=== PATIENT | female | born 1950 | race Caucasian/White ===

== ENCOUNTER → 2019-11-27 08:53 | Outpatient (BNVA) | payer MEDICARE, MEDICAID, SELFPAY | PROVIDERS: Family Provider Internal Medicine; PCP Internal Medicine; Visit Provider Specialist | DX: G43.711 Chronic migraine without aura, intractable, with status migrainosus (principal) | CPT/HCPCS: 64615; J0585 ==

== ENCOUNTER → 2019-12-24 07:54 | Outpatient (BNVA) | payer MEDICARE, MEDICAID, SELFPAY | PROVIDERS: Family Provider Internal Medicine; PCP Internal Medicine; Visit Provider Nurse Practitioner Psychiatric/Mental Health | DX: F25.1 Schizoaffective disorder, depressive type (principal); F41.1 Generalized anxiety disorder; G89.29 Other chronic pain; M54.42 Lumbago with sciatica, left side; M79.651 Pain in right thigh; M79.652 Pain in left thigh; Z79.891 Long term (current) use of opiate analgesic | CPT/HCPCS: 99213; 99214 ==

== ENCOUNTER → 2020-02-20 08:42 | Outpatient (BNVA) | payer MEDICARE, MEDICAID, SELFPAY | PROVIDERS: Family Provider Internal Medicine; PCP Internal Medicine; Visit Provider Nurse Practitioner | DX: Z76.89 Persons encountering health services in other specified circumstances (principal) ==

== ENCOUNTER → 2020-03-18 07:52 | Outpatient (BNVA) | payer MEDICARE, MEDICAID, SELFPAY | PROVIDERS: Family Provider Internal Medicine; PCP Internal Medicine; Visit Provider Specialist | DX: G43.711 Chronic migraine without aura, intractable, with status migrainosus (principal); Z87.891 Personal history of nicotine dependence; Z79.891 Long term (current) use of opiate analgesic | CPT/HCPCS: 64615; J0585; J1885 ==

== ENCOUNTER → 2020-03-31 07:37 | Outpatient (BNVA) | payer MEDICARE, MEDICAID, SELFPAY | PROVIDERS: Family Provider Internal Medicine; PCP Internal Medicine; Visit Provider Nurse Practitioner Psychiatric/Mental Health | DX: F25.1 Schizoaffective disorder, depressive type (principal); F41.1 Generalized anxiety disorder | CPT/HCPCS: 99213 ==

== ENCOUNTER → 2020-05-18 07:18 | Outpatient (BNVA) | payer MEDICARE, MEDICAID, SELFPAY | PROVIDERS: Family Provider Internal Medicine; PCP Internal Medicine; Visit Provider Nurse Practitioner Psychiatric/Mental Health | DX: F25.1 Schizoaffective disorder, depressive type (principal); F41.1 Generalized anxiety disorder | CPT/HCPCS: 99213 ==

== ENCOUNTER → 2020-06-02 10:18 | Outpatient (BNVA) | payer MEDICARE, MEDICAID, SELFPAY | PROVIDERS: Family Provider Internal Medicine; PCP Internal Medicine; Visit Provider Nurse Practitioner | DX: G89.29 Other chronic pain (principal); M54.42 Lumbago with sciatica, left side; Z79.891 Long term (current) use of opiate analgesic | CPT/HCPCS: 99213 ==

== ENCOUNTER → 2020-06-10 07:50 | Outpatient (BNVA) | payer MEDICARE, MEDICAID, SELFPAY | PROVIDERS: Family Provider Internal Medicine; PCP Internal Medicine; Visit Provider Specialist | DX: G43.711 Chronic migraine without aura, intractable, with status migrainosus (principal) | CPT/HCPCS: 64615; J0585 ==

== ENCOUNTER → 2020-07-06 07:35 | Outpatient (BNVA) | payer MEDICARE, MEDICAID, SELFPAY | PROVIDERS: Family Provider Internal Medicine; PCP Internal Medicine; Visit Provider Nurse Practitioner Psychiatric/Mental Health | DX: F25.1 Schizoaffective disorder, depressive type (principal); F41.1 Generalized anxiety disorder | CPT/HCPCS: 99213 ==

== ENCOUNTER → 2020-07-29 08:47 | Outpatient (BNVA) | payer MEDICARE, MEDICAID, SELFPAY | PROVIDERS: Family Provider Internal Medicine; PCP Internal Medicine; Visit Provider Nurse Practitioner | DX: G89.29 Other chronic pain (principal); M54.42 Lumbago with sciatica, left side; Z79.891 Long term (current) use of opiate analgesic | CPT/HCPCS: 99214 ==

== ENCOUNTER → 2020-08-17 07:32 | Outpatient (BNVA) | payer MEDICARE, MEDICAID, SELFPAY | PROVIDERS: Family Provider Internal Medicine; PCP Internal Medicine; Visit Provider Nurse Practitioner Psychiatric/Mental Health | DX: F25.1 Schizoaffective disorder, depressive type (principal); F41.1 Generalized anxiety disorder | CPT/HCPCS: 99213 ==

== ENCOUNTER → 2020-09-23 08:21 | Outpatient (BNVA) | payer MEDICARE, MEDICAID, SELFPAY | PROVIDERS: Family Provider Internal Medicine; PCP Internal Medicine; Visit Provider Anesthesiology | DX: G43.711 Chronic migraine without aura, intractable, with status migrainosus (principal); G89.29 Other chronic pain; M54.42 Lumbago with sciatica, left side; Z79.891 Long term (current) use of opiate analgesic | CPT/HCPCS: 64615; 99213; 99214; J0585 ==

== ENCOUNTER → 2020-10-12 07:21 | Outpatient (BNVA) | payer MEDICARE, MEDICAID, SELFPAY | PROVIDERS: Family Provider Internal Medicine; PCP Internal Medicine; Visit Provider Nurse Practitioner Psychiatric/Mental Health | DX: F25.1 Schizoaffective disorder, depressive type (principal); F41.1 Generalized anxiety disorder | CPT/HCPCS: 99213 ==

== ENCOUNTER → 2020-12-02 10:34 | Outpatient (BNVA) | payer MEDICARE, MEDICAID, SELFPAY | PROVIDERS: Family Provider Internal Medicine; PCP Internal Medicine; Visit Provider Nurse Practitioner | DX: G89.29 Other chronic pain (principal); M54.42 Lumbago with sciatica, left side; M54.41 Lumbago with sciatica, right side; M54.6 Pain in thoracic spine; G43.711 Chronic migraine without aura, intractable, with status migrainosus; Z79.891 Long term (current) use of opiate analgesic | CPT/HCPCS: 99215 ==

== ENCOUNTER → 2020-12-07 07:44 | Outpatient (BNVA) | payer MEDICARE, MEDICAID, SELFPAY | PROVIDERS: Family Provider Internal Medicine; PCP Internal Medicine; Visit Provider Nurse Practitioner Psychiatric/Mental Health | DX: F25.1 Schizoaffective disorder, depressive type (principal); F41.1 Generalized anxiety disorder; Z63.79 Other stressful life events affecting family and household | CPT/HCPCS: 99214 ==

== ENCOUNTER 2020-12-10 13:29 | Outpatient (CLI) | payer MEDICARE, MEDICAID, SELFPAY ==
--- NOTE | 2020-12-10 13:48 | MM_ITS ---
WS: [id number] BILATERAL SCREENING DIGITAL MAMMOGRAM WITH CAD HISTORY: SCREENING COMPARISON: 08/26/2018, 06/20/2011 and 03/30/2017 Bilateral CC and MLO views submitted. Computer aided detection analyzed. Breast composition: There are scattered areas of fibroglandular density. No suspicious masses, microc alcifications or architectural distortion. There are bilateral breast nodules and calcifications whic h have been present on prior studies with no increase. MM/[place] [id number] IMPRESSION: BI-RADS: 2-Benign FOLLOW UP: 1 Year Follow-up
== END 2020-12-10 13:30 | disposition home or self-care (01) ==
PROVIDERS: Family Provider Internal Medicine; PCP Internal Medicine; Visit Provider Internal Medicine
DX: Z12.31 Encounter for screening mammogram for malignant neoplasm of breast (principal)
CPT/HCPCS: 77067

== ENCOUNTER 2020-12-13 09:46 | Outpatient (CLI) | payer MEDICARE, MEDICAID, SELFPAY ==
--- NOTE | 2020-12-13 17:14 | ONC CON_ITS ---
Dr. Flores New Patient Note Patient: Kalyani Cassidy Unit #: [id number]: 1950 Dicatated By: Miller Flores M.D.Date of Visit: Dec 13, 2020 Onc MED New Patient/Consult Referring Physician: Shara Nguyen Chief Complaint: Lung cancer. History of Present Illness: This is a 70-year-old woman with newly diagnosed lung cancer. She has COPD and she had been referred to a fur blender about a year ago. On her follow-up visit in August [address] reported a new slightly spiculated pleural-based nodule in the right upper lobe measuring 2.2 x 1.1 cm. The appearance was suspicious for malignancy. Other small nodules in the left lung appeared stable. An 8 mm precarinal lymph node appeared stable. Calcified subcarinal lymph nodes appeared consistent with old granulomatous disease. Further evaluation with PET/CT on 10/06/2020 showed FDG avid dominant mass in the posterior right upper lobe measuring 1.6 x 2.1 cm, SUV 15.8, consistent with primary lung cancer. Other subcentimeter nodules were FDG negative. There were no other areas of abnormal uptake noted on that study. She underwent CT directed needle biopsy of the right upper lobe mass on 11/25/2020. Pathology showed scant poorly differentiated carcinoma. The reported differential included but was not limited to small cell carcinoma or basaloid squamous cell carcinoma. There was insufficient tissue available for further analysis. She is seen now for further management. She has not had good energy lately, as she unfortunately has been suffering significant depression due to her significant other having recently of cancer. Her ECOG score is 1. Her appetite has been good and her weight has been stable. She has not had fever. She does report having some hot flashes and sweating. She sometimes has sore throat or difficulty swallowing, attributable to her inhalers. She has shortness of breath, but she does not complain of cough. She sometimes has chest pain. She reports having some acid reflux. She has no other GI or complaints. She has some chronic back pain and she also has arthritis pain in her knees. She has chronic migraine, for which she has been getting Botox injections. 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 Past Medical History: Her medical history consists of anxiety, chronic migraine, chronic obstructive pulmonary disease, degenerative arthritis, degenerative disease of the spine, depression, hypertension, and thyroid disease. She has coronary artery disease which is managed medically. She has a history of stroke x 2 in association with patent foramen ovale in 2009. Past Surgical History: Her surgical/procedural history includes appendectomy, left oophorectomy for ovarian cyst, right side of thyroid removed, tubal ligation, cholecystectomy in 2017, EGD and colonoscopy in 2013, and closure of patent foramen ovale in 2010. Medications: Albuterol Sulfate 1 Inhalation (of 2.5 mg/0.5mL) Aerosol Powder, Breath Activated Inhalation q 4 hours PRN, ALPRAZolam 1 Tablet (of 0.25 mg) Oral t.i.d. PRN, amLODIPine Besylate 1 Tablet (of 2.5 mg) Oral daily, [facility] Mucus Extended Release 1 Tablet (of 600 mg) Tablet SR 12 HR Oral four times a day PRN, [facility] Stool Softener 1 Capsule (of 100 mg) Oral four times a day PRN, Daliresp 1 Tablet (of 500 mcg) Oral daily, Escitalopram Oxalate 1 Tablet (of 10 mg) Oral daily, Euthyrox 1 Tablet (of 75 mcg) Oral daily, HYDROcodone-Acetaminophen 1 Tablet (of 5-325 mg) Oral b.i.d. PRN, Meclizine HCl 2 Tablet (of 12.5 mg) Oral daily, methIMAzole 1 Tablet (of 5 mg) Oral daily, Montelukast Sodium 1 Tablet (of 10 mg) Oral daily, Naproxen 500 mg Tablet Oral b.i.d. PRN, Nitro-Dur 1 Patch(es) (of 0.3 mg/hr) Patch 24 Hr Transdermal daily, Pantoprazole Sodium 1 Tablet (of 40 mg) Tablet, enteric coated Oral b.i.d., tiZANidine HCl 1 Tablet (of 2 mg) Oral t.i.d. PRN, traMADol HCl 1 Tablet (of 50 mg) Oral t.i.d. PRN, Trelegy Ellipta 1 Inhalation (of 100-62.5-25 mcg/inh) Aerosol Powder, Breath Activated Inhalation daily Allergies: bee stings and peanuts. Social History: Ms. Cassidy is . She has a history of smoking 1-1/2 packs of cigarettes daily beginning at age 15. She quit smoking at age 62. She does not drink alcohol. Family History: Father with heart disease at age 78. Mother at age 92, also with suspected heart disease. One sister is in good health at age 73. Review Of Symptoms: Constitutional - She has fatigue commonly some which is associated with depression. Her appetite has been good and her weight has been stable. She has not had fever. She does have some hot flashes and sweating. ECOG score is 1, Eyes - No change in vision, ENMT - She has had some hearing loss on the right. No tinnitus. She has sinus congestion/drainage. No mouth sores. She sometimes has sore throat and difficulty swallowing, Hematologic/Lymphatic - No abnormal bruising or bleeding, Respiratory - She has shortness of breath. No cough. No pleuritic pain or hemoptysis, Cardiovascular - She sometimes has chest pain. No palpitations, Gastrointestinal - No nausea or vomiting. She has acid reflux. No diarrhea or constipation. No blood in the stool or black stools, Genitourinary (F) - No dysuria or hematuria. No urinary frequency. No urgency or incontinence, Musculoskeletal - She has a little bit of arthritis, mainly in the knees. She has chronic back pain, Integumentary - No skin rash, Neurologic - She has migraine headaches. She has been on treatment with Botox. She has dizziness. She has some residual numbness on the right side from her previous strokes. No other focal neurologic symptoms, Psychiatric - Her significant other had recently of cancer, that has worsened her depression significantly. She has difficulty sleeping. Vital Signs: Performed on Dec 13, 2020 10:49: 5, 5, 27.28, 1.64 sq.m, 61 in, 97 %, 76 /min, 18 /min, 142/70 mm(hg) (HIGH), 97.1 F (LOW), and 144.4 lbs (HIGH). Physical Examination: Constitutional - She looks pretty good generally, Eyes - Sclerae nonicteric. Conjunctivae clear, ENMT - No lesions noted in the oral cavity, Neck - No mass or thyromegaly, Hematologic/Lymphatic - No cervical, clavicular, or axillary adenopathy, Respiratory - Lungs are clear with diminished air movement bilaterally, Cardiovascular - Heart tones are distant. The rhythm appears regular. There is no murmur, gallop, or rub noted, Abdomen - Soft and non-tender. Liver and spleen are not enlarged. There is no abdominal mass or ascites noted and there is no inguinal adenopathy, Back/Spine - No spine or CVA tenderness noted, Extremities - No edema. Pedal pulses are palpable bilaterally, Integumentary - No rashes. No suspicious skin lesions noted, Neurologic - No focal neurologic deficits noted. Problem List: 1. 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 By clinical evaluation her disease appears to be stage IA3 (T1c, N0, M0). Further pathologic analysis was not possible due to insufficient biopsy material. It is, however, a peripheral lesion and by imaging the appearance is more consistent with non-small cell cancer. 2. COPD with pulmonary function studies from December 2018 showing FEV1 2.09 and FVC 2.75. 3. Hypertension. 4. Coronary artery disease, managed medically. 5. History of stroke in 2009 associated with patent foramen ovale. She underwent PFO closure in 2010. 6. She has history of thyroid disease followed by an prepared foods supervisor. 7. Degenerative arthritis/degenerative disease of the spine. 8. Chronic migraine. 9. Anxiety/depression. 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 By clinical evaluation her disease appears to be stage IA3 (T1c, N0, M0). Further pathologic analysis was not possible due to insufficient biopsy material. I reviewed the CT images which confirm a peripherally located pulmonary nodule. Given the fact that it is pleural-based, it would more likely be a non-small cell cancer, but that cannot be determined with certainty without additional biopsy. I reviewed the CT findings and pathology results with the patient. As her disease appears to be localized, it may potentially be operable. The other treatment option would be SBRT. I did review the CT with the radiation oncologist to confirm that it would be amenable to SBRT. I will plan now to review the scans with Dr. De Souza. If the lesion does appear to be resectable, she would need additional evaluation to determine if she is medically suitable for surgery. If for any reason she is deemed unsuitable for surgery, she will be referred for SBRT. Signed By: Miller Flores M.D. <<Signature on File>>
--- NOTE | 2023-09-26 09:44 | ONCRAD EPV_ITS ---
Radiation Oncology Established Patient Visit Patient: Kalyani Cassidy [id number] : 1950 Age: 73 Sex: Female Dictated by: Dr. Dia Sorenson Date of Service: 09/26/2023 Referring Physician(s) : Shara Nguyen Diagnosis: C34.11 - Malignant neoplasm of upper lobe, right bronchus or lung, Diagnosed 11/25/2020 (Active) Stage IA3, T1c, N0, M0 Stage Ia/T1c adenocarcinoma of the right upper lobe treated SABR January 2021 Interval history: Patient is a 73-year-old lady who returns today for her 6-month checkup with a CT scan. Her CT scan on September 21, 2023 did not reveal any new lesions or any changes and was stable as compared to the one 6 months prior. She has in the interim had a bone density test done which is shown that she has osteoporosis with a 36% risk of major fracture in 10 years. She is also scheduled first part of October to undergo repeat mammogram and ultrasound. She had a mammogram and ultrasound in May 2022 which was felt to be benign. She still continues to have a lump in the right breast. Subjectively she is in good spirits. Her only complaints today are her low back pain which has been chronic for many years. She has a good appetite. She denies any new aches or pains. She sleeps well. Her energy level is coming up as well since she was placed on antidepressant a month ago. Past history: She has COPD and she had been referred to a product representative about a year ago. On her follow-up visit in August [address] reported a new slightly spiculated pleural-based nodule in the right upper lobe measuring 2.2 x 1.1 cm. The appearance was suspicious for malignancy. Other small nodules in the left lung appeared stable. An 8 mm precarinal lymph node appeared stable. Calcified subcarinal lymph nodes appeared consistent with old granulomatous disease. Further evaluation with PET/CT on 10/06/2020 showed FDG avid dominant mass in the posterior right upper lobe measuring 1.6 x 2.1 cm, SUV 15.8, consistent with primary lung cancer. Other subcentimeter nodules were FDG negative. There were no other areas of abnormal uptake noted on that study. She underwent CT directed needle biopsy of the right upper lobe mass on 11/25/2020. Pathology showed scant poorly differentiated carcinoma. The reported differential included but was not limited to small cell carcinoma or basaloid squamous cell carcinoma. There was insufficient tissue available for further analysis. She is seen now for further management. She has not had good energy lately, as she unfortunately has been suffering significant depression due to her significant other having recently of cancer. Her ECOG score is 1. Her appetite has been good and her weight has been stable. She has not had fever. She does report having some hot flashes and sweating. She sometimes has sore throat or difficulty swallowing, attributable to her inhalers. She has shortness of breath, but she does not complain of cough. She sometimes has chest pain. She reports having some acid reflux. She has no other GI or complaints. She has some chronic back pain and she also has arthritis pain in her knees. She has chronic migraine, for which she has been getting Botox injections. 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 Radiotherapy to Date: Course: Lung - SABR 2020, Treatment Site: Lung Ca, Ref. ID: [id number], Energy: 6X, Dose/Fx (cGy): 1,800, #Fx: 3 / 3, Dose Correction (cGy): 0, Total Dose (cGy): 5,400, Start Date: 02/07/2021, End Date: 02/11/2021, Elapsed Days: 4 Current History: Current Medications: Albuterol Sulfate, aLPRAZolam, amLODIPine Besylate, cVS Mucus Extended Release, cVS Stool Softener, daliresp, escitalopram Oxalate, euthyrox, hYDROcodone-Acetaminophen, meclizine HCl, montelukast Sodium, naproxen, nitro-Dur, pantoprazole Sodium, tiZANidine HCl, traMADol HCl, trelegy Ellipta. Allergies: peanuts and bee stings. Current Complaints / Review of Systems: . Chronic low back pain Vital Signs: Performed on 09/26/2023 8:55 AM BMI - 25.508 kg/m2 (high), Height - 61 in, Weight - 135 lbs, Temperature - 96.7 f, Pulse - 75 /min, Respiration - 16 /min, O2 Sat - 97 %, Pain - 0, Fatigue - 0 and BP - 142/ 63 mm(hg)(high/low). Physical Exam: General: Alert and oriented x 3. No acute distress. HEENT: Normocephalic, atraumatic. Extraocular Movements Intact: Pupils Equal, Round, Reactive to Light and Accommodation: Sclerae anicteric. Oral cavity is clear without lesions, masses or ulcers. NECK: Supple without cervical or supraclavicular adenopathy. Breast: She has a palpable 1 cm mass in the upper outer quadrant of the right breast. This is somewhat tender on palpation. LUNGS: Clear to auscultation bilaterally without good air movement throughout. HEART: Regular rate and rhythm,. MUSCULOSKELETAL: She has some mild areas of tenderness in the lumbar spine.. ABDOMEN: Soft, nontender, nondistended without masses or organomegaly. Bowell sounds are present. EXTREMITIES: No peripheral edema is identified. Limited motor and sensory examination are grossly intact and symmetric bilaterally. NEUROLOGIC: Alert and oriented x3. Speech intact. She does hesitate during some parts of our encounter trying to remember things. She declares that she has had 2 strokes. Normal gait, no ataxia. Performance Status: ECOG 1 Lab: None pending. Pathology: Primary, c34.11 - malignant neoplasm of upper lobe, right bronchus or lung, Diagnosed 11/25/2020 (active) stage ia3, t1c, n0, m0. Imaging: CT scan was stable from May 2023 Impression: Adenocarcinoma of the lung stage I status post as a BR January 2021 Plan: Patient is doing clinically well. We talked today about continuing with her 6-month CT scans which she would like to do. She will also go ahead and keep her appointments to get her mammogram done. I have also asked her to call her primary care doctor to see if she can get set up to have treatment for her osteoporosis. I will otherwise see her back in [address] scan or she will call if any problems arise in the interim. Signed by: 09/26/2023 9:42:57 AM <<Signature on File>> Time spent with patient:[address] Canales at [facility] CPT Code: CPT Code:
== END 2020-12-13 09:47 | disposition home or self-care (01) ==
LOC: ONCMED 09:50
PROVIDERS: Family Provider Internal Medicine; PCP Internal Medicine; Visit Provider Internal Medicine Medical Oncology
DX: C34.11 Malignant neoplasm of upper lobe, right bronchus or lung (principal); J44.9 Chronic obstructive pulmonary disease, unspecified; I10 Essential (primary) hypertension; I25.10 Atherosclerotic heart disease of native coronary artery without angina pectoris; I69.398 Other sequelae of cerebral infarction; R20.2 Paresthesia of skin; F41.8 Other specified anxiety disorders; G43.709 Chronic migraine without aura, not intractable, without status migrainosus
CPT/HCPCS: 99205

== ENCOUNTER → 2020-12-16 08:16 | Outpatient (BNVA) | payer MEDICARE, MEDICAID, SELFPAY | PROVIDERS: Family Provider Internal Medicine; PCP Internal Medicine; Visit Provider Specialist | DX: G43.711 Chronic migraine without aura, intractable, with status migrainosus (principal); Z86.73 Personal history of transient ischemic attack (TIA), and cerebral infarction without residual deficits; Z63.79 Other stressful life events affecting family and household; Z87.891 Personal history of nicotine dependence | CPT/HCPCS: 64615; 99213; J0585 ==

== ENCOUNTER → 2020-12-24 12:10 | Outpatient (BNVA) | payer MEDICARE, MEDICAID, SELFPAY | PROVIDERS: Family Provider Internal Medicine; PCP Internal Medicine; Visit Provider Internal Medicine Critical Care Medicine | DX: Z01.812 Encounter for preprocedural laboratory examination (principal); C34.90 Malignant neoplasm of unspecified part of unspecified bronchus or lung | CPT/HCPCS: 87635 ==

== ENCOUNTER 2020-12-28 13:00 | Outpatient (CLI) | payer MEDICARE, MEDICAID, SELFPAY ==
--- NOTE | 2020-12-28 14:10 | PFTS_ITS ---
Date of Study:12/28/20 Date of Dictation: MECHANICS: Forced vital capacity (FVC) is reduced. Forced expiratory volume in one second (FEV1) is reduced. FEV1/FVC is reduced. FLOW VOLUME LOOP: Reduced flow at all lung volumes with significant scooping. LUNG VOLUMES: Total lung capacity (TLC) is normal. Residual volume (RV) is increased. DIFFUSING CAPACITY FOR CARBON MONOXIDE: Moderately reduced. INTERPRETATION: The postbronchodilator spirometry is consistent with severe airflow obstruction. There is a significant postbronchodilator response. Lung volumes are consistent with air trapping. Gas exchange (DLCO) is moderately reduced. MTDD
== END 2020-12-28 13:01 | disposition home or self-care (01) ==
LOC: RT 13:01
PROVIDERS: PCP Internal Medicine; Visit Provider Internal Medicine Critical Care Medicine
DX: C34.90 Malignant neoplasm of unspecified part of unspecified bronchus or lung (principal)
CPT/HCPCS: 94060; 94726; 94729; J7611

== ENCOUNTER 2020-12-30 10:55 | Outpatient (CLI) | payer MEDICARE, MEDICAID, SELFPAY ==
--- NOTE | 2020-12-30 11:00 | CT_ITS ---
WS: [id number] CT CHEST WITHOUT INTRAVENOUS CONTRAST HISTORY: LUNG CA TECHNIQUE: Contiguous 5 mm axial imaging performed on the thorax. Coronal and sagittal reformats are submitted. All CT scans at [facility] use at least one of these dose optimization techniq ues: automated exposure control; mA and/or kV adjustment per patient size (includes targeted exams wh ere dose is matched to clinical indication); or iterative reconstruction. CONTRAST: None DLP: 594.66 mGycm COMPARISON: 09/03/2020 Lungs and central airway: Hyperexpansion of the lungs due to emphysema. Stable biapical pleural thick ening and fibrosis. Very minimal increase in size of the posterior RIGHT upper lobe spiculated lobula david nodule measuring 2.0 x 2.0 cm. There are additional scattered granulomata and a few very small LE FT lung nodules which are unchanged. Pleura: Normal. No pleural effusion. Heart and pericardium: Normal size heart with no pericardial effusion. Mediastinum and jose carlos: No mediastinum or hilar adenopathy. Vessels: Mild atherosclerosis aorta. Normal size pulmonary artery. Chest wall and lower neck: No soft tissue masses. Upper abdomen: Small hiatal hernia. Our cholecystectomy. Atherosclerosis suprarenal aorta. Mild thick ening of the LEFT adrenal gland limbs. Similar to the prior study. Osseous structures: Increase in thoracic kyphosis. No osteoblastic or osteolytic disease. CT/CT chest wo con [id number] IMPRESSION: 1. Very minimal increase in size of the RIGHT upper lobe subpleural-based nodu le. Minimal change since 09/03/2020. 2. No new or increasing nodules. Prior granulomatous disease. 3. Chronic emphysema. 4. Small hiatal hernia and prior cholecystectomy.
--- NOTE | 2020-12-30 11:00 | CT_ITS ---
WS: [id number] CT THORACIC SPINE HISTORY: THORACIC BACK PAIN, LUNG CANCER TECHNIQUE: Contiguous 2.5 mm axial images are reviewed to thoracic spine. Images are reformatted in s agittal and coronal planes. All CT scans at [facility] use at least one of these dose opt imization techniques: automated exposure control; mA and/or kV adjustment per patient size (includes targeted exams where dose is matched to clinical indication); or iterative reconstruction. DLP: 1071.08 mGycm COMPARISON: None available. Increase in thoracic kyphosis. No osteoblastic or osteolytic bone disease. Small endplate osteophytes . No acute-appearing disc herniations, central or foraminal stenosis. Again noted is the pleural-based mass in the RIGHT upper lobe that was described on prior CT evaluati ons. CT/CT thoracic spin wo con* [id number] IMPRESSION: 1. No metastatic lesions noted in the thoracic spine. 2. No cord compression identified on this unenhanced study. 3. Mild increase in thoracic kyphosis. Notified Julio Rodríguez MD at 12/30/2020 11:39 AM. Not available.
== END 2020-12-30 10:56 | disposition home or self-care (01) ==
LOC: RADWPI 11:00
PROVIDERS: PCP Internal Medicine; Visit Provider Family Medicine
DX: C34.90 Malignant neoplasm of unspecified part of unspecified bronchus or lung (principal); M54.6 Pain in thoracic spine; M40.294 Other kyphosis, thoracic region; K44.9 Diaphragmatic hernia without obstruction or gangrene; Z90.49 Acquired absence of other specified parts of digestive tract; J43.9 Emphysema, unspecified; D71 Functional disorders of polymorphonuclear neutrophils
CPT/HCPCS: 71250; 72128

== ENCOUNTER → 2021-01-07 07:38 | Outpatient (BNVA) | payer MEDICARE, MEDICAID, SELFPAY | PROVIDERS: PCP Internal Medicine; Visit Provider Nurse Practitioner Psychiatric/Mental Health | DX: F25.1 Schizoaffective disorder, depressive type (principal); F41.1 Generalized anxiety disorder; Z63.79 Other stressful life events affecting family and household | CPT/HCPCS: 99214 ==

== ENCOUNTER 2021-01-27 08:16 | Outpatient (CLI) | payer MEDICARE, MEDICAID, SELFPAY ==
--- NOTE | 2021-01-27 09:51 | N.ONRAD NP_ITS ---
Radiation Oncology Consultation Patient Name: Kalyani Cassidy Date of : 1950 Date of Service: 01/27/2021 Attending Physician: Lionel Paul M.D. Kalyani Cassidy was seen in consultation this morning at the request of Miller Flores M.D. for consideration of stereotactic ablative body radiotherapy in the management of her recently diagnosed non-small cell lung cancer. A surveillance CT of the chest obtained in August 2020 for evaluation of lung nodules demonstrated a new pleural-based right upper lobe density measuring 2.2 cm x 1.1 cm. The previously identified lung nodules were stable. A PET CT ordered on October 06, 2020 (directly visualized in [facility]) revealed a the posterior right upper lobe lesion (SUV 15.8) without evidence of metastatic disease. A CT-guided needle biopsy completed on November 25, 2020 diagnosed a poorly differentiated carcinoma (insufficient tissue for further characterization). Pulmonary function testing (report was independently reviewed in [employer]) revealed an obstructive ventilatory defect (increased TLC and RV; FEV1 69% and DLCO 72% of predicted). The patient presents for discussion regarding consideration for SABR. I discussed with Ms. Cassidy the AJCC stage IA3 (T1cN0) lung cancer corresponding to her disease. She is aware that the National Comprehensive Cancer Network Guidelines recommend surgical resection in operable patients. However, for patients deemed medically inoperable without lymphadenopathy, stereotactic radiotherapy is preferable. I reviewed the RTOG 0236 phase II trial that enrolled non-small cell lung cancer patients with peripheral T1 and T2 and medical conditions precluding surgical treatment to SABR. The 3-year primary tumor local control of 97% with an overall median survival of 48 months. I also discussed the SPACE trial that randomized stage I non-small cell lung cancer patients to SABR or conventional fractionated radiotherapy. Progression free survival was improved and a significant decrement in adverse events were documented in the SABR treatment arm. I would recommend an ultra-hypofractionated course of stereotactic radiotherapy. A 4-dimensional computed tomographic will be performed for radiotherapy planning. Potential toxicities of stereotactic body radiotherapy to the lung were reviewed. The patient has verbalized understanding and would like to proceed as recommended. Signed by: Dr. Lionel Paul 01/27/2021 9:50:29 AM
== END 2021-01-27 08:17 | disposition home or self-care (01) ==
LOC: ONCMED 08:20
PROVIDERS: PCP Internal Medicine; Visit Provider Radiology Radiation Oncology
DX: C34.11 Malignant neoplasm of upper lobe, right bronchus or lung (principal)
CPT/HCPCS: 99215

== ENCOUNTER → 2021-02-03 07:57 | Outpatient (BNVA) | payer MEDICARE, MEDICAID, SELFPAY | PROVIDERS: PCP Internal Medicine; Visit Provider Nurse Practitioner Psychiatric/Mental Health | DX: F25.1 Schizoaffective disorder, depressive type (principal); F41.1 Generalized anxiety disorder; Z63.79 Other stressful life events affecting family and household; F42.3 Hoarding disorder | CPT/HCPCS: 99214 ==

== ENCOUNTER 2021-02-11 05:45 | Outpatient (RCR) | payer MEDICARE, MEDICAID, SELFPAY ==
--- NOTE | 2021-02-01 | CT_ITS ---
Radiation Therapy Planning CT images; total exam DLP: 721.37 mGy-cm MTDD
--- NOTE | 2021-02-11 12:04 | ONCRAD TMN_ITS ---
Radiation Oncology Treatment Management Note Patient Name: Kalyani Cassidy Date of : 1950 Date of Service: 02/11/2021 Attending Physician: Lionel Paul M.D. Kalyani Cassidy is a 70 year old white female diagnosed with a clinical stage IA3 (T1cN0) poorly differentiated carcinoma of the right upper lobe of the lung. The patient has received 54 Gy of a prescribed 54 Corrigan (SABR) delivered with an intensity modulated radiotherapy plan utilizing a step and shoot treatment technique. Upon review of systems, she any changes in her pulmonary function. On physical examination, the patient weighed 138 lbs. Her temperature was 98.1 ???F with a blood pressure of 155/79 mmHg. The pulse was 77 bpm and her respiratory rate was 18. Oxygen saturation while breathing room air was 98%. There was no erythema within the treatment rosa. Stereotactic ablative body radiotherapy was completed today. She will return for post-radiotherapy evaluation in 1 month. Signed by: Dr. Lionel Paul 02/11/2021 12:03:10 PM
== END 2021-02-16 23:59 | disposition home or self-care (01) ==
LOC: ONCMED 05:45
PROVIDERS: PCP Internal Medicine; Visit Provider Radiology Radiation Oncology
DX: Z51.0 Encounter for antineoplastic radiation therapy (principal); C34.11 Malignant neoplasm of upper lobe, right bronchus or lung; G89.29 Other chronic pain; M54.42 Lumbago with sciatica, left side; M54.6 Pain in thoracic spine; G43.711 Chronic migraine without aura, intractable, with status migrainosus; Z79.891 Long term (current) use of opiate analgesic; Z79.1 Long term (current) use of non-steroidal anti-inflammatories (NSAID)
CPT/HCPCS: 77300; 77301; 77334; 77338; 77373; 77470; 99213

== ENCOUNTER → 2021-03-03 08:33 | Outpatient (BNVA) | payer MEDICARE, MEDICAID, SELFPAY | PROVIDERS: PCP Internal Medicine; Visit Provider Nurse Practitioner Psychiatric/Mental Health | DX: F25.1 Schizoaffective disorder, depressive type (principal); F41.1 Generalized anxiety disorder; Z63.79 Other stressful life events affecting family and household; F42.3 Hoarding disorder | CPT/HCPCS: 99214 ==

== ENCOUNTER → 2021-03-17 08:19 | Outpatient (BNVA) | payer MEDICARE, MEDICAID, SELFPAY | PROVIDERS: PCP Internal Medicine; Visit Provider Specialist | DX: G43.709 Chronic migraine without aura, not intractable, without status migrainosus (principal); Z87.891 Personal history of nicotine dependence | CPT/HCPCS: 64615; J0585 ==

== ENCOUNTER → 2021-04-05 09:38 | Outpatient (BNVA) | payer MEDICARE, MEDICAID, SELFPAY | PROVIDERS: PCP Internal Medicine; Visit Provider Nurse Practitioner | DX: G89.29 Other chronic pain (principal); M54.42 Lumbago with sciatica, left side; M54.6 Pain in thoracic spine; G43.711 Chronic migraine without aura, intractable, with status migrainosus; Z79.891 Long term (current) use of opiate analgesic | CPT/HCPCS: 99213 ==

== ENCOUNTER → 2021-04-07 07:50 | Outpatient (BNVA) | payer MEDICARE, MEDICAID, SELFPAY | PROVIDERS: PCP Internal Medicine; Visit Provider Nurse Practitioner Psychiatric/Mental Health | DX: F25.1 Schizoaffective disorder, depressive type (principal); F41.1 Generalized anxiety disorder; Z63.79 Other stressful life events affecting family and household; F42.3 Hoarding disorder | CPT/HCPCS: 99214 ==

== ENCOUNTER 2021-05-30 10:09 | Outpatient (CLI) | payer MEDICARE, MEDICAID, SELFPAY ==
--- NOTE | 2021-05-30 10:15 | CT_ITS ---
WS: [id number] K[address] CHEST AND ABDOMEN WITH CONTRAST HISTORY: Cancer follow-up. History of lung cancer. TECHNIQUE: Axial imaging is performed through the chest and abdomen with IV and oral contrast.. Sagit gaurav and coronal reformats. All CT scans at [facility] use at least one of these dose opti mization techniques: automated exposure control; mA and/or kV adjustment per patient size (includes t argeted exams where dose is matched to clinical indication); or iterative reconstruction. CONTRAST: Omnipaque 300; 95 mL IV. DLP: 1012.07 mGy-cm. COMPARISON: 12/30/2020 and 10/08/[address]: Subpleural nodule in the RIGHT upper lobe has significantly decreased in size since the prior study n ow measuring 1.4 x 1.0 cm. Maximum diameter has decreased from 2.0 to 1.4 cm. Mild pleural thickening and tethering surrounding the lesion. 3 mm nodule in the periphery LEFT upper lobe has been previous ly described. There are a few benign calcified granulomata. No new or increasing pulmonary nodules. M oderate emphysema. No pneumonia. No pericardial or pleural effusions. Normal size heart. No significant lymphadenopathy. Moderate coronary artery calcification and thoracic aortic calcificat ions. Pulmonary artery size is normal. Abdomen CT: Small hiatal hernia. Stable low-attenuation nodule between the middle and LEFT hepatic veins is stabl e. There is an additional low-attenuation nodule measuring 13 mm in the RIGHT lobe of the liver which is probably a benign hemangioma. No new lesions within the liver to suggest metastatic disease. Prio r cholecystectomy. Normal spleen with an adjacent splenule. No pancreatic abnormality. RIGHT adrenal gland is normal. Lobulated LEFT adrenal gland with low-attenuation nodules measuring up to 12 mm. Sim ilar to prior studies and is most consistent with adenomas. Atherosclerosis aorta. No ascites or adenopathy within the abdomen. Visualized GI tract is negative. Increase in thoracic kyphosis. No osteoblastic or osteolytic bone disease. CT/CT chest abdomen w con* IMPRESSION: 1. Significant decrease in size of the RIGHT upper lobe nodule described on 09/2021. Nodule now measures 1.4 x 1.0 cm. 2. No mediastinal or hilar adenopathy. 3. Stable lesions within the liver with no evidence for metastatic disease. 4. Prior cholecystectomy.
[2021-05-30] MEDS: iohexol 300 mg/mL 50 mL Btl PO (10:40)
[2021-05-30 11:44] LABS: Blood Urea Nitrogen 9 mg/dL (8-23)
[2021-05-30] MEDS: iohexol 300 mg/mL 100 mL Btl IV (11:54)
== END 2021-05-30 10:10 | disposition home or self-care (01) ==
PROVIDERS: PCP Internal Medicine; Visit Provider Radiology Radiation Oncology
DX: C34.11 Malignant neoplasm of upper lobe, right bronchus or lung (principal); Z90.49 Acquired absence of other specified parts of digestive tract
CPT/HCPCS: 71260; 74160; 82565; 84520; Q9967

== ENCOUNTER → 2021-06-02 07:26 | Outpatient (BNVA) | payer MEDICARE, MEDICAID, SELFPAY | PROVIDERS: PCP Internal Medicine; Visit Provider Nurse Practitioner Psychiatric/Mental Health | DX: F25.1 Schizoaffective disorder, depressive type (principal); F41.1 Generalized anxiety disorder; Z63.79 Other stressful life events affecting family and household; F42.3 Hoarding disorder | CPT/HCPCS: 99214 ==

== ENCOUNTER 2021-06-03 08:17 | Outpatient (CLI) | payer MEDICARE, MEDICAID, SELFPAY ==
--- NOTE | 2021-06-03 08:53 | ONCRAD EPV_ITS ---
Radiation Oncology Follow-Up Note Patient Name: Kalyani Cassidy Date of : 1950 Date of Service: 06/03/2021 Attending Physician: Lionel Paul M.D. Kalyani Cassidy returned to my office this morning for a routinely scheduled follow-up appointment. She completed stereotactic ablative body radiotherapy in January for the management of a clinical stage IA3 (T1cN0) poorly differentiated carcinoma of the right upper lobe of the lung. SABR was delivered between the dates of February 07, 2021 through February 11, 2021. A prescribed dose of 54 Gy was delivered in three fractions encompassing [address] ordered on May 30 demonstrated a significant response. The right upper-lobe subpleural nodule now measures 1.4 cm (initially 2 cm) without evidence of hilar or mediastinal adenopathy. No distant metastatic disease was present. On review of systems, she patient denied any new pulmonary complaints. On physical examination, she weighed 134 lbs. The temperature was 96.9???F. Her blood pressure was 160/82 mmHg. The pulse was 72 bpm and her respiratory rate was 20 breaths per minute. Oxygen saturation while breathing room air was 99 %. Bilateral decreased breath sounds were auscultated. In summary, Ms. Cassidy returned for a routine post radiotherapy follow-up. She will return as scheduled per NCCN. Signed by: Dr. Lionel Paul 06/03/2021 8:51:30 AM
== END 2021-06-03 08:18 | disposition home or self-care (01) ==
LOC: ONCMED 08:22
PROVIDERS: PCP Internal Medicine; Visit Provider Radiology Radiation Oncology
DX: C34.11 Malignant neoplasm of upper lobe, right bronchus or lung (principal); R06.00 Dyspnea, unspecified; Z79.899 Other long term (current) drug therapy
CPT/HCPCS: 99215

== ENCOUNTER → 2021-06-09 08:15 | Outpatient (BNVA) | payer MEDICARE, MEDICAID, SELFPAY | PROVIDERS: PCP Internal Medicine; Visit Provider Specialist | DX: G43.709 Chronic migraine without aura, not intractable, without status migrainosus (principal) | CPT/HCPCS: 64615; J0585 ==

== ENCOUNTER → 2021-06-15 09:48 | Outpatient (BNVA) | payer MEDICARE, MEDICAID, SELFPAY | PROVIDERS: PCP Internal Medicine; Visit Provider Anesthesiology | DX: G89.29 Other chronic pain (principal); M54.6 Pain in thoracic spine; M54.42 Lumbago with sciatica, left side; G43.711 Chronic migraine without aura, intractable, with status migrainosus; Z79.891 Long term (current) use of opiate analgesic | CPT/HCPCS: 99213 ==

== ENCOUNTER → 2021-07-06 07:45 | Outpatient (BNVA) | payer MEDICARE, MEDICAID, SELFPAY | PROVIDERS: PCP Internal Medicine; Visit Provider Nurse Practitioner Psychiatric/Mental Health | DX: F25.1 Schizoaffective disorder, depressive type (principal); F41.1 Generalized anxiety disorder; Z63.79 Other stressful life events affecting family and household; F42.3 Hoarding disorder | CPT/HCPCS: 99214 ==

== ENCOUNTER → 2021-08-17 07:28 | Outpatient (BNVA) | payer MEDICARE, MEDICAID, SELFPAY | PROVIDERS: PCP Internal Medicine; Visit Provider Nurse Practitioner Psychiatric/Mental Health | DX: F25.1 Schizoaffective disorder, depressive type (principal); F41.1 Generalized anxiety disorder; F42.3 Hoarding disorder; Z63.79 Other stressful life events affecting family and household | CPT/HCPCS: 99214 ==

== ENCOUNTER → 2021-08-19 07:58 | Outpatient (BNVA) | payer MEDICARE, MEDICAID, SELFPAY | PROVIDERS: PCP Internal Medicine; Visit Provider Anesthesiology | DX: G89.29 Other chronic pain (principal); M54.42 Lumbago with sciatica, left side; M54.6 Pain in thoracic spine; C34.91 Malignant neoplasm of unspecified part of right bronchus or lung; Z79.891 Long term (current) use of opiate analgesic | CPT/HCPCS: 99213 ==

== ENCOUNTER 2021-08-30 09:01 | Outpatient (CLI) | payer MEDICARE, MEDICAID, SELFPAY ==
--- NOTE | 2021-08-30 10:22 | CT_ITS ---
WS: [id number] CT CHEST WITH INTRAVENOUS CONTRAST HISTORY: RESTAGING EVALUATION/HX OF CANCER-LUNG CANCER TECHNIQUE: Contiguous 5 mm axial imaging performed on the thorax. Coronal and sagittal reformats are submitted. All CT scans at [facility] use at least one of these dose optimization techniques: automated exposure control; mA and/or kV adjustment per patient size (includes targeted exams where dose is matched to clinical indication); or iterative reconstruction. CONTRAST: Omnipaque 300; 95 mL IV. DLP: 341.96 mGy.cm COMPARISON: 05/30/2021 Lungs and central airway: New spiculated nodule in the central RIGHT upper lobe. This new nodule steve ures 14 x 15 mm. Continued slight decrease in size of the irregular nodule measuring 13 mm in the pos terior RIGHT upper lobe. There is a new area of subpleural thickening measuring 10 mm in the posterio r RIGHT upper lobe. All 3 of these opacifications are close to each other. New linear 6 mm nodule in the RIGHT middle lobe. Stable 3 mm nodule LEFT upper lobe. Mild interstitial thickening in the RIGHT upper lobe. Pleura: No effusions. Heart and pericardium: Normal size heart with no pericardial effusion. Mediastinum and jose carlos: 10 mm precarinal lymph node has slightly increased in size. Stable 8 mm RIGHT h ilar lymph node. Vessels: Mild atherosclerosis aorta. Normal size pulmonary artery. Chest wall and lower neck: Absent RIGHT thyroid lobe. Subcentimeter nodule in the LEFT thyroid. Multi ple small nodules in the LEFT breast have been present on prior studies. Upper abdomen: Several hypodense nodules in the liver have been stable on multiple prior studies. Flavia or cholecystectomy. LEFT adrenal 9 mm nodule. LEFT adrenal nodule has been present on prior studies. No increase in size. Small hiatal hernia. Osseous structures: Increase in thoracic kyphosis. No osteoblastic or osteolytic disease. CT/CT chest w con* [id number] IMPRESSION: 1. New spiculated nodule RIGHT upper lobe measures 14 x 15 mm. New metastatic lesion is not excluded. PET/CT imaging or short term chest CT follow-up recomme nded. 2. Previously described subpleural nodule in the RIGHT upper lobe continues to decrease in size now measuring 13 mm at its maximum. There is an adjacent subp leural 10 mm nodule in the RIGHT upper lobe which may be an area of atelectasis /post radiation pneumonitis or metastatic site. 3. Minimal increase in size precarinal lymph node now measuring 10 mm but stil l not enlarged.
[2021-08-30] MEDS: iohexol 300 mg/mL 100 mL Btl IV (11:37)
[2021-09-01 06:54] LABS: Albumin Level 4.1 g/dL (3.5-5.2); Alkaline Phosphatase 103 IU/L (35-105); Anion Gap 18.1 (5-19); Aspartate Amino Transferase 37 U/L (0-32); Blood Urea Nitrogen 9 mg/dL (8-23); Calcium 8.9 mg/dL (8.5-10.5); Carbon Dioxide 24 mmol/L (22-29); Chloride 98 mmol/L (98-107); Glucose 94 mg/dL (65-115); Osmolality Calculated 280 mOsm/kg (285-295); Potassium 4.1 mmol/L (3.5-5.1); Sodium 136 mmol/L (136-145); Total Bilirubin 0.5 mg/dL (0.15-1.2); Total Protein 7.1 g/dL (6.6-8.7)
[2021-09-01 07:46] LABS: Alanine Aminotransferase 19 U/L (0-33)
== END 2021-08-30 09:02 | disposition home or self-care (01) ==
LOC: RAD 09:02 → ONCMED 09:23
PROVIDERS: PCP Internal Medicine; Visit Provider Radiology Radiation Oncology
DX: C34.11 Malignant neoplasm of upper lobe, right bronchus or lung (principal)
CPT/HCPCS: 36415; 71260; 80053; 82565; 84520; Q9967

== ENCOUNTER → 2021-09-01 08:10 | Outpatient (BNVA) | payer MEDICARE, MEDICAID, SELFPAY | PROVIDERS: PCP Internal Medicine; Visit Provider Specialist | DX: G43.711 Chronic migraine without aura, intractable, with status migrainosus (principal); Z87.891 Personal history of nicotine dependence | CPT/HCPCS: 64615; J0585 ==

== ENCOUNTER 2021-09-02 06:43 | Outpatient (CLI) | payer MEDICARE, MEDICAID, SELFPAY ==
--- NOTE | 2021-09-02 08:56 | ONCRAD EPV_ITS ---
Radiation Oncology Follow-Up Note Patient Name: Kalyani Cassidy Date of : 1950 Date of Service: 09/02/2021 Attending Physician: Lionel Paul M.D. Kalyani Cassidy returned to my office this morning for a routinely scheduled follow-up appointment. She completed stereotactic ablative body radiotherapy in January for the management of a clinical stage IA3 (T1cN0) poorly differentiated carcinoma of the right upper lobe of the lung. SABR was delivered between the dates of February 07, 2021 through February 11, 2021. A prescribed dose of 54 Gy was delivered in three fractions encompassing [address] ordered on May 30 demonstrated a significant response. The right upper-lobe subpleural nodule now measures 1.4 cm (initially 2 cm). Surveillance imaging performed on August 30, 2021 (independently visualized in [facility]) described a new nodule in the central aspect of the right upper lobe measuring 1.4 cm x 1.5 cm and a 1 cm precarinal lymph node. The previously treated right upper-lobe subpleural nodule was stable (1.3 cm). On review of systems, she patient denied any new pulmonary complaints. On physical examination, she weighed 132 lbs. The temperature was 96.3???F. Her blood pressure was 139/65 mmHg. The pulse was 75 bpm and her respiratory rate was 20 breaths per minute. Oxygen saturation while breathing room air was 99 %. Bilateral decreased breath sounds were auscultated. In summary, Ms. Cassidy returned for a routine post radiotherapy follow-up. I will request a PET CT to assess the new CT findings. Signed by: Dr. Lionel Paul 09/02/2021 8:55:40 AM
== END 2021-09-02 06:44 | disposition home or self-care (01) ==
LOC: ONCMED 06:45
PROVIDERS: PCP Internal Medicine; Visit Provider Radiology Radiation Oncology
DX: C34.11 Malignant neoplasm of upper lobe, right bronchus or lung (principal); Z92.3 Personal history of irradiation
CPT/HCPCS: 99024

== ENCOUNTER → 2021-09-14 07:34 | Outpatient (BNVA) | payer MEDICARE, MEDICAID, SELFPAY | PROVIDERS: PCP Internal Medicine; Visit Provider Nurse Practitioner Psychiatric/Mental Health | DX: F25.1 Schizoaffective disorder, depressive type (principal); F41.1 Generalized anxiety disorder; Z63.79 Other stressful life events affecting family and household; F42.3 Hoarding disorder | CPT/HCPCS: 99214 ==

== ENCOUNTER 2021-09-30 09:00 | Outpatient (CLI) | payer MEDICARE, MEDICAID, SELFPAY ==
--- NOTE | 2021-09-30 09:37 | ONCRAD EPV_ITS ---
Radiation Oncology Follow-Up Note Patient Name: Kalyani Cassidy Date of : 1950 Date of Service: 09/30/2021 Attending Physician: Lionel Paul M.D. Kalyani Cassidy returned to my office this morning for a routinely scheduled follow-up appointment. She completed stereotactic ablative body radiotherapy in January for the management of a clinical stage IA3 (T1cN0) poorly differentiated carcinoma of the right upper lobe of the lung. SABR was delivered between the dates of February 07, 2021 through February 11, 2021. A prescribed dose of 54 Gy was delivered in three fractions encompassing [address] ordered on May 30 demonstrated a significant response. The right upper-lobe subpleural nodule now measures 1.4 cm (initially 2 cm). Surveillance imaging performed on August 30, 2021 described a new nodule in the central aspect of the right upper lobe measuring 1.4 cm x 1.5 cm and a 1 cm precarinal lymph node. The previously treated right upper-lobe subpleural nodule was stable (1.3 cm). A PET-CT (independently visualized in [facility]) completed on September 23 identified possible disease progression with extensive bilateral FDG-active pulmonary nodules and mediastinal lymphadenopathy. On review of systems, she denied any new pulmonary complaints. A physical exam was deferred. In summary, Ms. Cassidy returned for a routine post radiotherapy follow-up. Recent PET scan identified disease progression. I will request a biopsy of a possible metastatic lesion and order next generation sequencing prior to obtaining a medical oncology consultation. Signed by: Dr. Lionel Paul 09/30/2021 9:36:13 AM
== END 2021-09-30 09:01 | disposition home or self-care (01) ==
LOC: ONCMED 09:02
PROVIDERS: PCP Internal Medicine; Visit Provider Radiology Radiation Oncology
DX: C34.11 Malignant neoplasm of upper lobe, right bronchus or lung (principal); C78.02 Secondary malignant neoplasm of left lung; Z79.899 Other long term (current) drug therapy; G89.29 Other chronic pain; M54.50 Low back pain, unspecified; Z79.891 Long term (current) use of opiate analgesic
CPT/HCPCS: 99213; 99215

== ENCOUNTER → 2021-10-11 07:29 | Outpatient (BNVA) | payer MEDICARE, MEDICAID, SELFPAY | PROVIDERS: PCP Internal Medicine; Visit Provider Nurse Practitioner Psychiatric/Mental Health | DX: F25.1 Schizoaffective disorder, depressive type (principal); F41.1 Generalized anxiety disorder; F42.3 Hoarding disorder; Z63.79 Other stressful life events affecting family and household | CPT/HCPCS: 99214 ==

== ENCOUNTER 2021-11-09 07:20 | Day surgery (SDC) | payer MEDICARE, MEDICAID, SELFPAY ==
[2021-10-18 08:56] VITALS: BMI 24.5
[2021-11-09] VITALS (9 sets, daily range): BP systolic 141–208; BP diastolic 78–100; PULSE 80–99; RESP 20–24; TEMP 36.1; O2SAT 95–100
[2021-11-09] MEDS: sodium chloride 0.9% 1,000 ML 30 ML IV (08:45)
--- NOTE | 2021-11-09 08:49 | CT_ITS ---
WS: [id number] CT-GUIDED BIOPSY RIGHT LUNG BIOPSY. HISTORY: malignant neoplasm of upper lobe, right bronchus or lung, history of lung cancer. FLUOROSCOPIC TIME: 2.0 minutes. DLP: 554.[address] scans at [facility] use at least one of these dose optimization techniques: automated e xposure control; mA and/or kV adjustment per patient size (includes targeted exams where dose is matc hed to clinical indication); or iterative reconstruction. Prior imaging studies are reviewed. History and physical are reviewed. Procedure, risks and complicat ions were explained to the patient and family. Consent is obtained. With the patient in an WAYNE position the nodule in the posterior RIGHT upper lobe is targeted for biop sy. Skin is cleansed with ChloraPrep and anesthetized with 1% buffered lidocaine. 20-gauge coaxial ne edle is inserted into the mass. 3 core biopsies are performed without difficulty. Specimen is placed in formalin. No pneumothorax. Patient will be observed [address]/CT biopsy lung [id number] IMPRESSION: 1. Uncomplicated biopsy wedge-shaped nodule subpleural RIGHT upper lobe. Uncom plicated CT-guided biopsy. Specimen is placed in formalin and sent to pathology . 2. No pneumothorax post procedure.
[2021-11-09 08:54] LABS: INR 0.97 (0.8-1.2)
[2021-11-09] MEDS: midazolam 1 mg/mL INJ 2 mL IVP (09:38)
[2021-11-09] MEDS: fentaNYL 50 mcg/mL INJ 2mL 25 MCG IVP (09:38)
--- NOTE | 2021-11-09 12:00 | XR_ITS ---
WS: [email or web address] PORTABLE CHEST HISTORY: POST CT LUNG BIOPSY COMPARISON: 08/10/2021 Status post RIGHT lung biopsy earlier today. Hyperinflated lungs. No pneumothorax identified. Mild interstitial thickening bilaterally. No pleural effusion or pneumothorax. Cardiac size: Normal. Mediastinum/Aorta: Mild atherosclerosis aorta. No osseous abnormality seen. XR/XR chest 1V portable [id number] IMPRESSION: 1. No right-sided pneumothorax status post lung biopsy. 2. Chronic emphysema.
== END 2021-11-09 12:15 | disposition home or self-care (01) ==
PROVIDERS: Radiology Diagnostic Radiology; PCP Internal Medicine; Visit Provider Radiology Radiation Oncology
DX: C34.11 Malignant neoplasm of upper lobe, right bronchus or lung (principal)
CPT/HCPCS: 32408; 71045; 77012; 85610; 88307; 96361; 96374; 96375; J2250; J3010; J7030

== ENCOUNTER → 2021-11-23 07:35 | Outpatient (BNVA) | payer MEDICARE, MEDICAID, SELFPAY | PROVIDERS: PCP Internal Medicine; Visit Provider Nurse Practitioner Psychiatric/Mental Health | DX: F25.1 Schizoaffective disorder, depressive type (principal); F41.1 Generalized anxiety disorder; Z63.79 Other stressful life events affecting family and household; F42.3 Hoarding disorder | CPT/HCPCS: 99214 ==

== ENCOUNTER → 2021-11-24 08:08 | Outpatient (BNVA) | payer MEDICARE, MEDICAID, SELFPAY | PROVIDERS: PCP Internal Medicine; Visit Provider Specialist | DX: G43.711 Chronic migraine without aura, intractable, with status migrainosus (principal); Z87.891 Personal history of nicotine dependence | CPT/HCPCS: 64615; J0585 ==

== ENCOUNTER → 2021-11-29 14:06 | Outpatient (BNVA) | payer MEDICARE, MEDICAID, SELFPAY | PROVIDERS: PCP Internal Medicine; Visit Provider Anesthesiology | DX: G89.29 Other chronic pain (principal); M54.6 Pain in thoracic spine; M54.42 Lumbago with sciatica, left side; Z79.891 Long term (current) use of opiate analgesic | CPT/HCPCS: 99213 ==

== ENCOUNTER → 2021-12-21 09:46 | Outpatient (BNVA) | payer MEDICARE, MEDICAID, SELFPAY | PROVIDERS: PCP Internal Medicine; Visit Provider Anesthesiology | DX: G89.29 Other chronic pain (principal); M54.42 Lumbago with sciatica, left side; M54.6 Pain in thoracic spine; Z79.891 Long term (current) use of opiate analgesic | CPT/HCPCS: 99213 ==

== ENCOUNTER → 2022-01-04 07:13 | Outpatient (BNVA) | payer MEDICARE, MEDICAID, SELFPAY | PROVIDERS: PCP Internal Medicine; Visit Provider Nurse Practitioner Psychiatric/Mental Health | DX: F25.1 Schizoaffective disorder, depressive type (principal); F41.1 Generalized anxiety disorder; F42.3 Hoarding disorder; Z63.79 Other stressful life events affecting family and household | CPT/HCPCS: 99214 ==

== ENCOUNTER 2022-01-18 10:16 | Outpatient (CLI) | payer MEDICARE, MEDICAID, SELFPAY ==
--- NOTE | 2022-01-18 10:29 | CT_ITS ---
WS: [id number] CT CHEST WITH INTRAVENOUS CONTRAST HISTORY: LUNG CANCER TECHNIQUE: Contiguous 5 mm axial imaging performed on the thorax. Coronal and sagittal reformats are submitted. All CT scans at [facility] use at least one of these dose optimization techniques: automated exposure control; mA and/or kV adjustment per patient size (includes targeted exams where dose is matched to clinical indication); or iterative reconstruction. CONTRAST: Omnipaque 300; 95 mL IV. DLP: 513.77 mGy.cm COMPARISON: 08/30/2021, 05/30/2021 Lungs and central airway: Hyperinflated lungs with changes of emphysema. Interstitial thickening and nodules in the RIGHT upper lobe is reidentified. There is continued decrease in size of the spiculate d nodule at the RIGHT apex. Nodule may now measures 8 x 6 mm. This compares to 14 x 10 mm on the prio r examination of 08/30/2021. There is no increase in size. There are additional subpleural nodules an d thickening which are smaller and stable along the posterior pleura. This is in the area of a treate d neoplasm. The interstitial thickening in the RIGHT upper lobe is probably posttreatment radiation. No new mass or enlarging mass. There are a few small scattered 2 to 3 mm nodules bilaterally which ar e probably postinflammatory and stable. Pleura: No effusion. Heart and pericardium: Normal size heart. Mediastinum and jose carlos: Indeterminate but stable precarinal lymph node at 10 mm. RIGHT hilar lymph node measures 8 mm. No new or increasing lymphadenopathy. Vessels: Atherosclerosis aorta. Normal size pulmonary artery. Chest wall and lower neck: No soft tissue masses. Upper abdomen: Prior cholecystectomy. RIGHT hepatic lesion measuring 18 x 13 mm slightly lobulated wi th long-term stability. Noted to be a benign hemangioma on 03/14/2012. Mild thickening of the LEFT adr enal limb. No adrenal mass. Small hiatal hernia. Osseous structures: Increase in the thoracic kyphosis. No metastatic disease. CT/CT chest w con* [id number] IMPRESSION: 1. Continued decrease in size of the RIGHT upper lobe pulmonary nodule now ashlie suring 8 x 6 mm as compared to 14 x 10 mm on the prior study. Additional subple ural scarring and nodularity in the posterior RIGHT upper lobe is also stable. At this time there is no enlarging nodule to biopsy. Recommend continued close follow-up by CT. 2. Indeterminate but no change in the precarinal and RIGHT hilar lymph nodes. 3. Chronic emphysema. 4. Hepatic hemangioma. 5. Prior cholecystectomy.
[2022-01-18 11:31] LABS: Blood Urea Nitrogen 8 mg/dL (8-23)
[2022-01-18] MEDS: iohexol 350 mg/mL 100 mL Btl IV (11:53)
== END 2022-01-18 10:17 | disposition home or self-care (01) ==
PROVIDERS: PCP Internal Medicine; Visit Provider Radiology Radiation Oncology
DX: C34.11 Malignant neoplasm of upper lobe, right bronchus or lung (principal); J43.9 Emphysema, unspecified; D18.09 Hemangioma of other sites; Z90.49 Acquired absence of other specified parts of digestive tract
CPT/HCPCS: 71260; 82565; 84520

== ENCOUNTER 2022-01-20 08:56 | Outpatient (CLI) | payer MEDICARE, MEDICAID, SELFPAY ==
--- NOTE | 2022-01-20 09:34 | ONCRAD EPV_ITS ---
Radiation Oncology Follow-Up Note Patient Name: Kalyani Cassidy Date of : 1950 Date of Service: 01/20/2022 Attending Physician: Lionel Paul M.D. Kalyani Cassidy returned to my office this morning for a routinely scheduled follow-up appointment. 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 SABR was delivered between the dates of February 07, 2021 through February 11, 2021. A prescribed dose of 54 Gy was delivered in three fractions encompassing [address] ordered on May 30 demonstrated a significant response. The right upper-lobe subpleural nodule now measures 1.4 cm (initially 2 cm). Surveillance imaging performed on August 30, 2021 described a new nodule in the central aspect of the right upper lobe measuring 1.4 cm x 1.5 cm and a 1 cm precarinal lymph node. The previously treated right upper-lobe subpleural nodule was stable (1.3 cm). A PET-CT completed on September 23 identified possible disease progression with extensive bilateral FDG-active pulmonary nodules and mediastinal lymphadenopathy. A biopsy did not identify malignancy. A thoracic CT scan (independently visualized in [facility]) ordered on January 18 demonstrated continued regression of the right upper-lobe nodule. There were no other significant changes. On review of systems, she denied any new pulmonary complaints. On physical examination, she weighed 123 lbs. The temperature was 97.8 ???F and the blood pressure was 140/70 mmHg. The pulse was 82 bpm and her respiratory rate was 18 breaths per minute. Oxygen saturation while breathing room air was 98 %. Bilateral decreased breath sounds were auscultated. In summary, Ms. Cassidy returned for a routine post radiotherapy follow-up. Recent CT scan identified continued response to SABR. She will return in [address] imaging according to NCCN Guidelines. Signed by: Dr. Lionel Paul 01/20/2022 9:36:54 AM
== END 2022-01-20 08:57 | disposition home or self-care (01) ==
PROVIDERS: PCP Internal Medicine; Visit Provider Radiology Radiation Oncology
DX: C34.11 Malignant neoplasm of upper lobe, right bronchus or lung (principal); Z92.3 Personal history of irradiation
CPT/HCPCS: 99215

== ENCOUNTER → 2022-02-15 07:59 | Outpatient (BNVA) | payer MEDICARE, MEDICAID, SELFPAY | PROVIDERS: PCP Internal Medicine; Visit Provider Nurse Practitioner Psychiatric/Mental Health | DX: F25.1 Schizoaffective disorder, depressive type (principal); F41.1 Generalized anxiety disorder; F42.3 Hoarding disorder; Z63.79 Other stressful life events affecting family and household | CPT/HCPCS: 99214 ==

== ENCOUNTER → 2022-02-16 08:14 | Outpatient (BNVA) | payer MEDICARE, MEDICAID, SELFPAY | PROVIDERS: PCP Internal Medicine; Visit Provider Specialist | DX: G43.711 Chronic migraine without aura, intractable, with status migrainosus (principal) | CPT/HCPCS: 64615; J0585 ==

== ENCOUNTER → 2022-02-20 08:10 | Outpatient (BNVA) | payer MEDICARE, MEDICAID, SELFPAY | PROVIDERS: PCP Internal Medicine; Referring Provider Internal Medicine; Visit Provider Podiatrist Foot & Ankle Surgery | DX: L60.3 Nail dystrophy (principal); R09.89 Other specified symptoms and signs involving the circulatory and respiratory systems; Z87.891 Personal history of nicotine dependence | CPT/HCPCS: 99203 ==

== ENCOUNTER → 2022-02-24 09:00 | Outpatient (BNVA) | payer MEDICARE, MEDICAID, SELFPAY | PROVIDERS: PCP Internal Medicine; Visit Provider Internal Medicine Critical Care Medicine | DX: J44.9 Chronic obstructive pulmonary disease, unspecified (principal); C34.90 Malignant neoplasm of unspecified part of unspecified bronchus or lung; J30.9 Allergic rhinitis, unspecified; Z87.891 Personal history of nicotine dependence | CPT/HCPCS: 99214 ==

== ENCOUNTER → 2022-04-04 08:05 | Outpatient (BNVA) | payer MEDICARE, MEDICAID, SELFPAY | PROVIDERS: PCP Internal Medicine; Visit Provider Nurse Practitioner Psychiatric/Mental Health | DX: F25.1 Schizoaffective disorder, depressive type (principal); F41.1 Generalized anxiety disorder; Z63.79 Other stressful life events affecting family and household; F42.3 Hoarding disorder | CPT/HCPCS: 99214 ==

== ENCOUNTER 2022-05-04 10:09 | Outpatient (CLI) | payer MEDICARE, MEDICAID, SELFPAY ==
--- NOTE | 2022-05-04 10:22 | CT_ITS ---
WS: [id number] CT CHEST WITHOUT INTRAVENOUS CONTRAST HISTORY: LUNG CANCER TECHNIQUE: Contiguous 5 mm axial imaging performed on the thorax. Coronal and sagittal reformats are submitted. All CT scans at [facility] use at least one of these dose optimization techniques: automated exposure control; mA and/or kV adjustment per patient size (includes targeted exams where dose is matched to clinical indication); or iterative reconstruction. CONTRAST: None DLP: 494.81 mGy.cm COMPARISON: 01/18/2022 08/30/2021 Lungs and central airway: Marked pulmonary hyperexpansion and emphysema. There has been a subtle franklin ge in the nodularity and pleural thickening within the RIGHT upper thorax. The pleural thickening and nodularity has progressed and is more solid than on the prior examinations. There has only been mini mal change in the appearance of the nodule at the RIGHT apex now measuring 11 x 9 mm although it does appear slightly more consolidated and LEFT subsolid. Adjacent interstitial thickening and stranding is probably post treatment changes or lymphangitic spread of tumor. No additional nodules. Pleura: No effusions. Heart and pericardium: No change in appearance of the heart. Mediastinum and jose carlos: No adenopathy or increase in size. Largest lymph node is 10 mm along the RIGHT inferior paratracheal location. Vessels: Moderate atherosclerosis aorta with no dilatation. Pulmonary artery size is equal to the aor ta. Chest wall and lower neck: No soft tissue masses. Upper abdomen: Prior cholecystectomy. Unenhanced visualized liver is negative. Mild stable thickening of the LEFT adrenal gland. Small hiatal hernia. Osseous structures: Mild increase in thoracic kyphosis. New nondisplaced fractures involving the RIGH T posterior fourth and fifth ribs. CT/CT chest wo con [id number] IMPRESSION: 1. Increasing pleural thickening and nodularity in the RIGHT upper lobe with i ncreased consolidation of the RIGHT upper lobe nodule since 01/18/2022. Recurrent neoplasm is not excluded and should be considered. The nodule has not signific antly increased in size. 2. New fractures within the posterior RIGHT fourth and fifth ribs. These may b e pathological fractures and related to postradiation. These fractures are clos fausto associated with the pleural thickening and may be responsible for some of t he new changes. Posttraumatic pleural thickening versus neoplastic should be co nsidered. 3. Chronic severe emphysema.
== END 2022-05-04 10:10 | disposition home or self-care (01) ==
LOC: RAD 10:12
PROVIDERS: PCP Internal Medicine; Visit Provider Radiology Radiation Oncology
DX: C34.11 Malignant neoplasm of upper lobe, right bronchus or lung (principal)
CPT/HCPCS: 71250

== ENCOUNTER 2022-05-05 08:24 | Outpatient (CLI) | payer MEDICARE, MEDICAID, SELFPAY ==
--- NOTE | 2022-05-05 08:37 | MM_ITS ---
WS: [email or web address] SCREENING DIGITAL BREAST TOMOSYNTHESIS MAMMOGRAM WITH CAD HISTORY: SCREEN COMPARISON: 12/08/2020, 08/26/2018 and 03/30/2017 Bilateral CC and MLO with tomosynthesis and synthetic mammography submitted. Computer aided detection analyzed. Breast composition: The breasts are heterogeneously dense, which may obscure small masses. There is a new hyperdense nodule upper outer quadrant LEFT breast at a middle depth measuring 7 x 8 mm. In a si milar area as an oil cyst on prior imaging studies. There is a new lobulated nodule in the anterior L EFT breast just medial to the nipple line and probably just above the nipple on the lateral projectio n. This lobulated nodule measures 9.8 mm and needs further evaluation. This nodule was not definitely present on prior studies. There are additional stable nodules within the LEFT breast. MM/[place] [id number] IMPRESSION: BI-RADS: 0-Incomplete: Need additional imaging evaluation FOLLOW UP: Need Additional Imaging LEFT breast: Spot compression views (CC and MLO). True ML. Ultrasound to follow if abnormality persists.
== END 2022-05-05 08:25 | disposition home or self-care (01) ==
LOC: RAD 08:25
PROVIDERS: PCP Internal Medicine; Visit Provider Physician Assistant
DX: Z12.31 Encounter for screening mammogram for malignant neoplasm of breast (principal)
CPT/HCPCS: 77063; 77067

== ENCOUNTER → 2022-05-11 07:45 | Outpatient (BNVA) | payer MEDICARE, MEDICAID, SELFPAY | PROVIDERS: PCP Internal Medicine; Visit Provider Specialist | DX: G43.711 Chronic migraine without aura, intractable, with status migrainosus (principal) | CPT/HCPCS: 64615; J0585 ==

== ENCOUNTER 2022-05-11 09:33 | Oncology outpatient (recurring) (ONCR) | payer MEDICARE, MEDICAID, SELFPAY ==
--- NOTE | 2022-05-11 09:59 | ONCRAD EPV_ITS ---
Radiation Oncology Follow-Up Note Patient Name: Kalyani Cassidy Date of : 1950 Date of Service: 05/11/2022 Attending Physician: Lionel Paul M.D. Kalyani Cassidy returned to my office this morning for a routinely scheduled follow-up appointment. 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 SABR was delivered between the dates of February 07, 2021 through February 11, 2021. A prescribed dose of 54 Gy was delivered in three fractions encompassing [address] ordered on May 30 demonstrated a significant response. The right upper-lobe subpleural nodule now measures 1.4 cm (initially 2 cm). Surveillance imaging performed on August 30, 2021 described a new nodule in the central aspect of the right upper lobe measuring 1.4 cm x 1.5 cm and a 1 cm precarinal lymph node. The previously treated right upper-lobe subpleural nodule was stable (1.3 cm). A PET-CT completed on September 23, 2021 identified possible disease progression with extensive bilateral FDG-active pulmonary nodules and mediastinal lymphadenopathy. A biopsy did not identify malignancy. A thoracic CT scan ordered on January 18 demonstrated continued regression of the right upper-lobe nodule. There were no other significant changes. A recent CT obtained on May 04, 2022 (independently reviewed in [facility]) described minimal change in the right upper-lobe nodule nor any increase in adenopathy. New non-displaced fractures of the right fourth and fifth ribs were reported. On review of systems, she denied rib pain nor any changes in her pulmonary function. On physical examination, she weighed 124 lbs. The temperature was 98.7 ???F and the blood pressure was 144/72 mmHg. The pulse was 72 bpm and her respiratory rate was 16 breaths per minute. Oxygen saturation while breathing room air was 96 %. Bilateral decreased breath sounds were auscultated. In summary, Ms. Cassidy returned for a routine post radiotherapy follow-up. Recent CT scan identified stable disease. She will return in [address] imaging according to NCCN Guidelines. Signed by: Dr. Lionel Paul 05/11/2022 9:59:41 AM
== END 2022-05-18 23:59 | disposition home or self-care (01) ==
PROVIDERS: PCP Internal Medicine; Visit Provider Radiology Radiation Oncology
DX: C34.11 Malignant neoplasm of upper lobe, right bronchus or lung (principal)

== ENCOUNTER → 2022-05-16 07:56 | Outpatient (BNVA) | payer MEDICARE, MEDICAID, SELFPAY | PROVIDERS: PCP Internal Medicine; Visit Provider Nurse Practitioner Psychiatric/Mental Health | DX: F25.1 Schizoaffective disorder, depressive type (principal); F41.1 Generalized anxiety disorder; F42.3 Hoarding disorder; Z63.79 Other stressful life events affecting family and household | CPT/HCPCS: 99214 ==

== ENCOUNTER → 2022-05-25 07:47 | Outpatient (BNVA) | payer MEDICARE, MEDICAID, SELFPAY | PROVIDERS: PCP Internal Medicine; Visit Provider Podiatrist Foot & Ankle Surgery | DX: L60.0 Ingrowing nail (principal); L60.3 Nail dystrophy; M79.671 Pain in right foot; R09.89 Other specified symptoms and signs involving the circulatory and respiratory systems | CPT/HCPCS: 99213 ==

== ENCOUNTER 2022-05-31 13:00 | Outpatient (CLI) | payer MEDICARE, MEDICAID, SELFPAY ==
--- NOTE | 2022-05-31 13:14 | XR_ITS ---
WS: [email or web address] Lumbar spine, AP view, lateral view, L5-S1 spot, both obliques, 05/31/2022 Clinical Data: LUMBOSACRAL SPONDYLOSIS W/RADICULOPATHY/DDD LUMBAR Comparison: Lumbar spine, 11/13/2014. Findings: No compression fractures or subluxation is seen. There is degenerative disc narrowing at L4-L5. There are minimal anterior osteophytes from L1 through L5. The transverse processes and SI joints are norm al. The oblique films show no spondylolysis. There are clips in the right upper quadrant from a cholecyst ectomy. XR/XR lumbar spine min 4V [id number] Impression: 1. Degenerative disc narrowing at L4-L5. 2. Minimal anterior osteophytes L-1-L5. 3. Negative for spondylolysis.
== END 2022-05-31 13:01 | disposition home or self-care (01) ==
LOC: RAD 13:01
PROVIDERS: PCP Internal Medicine; Visit Provider General Practice
DX: M47.27 Other spondylosis with radiculopathy, lumbosacral region (principal); M51.36 Other intervertebral disc degeneration, lumbar region
CPT/HCPCS: 72110

== ENCOUNTER 2022-05-31 13:00 | Outpatient (CLI) | payer MEDICARE, MEDICAID, SELFPAY ==
--- NOTE | 2022-05-31 | US_ITS ---
ADDITIONAL VIEWS LEFT MAMMOGRAM with tomosynthesis. LEFT BREAST ULTRASOUND HISTORY: INCONCLUSIVE MAMMO COMPARISON: 08/26/2018, 12/10/2020 and 05/05/2022 LEFT MAMMOGRAM: Spot compression views and true ML with tomosynthesis and sympathetic mammography. Patient has numerous masses within the LEFT breast. Most of these have been present on prior studies. The hyperdense mass at 2:00 in the posterior depth persistent 6 mm. The additional mass measuring 9 mm in the anterior breast persists near 6:00. Both of these areas will be evaluated by ultrasound. LEFT BREAST ULTRASOUND 2-D and color Doppler imaging submitted. Well-circumscribed mass at 2:00, 2 cm from the nipple in the LEFT breast measures 7 x 6 x 5 mm. No through-transmission. There is posterior shadowing. This corresponds to the mass noted to be an oil cyst on the prior studies. I favor this is probably a benign with increased protein content now making this look dense on mammogram. There are additional cysts within the LEFT breast. The new mass noted by mammography at 7:00 corresponds to a cyst measuring 10 x 11 x 3 mm. No solid mass. IMPRESSION: BI-RADS: 3-Probably Benign FOLLOW UP: 6 Month Follow-up Recommend ultrasound follow-up of the solid nodule in the LEFT breast at 2:00, 2 cm from the nipple. Favor this is probably benign and may be related to an oil cyst described in this location on prior mammograms. ELVID
--- NOTE | 2022-05-31 13:10 | MM_ITS ---
WS: [email or web address] ADDITIONAL VIEWS LEFT MAMMOGRAM with tomosynthesis. LEFT BREAST ULTRASOUND HISTORY: INCONCLUSIVE MAMMO COMPARISON: 08/26/2018, 12/10/2020 and 05/05/2022 LEFT MAMMOGRAM: Spot compression views and true ML with tomosynthesis and sympathetic mammography. Patient has numerous masses within the LEFT breast. Most of these have been present on prior studies. The hyperdense mass at 2:00 in the posterior depth persistent 6 mm. The additional mass measuring 9 mm in the anterior breast persists near 6:00. Both of these areas will be evaluated by ultrasound. LEFT BREAST ULTRASOUND 2-D and color Doppler imaging submitted. Well-circumscribed mass at 2:00, 2 cm from the nipple in the LEFT breast measures 7 x 6 x 5 mm. No th rough-transmission. There is posterior shadowing. This corresponds to the mass noted to be an oil cys t on the prior studies. I favor this is probably a benign with increased protein content now making t his look dense on mammogram. There are additional cysts within the LEFT breast. The new mass noted by mammography at 7:00 corresponds to a cyst measuring 10 x 11 x 3 mm. No solid mass. MM/[place] [id number] IMPRESSION: BI-RADS: 3-Probably Benign FOLLOW UP: 6 Month Follow-up Recommend ultrasound follow-up of the solid nodule in the LEFT breast at 2:00, 2 cm from the nipple. Favor this is probably benign and may be related to an oi l cyst described in this location on prior mammograms.
== END 2022-05-31 13:01 | disposition home or self-care (01) ==
LOC: RAD 13:01
PROVIDERS: PCP Internal Medicine; Visit Provider Internal Medicine
DX: R92.2 Inconclusive mammogram (principal)
CPT/HCPCS: 76642; 77061

== ENCOUNTER → 2022-08-01 11:09 | Outpatient (BNVA) | payer MEDICARE, MEDICAID, SELFPAY | PROVIDERS: PCP Internal Medicine; Visit Provider Internal Medicine Cardiovascular Disease | DX: I25.10 Atherosclerotic heart disease of native coronary artery without angina pectoris (principal); I10 Essential (primary) hypertension; J44.9 Chronic obstructive pulmonary disease, unspecified; C34.90 Malignant neoplasm of unspecified part of unspecified bronchus or lung; Z63.79 Other stressful life events affecting family and household; I25.2 Old myocardial infarction; G43.711 Chronic migraine without aura, intractable, with status migrainosus; Z87.891 Personal history of nicotine dependence; Z86.73 Personal history of transient ischemic attack (TIA), and cerebral infarction without residual deficits | CPT/HCPCS: 99213; 99214 ==

== ENCOUNTER → 2022-08-03 07:44 | Outpatient (BNVA) | payer MEDICARE, MEDICAID, SELFPAY | PROVIDERS: PCP Internal Medicine; Visit Provider Specialist | DX: G43.711 Chronic migraine without aura, intractable, with status migrainosus (principal) | CPT/HCPCS: 64615; J0585 ==

== ENCOUNTER 2022-08-09 06:40 | Outpatient (CLI) | payer MEDICARE, MEDICAID, SELFPAY ==
--- NOTE | 2022-08-09 | US_ITS ---
WS: [email or web address] TRANSVAGINAL PELVIC ULTRASOUND HISTORY: PELVIC PAIN COMPARISON: None available. Uterus: 4.5 cm x 3.3 cm x 1.9 cm. Small caliber anteverted uterus. Hypoechoic mass is consistent with a fibroid in the LEFT lateral uterus measures 1.1 x 0.8 x 0.9 cm. Endometrium: 0.3 cm. Very thin endometrium. No mass. Neither ovary is identified within the adnexa. No solid or cystic masses. Trace free fluid in the cul -de-sac. US/US transvaginal [id number] IMPRESSION: 1. Atrophic uterus as expected with a 1.1 cm LEFT uterine fibroid. 2. Thin atrophic endometrium. 3. Neither ovary identified.
== END 2022-08-09 06:41 | disposition home or self-care (01) ==
LOC: RAD 06:41
PROVIDERS: PCP Internal Medicine; Visit Provider Internal Medicine
DX: R10.2 Pelvic and perineal pain (principal); N85.8 Other specified noninflammatory disorders of uterus
CPT/HCPCS: 76830

== ENCOUNTER → 2022-08-24 08:06 | Outpatient (BNVA) | payer MEDICARE, MEDICAID, SELFPAY | PROVIDERS: PCP Internal Medicine; Visit Provider Podiatrist Foot & Ankle Surgery | DX: L60.0 Ingrowing nail (principal); L60.3 Nail dystrophy; R09.89 Other specified symptoms and signs involving the circulatory and respiratory systems | CPT/HCPCS: 99214 ==

== ENCOUNTER → 2022-08-25 09:02 | Outpatient (BNVA) | payer MEDICARE, MEDICAID, SELFPAY | PROVIDERS: PCP Internal Medicine; Visit Provider Internal Medicine Critical Care Medicine | DX: J44.9 Chronic obstructive pulmonary disease, unspecified (principal); C34.90 Malignant neoplasm of unspecified part of unspecified bronchus or lung; J30.9 Allergic rhinitis, unspecified; Z87.891 Personal history of nicotine dependence; Z92.3 Personal history of irradiation | CPT/HCPCS: 99214 ==

== ENCOUNTER → 2022-09-06 13:45 | Outpatient (BNVA) | payer MEDICARE, MEDICAID, SELFPAY | PROVIDERS: PCP Internal Medicine; Visit Provider Internal Medicine Cardiovascular Disease | DX: I10 Essential (primary) hypertension (principal); I25.10 Atherosclerotic heart disease of native coronary artery without angina pectoris; I25.2 Old myocardial infarction | CPT/HCPCS: 99214 ==

== ENCOUNTER 2022-09-29 08:36 | Oncology outpatient (recurring) (ONCR) | payer MEDICARE, MEDICAID, SELFPAY ==
--- NOTE | 2022-09-21 11:00 | CT_ITS ---
WS: [email or web address] CT scan of the chest with IV contrast, additional two-dimensional coronal and sagittal reconstruction was performed. 09/21/2022 Clinical Data: Surveillance post-SABR Comparison: CT chest, 05/04/2022 DLP: 591.[address] scans at [facility] use at least one of these dose optimization techniques: automated e xposure control; mA and/or kV adjustment per patient size (includes targeted exams where dose is matc hed to clinical indication); or iterative reconstruction. Findings: The pleural thickening in the posterior lateral aspect of the right upper lobe has increased in [facility] and has incorporated the nodules that were present on the previous study. No new pulmonary nodu les are seen. There are no effusions or large masses. The left lung shows no change from before. The heart size is normal with no pericardial effusion. There is an artificial cardiac valve. The pulmonar y arterial system and thoracic aorta demonstrate no abnormalities or dilatations. There is no axillar y or significant mediastinal adenopathy. The right posterior lateral fourth and fifth rib fractures r emain the same. The thoracic vertebral bodies demonstrate no bony metastases. The upper abdomen demonstrates no change from before. There are regions in the right lobe of the live r which are probably hemangiomas, and no definite metastatic lesions are seen. The gallbladder is abs ent. The pancreas, adrenal glands and spleen and superior poles of the kidneys show no change. CT/CT chest w con* [id number] Impression: 1. Increasing right upper lobe posterior lateral pleural thickening which may b e the result of fibrosis from recent therapy. 2. No new pulmonary nodules are seen. 2. Negative for bony metastatic lesions or definite liver metastases.
[2022-09-21] MEDS: iohexol 350 mg/mL 100 mL Btl IV (11:23)
[2022-09-22 08:07] LABS: Blood Urea Nitrogen 12 mg/dL (8-23)
--- NOTE | 2022-09-29 09:22 | ONCRAD EPV_ITS ---
Radiation Oncology Follow-Up Note Patient Name: Kalyani Cassidy Date of : 1950 Date of Service: 09/29/2022 Attending Physician: Lionel Paul M.D. Kalyani Cassidy returned to my office this morning for a routinely scheduled follow-up appointment. 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 SABR was delivered between the dates of February 07, 2021 through February 11, 2021. A prescribed dose of 54 Gy was delivered in three fractions encompassing [address] ordered on May 30, 2021 demonstrated a significant response. The right upper-lobe subpleural nodule now measures 1.4 cm (initially 2 cm). Surveillance imaging performed on August 30, 2021 described a new nodule in the central aspect of the right upper lobe measuring 1.4 cm x 1.5 cm and a 1 cm precarinal lymph node. The previously treated right upper-lobe subpleural nodule was stable (1.3 cm). A PET-CT completed on September 23, 2021 identified possible disease progression with extensive bilateral FDG-active pulmonary nodules and mediastinal lymphadenopathy. A biopsy did not identify malignancy. A thoracic CT scan ordered on January 18, 2022 demonstrated continued regression of the right upper-lobe nodule. There were no other significant changes. A recent CT obtained on May 04, 2022 described minimal change in the right upper-lobe nodule nor any increase in adenopathy. New non-displaced fractures of the right fourth and fifth ribs were reported. A repeat thoracic CT scan ordered on September 22, 2022 reported right upper-lobe pleural thickening probably related to treatment effects. On review of systems, she denied any changes in her pulmonary function. On physical examination, she weighed 133 lbs. The temperature was 96 ???F and the blood pressure was 140/75 mmHg. The pulse was 75 bpm and her respiratory rate was 18 breaths per minute. Oxygen saturation while breathing room air was 97 %. Bilateral bronchial breath sounds were auscultated. In summary, Ms. Cassidy returned for a routine post radiotherapy follow-up. A recent CT scan identified no evidence of disease. She will return in [address] imaging according to NCCN Guidelines. Signed by: Dr. Lionel Paul 09/29/2022 9:21:19 AM
== END 2022-10-18 23:59 | disposition home or self-care (01) ==
PROVIDERS: PCP Internal Medicine; Visit Provider Radiology Radiation Oncology
DX: Z08 Encounter for follow-up examination after completed treatment for malignant neoplasm (principal); Z85.118 Personal history of other malignant neoplasm of bronchus and lung; Z92.3 Personal history of irradiation; Z87.891 Personal history of nicotine dependence
CPT/HCPCS: 71260; 82565; 84520; 99213

== ENCOUNTER → 2022-10-26 07:28 | Outpatient (BNVA) | payer MEDICARE, MEDICAID, SELFPAY | PROVIDERS: PCP Internal Medicine; Visit Provider Specialist | DX: G43.711 Chronic migraine without aura, intractable, with status migrainosus (principal) | CPT/HCPCS: 64615; 95911; J0585 ==

== ENCOUNTER → 2023-01-11 08:41 | Outpatient (BNVA) | payer MEDICARE, MEDICAID, SELFPAY | PROVIDERS: PCP Internal Medicine; Visit Provider Podiatrist Foot & Ankle Surgery | DX: L60.8 Other nail disorders (principal); L60.0 Ingrowing nail; L60.3 Nail dystrophy; R09.89 Other specified symptoms and signs involving the circulatory and respiratory systems | CPT/HCPCS: 11721 ==

== ENCOUNTER → 2023-01-18 07:49 | Outpatient (BNVA) | payer MEDICARE, MEDICAID, SELFPAY | PROVIDERS: PCP Internal Medicine; Visit Provider Specialist | DX: G43.711 Chronic migraine without aura, intractable, with status migrainosus (principal) | CPT/HCPCS: 64615; J0585 ==

== ENCOUNTER → 2023-02-23 09:24 | Outpatient (BNVA) | payer MEDICARE, MEDICAID, SELFPAY | PROVIDERS: PCP Internal Medicine; Visit Provider Internal Medicine Pulmonary Disease | DX: J44.9 Chronic obstructive pulmonary disease, unspecified (principal); C34.90 Malignant neoplasm of unspecified part of unspecified bronchus or lung; J30.9 Allergic rhinitis, unspecified; Z87.891 Personal history of nicotine dependence | CPT/HCPCS: 99214 ==

== ENCOUNTER → 2023-03-13 09:39 | Outpatient (BNVA) | payer MEDICARE, MEDICAID, SELFPAY | PROVIDERS: PCP Internal Medicine; Visit Provider Specialist | DX: I25.10 Atherosclerotic heart disease of native coronary artery without angina pectoris (principal); I10 Essential (primary) hypertension; Z87.891 Personal history of nicotine dependence | CPT/HCPCS: 99213 ==

== ENCOUNTER 2023-03-19 12:13 | Outpatient (CLI) | payer MEDICARE, MEDICAID, SELFPAY ==
--- NOTE | 2023-03-19 12:35 | CT_ITS ---
WS: [id number] CT scan of the chest without IV contrast, additional two-dimensional coronal and sagittal reconstruct ion was performed. 03/19/2023 Clinical Data: Surveillance after SABR Comparison: CT chest, 09/21/2022 DLP: 177.[address] scans at [facility] use at least one of these dose optimization techniques: automated e xposure control; mA and/or kV adjustment per patient size (includes targeted exams where dose is matc hed to clinical indication); or iterative reconstruction. Findings: No new nodules, masses or effusions are seen. The pleural thickening of the posterior lateral aspect of the right upper thorax remains the same. There is volume loss of the right upper lobe with shift o f the heart and mediastinum from left to right. The heart size is normal with no pericardial effusion . There is an artificial cardiac valve unchanged. The pulmonary arterial system and thoracic aorta de monstrate no abnormalities or dilatations. There are calcifications in the wall of the thoracic aorta . There are lymph node calcifications especially in the subcarinal region. There is no axillary or ch vidya in mediastinal adenopathy. The posterior lateral right fourth and fifth rib fractures have not c hanged. The thoracic vertebral bodies and ribs show no metastatic lesions. The upper abdomen shows no change. The gallbladder is absent. No liver metastatic lesions are seen. T he spleen, adrenal glands, upper poles of the kidneys and pancreas are unremarkable. CT/CT chest wo con [id number] Impression: 1. No change in right upper lobe posterior lateral pleural thickening. 2. Negative for pulmonary nodules. 3. Negative for bony metastatic lesions or liver lesions.
== END 2023-03-19 12:14 | disposition home or self-care (01) ==
LOC: RAD 12:18
PROVIDERS: PCP Internal Medicine; Visit Provider Radiology Radiation Oncology
DX: C34.90 Malignant neoplasm of unspecified part of unspecified bronchus or lung (principal)
CPT/HCPCS: 71250

== ENCOUNTER 2023-03-23 09:40 | Oncology outpatient (recurring) (ONCR) | payer MEDICARE, MEDICAID, SELFPAY ==
--- NOTE | 2023-03-23 10:34 | ONCRAD EPV_ITS ---
Radiation Oncology Follow-Up Note Patient Name: Kalyani Cassidy Date of : 1950 Date of Service: 03/23/2023 Attending Physician: Lionel Paul M.D. Kalyani Cassidy returned to my office this morning for a routinely scheduled follow-up appointment. 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 SABR was delivered between the dates of February 07, 2021 through February 11, 2021. A prescribed dose of 54 Gy was delivered in three fractions encompassing [address] ordered on May 30, 2021 demonstrated a significant response. The right upper-lobe subpleural nodule now measures 1.4 cm (initially 2 cm). Surveillance imaging performed on August 30, 2021 described a new nodule in the central aspect of the right upper-lobe measuring 1.4 cm x 1.5 cm and a 1 cm precarinal lymph node. The previously treated right upper-lobe subpleural nodule was stable (1.3 cm). A PET-CT scan completed on September 23, 2021 identified possible disease progression with extensive bilateral FDG-active pulmonary nodules and mediastinal lymphadenopathy. A biopsy did not identify malignancy. A thoracic CT scan ordered on January 18, 2022 demonstrated continued regression of the right upper-lobe nodule. There were no other significant changes. A CT obtained on May 04, 2022 described minimal change in the right upper-lobe nodule nor any increase in adenopathy. New non-displaced fractures of the right fourth and fifth ribs were reported. A repeat thoracic CT scan ordered on September 22, 2022 reported right upper-lobe pleural thickening probably related to treatment effects. A CT scan of the chest (independently reviewed in [facility]) requested on March 19, 2023 reported no change in the pleural thickening of the postero-lateral aspect of the right upper-lobe. No new pulmonary nodules were present. On review of systems, she denied any changes in her pulmonary function. On physical examination, she weighed 134 lbs. The temperature was 97.2 ???F and the blood pressure was 124/63 mmHg. The pulse was 68 bpm and her respiratory rate was 18 breaths per minute. Oxygen saturation while breathing room air was 99 %. In summary, Ms. Cassidy returned for a routine post radiotherapy follow-up. A recent CT scan identified no evidence of disease. She will return in [address] imaging according to NCCN Guidelines. Signed by: Lionel Paul 03/23/2023 10:33:54 AM
== END 2023-04-18 23:59 | disposition home or self-care (01) ==
PROVIDERS: PCP Internal Medicine; Visit Provider Radiology Radiation Oncology
DX: C34.11 Malignant neoplasm of upper lobe, right bronchus or lung (principal); C78.02 Secondary malignant neoplasm of left lung; C77.8 Secondary and unspecified malignant neoplasm of lymph nodes of multiple regions; S22.41XA Multiple fractures of ribs, right side, initial encounter for closed fracture; X58.XXXA Exposure to other specified factors, initial encounter; Z87.891 Personal history of nicotine dependence; Z92.3 Personal history of irradiation
CPT/HCPCS: 99213

== ENCOUNTER → 2023-04-12 07:57 | Outpatient (BNVA) | payer MEDICARE, MEDICAID, SELFPAY | PROVIDERS: PCP Internal Medicine; Visit Provider Specialist | DX: L60.3 Nail dystrophy (principal); M79.671 Pain in right foot; L60.8 Other nail disorders; R09.89 Other specified symptoms and signs involving the circulatory and respiratory systems; G43.711 Chronic migraine without aura, intractable, with status migrainosus | CPT/HCPCS: 11721; 64615; J0585 ==

== ENCOUNTER → 2023-07-05 12:23 | Outpatient (BNVA) | payer MEDICARE, MEDICAID, OTHER, SELFPAY | PROVIDERS: PCP Internal Medicine; Visit Provider Specialist | DX: G43.711 Chronic migraine without aura, intractable, with status migrainosus (principal) | CPT/HCPCS: 64615; J0585 ==

== ENCOUNTER → 2023-07-12 07:51 | Outpatient (BNVA) | payer MEDICARE, MEDICAID, SELFPAY | PROVIDERS: PCP Internal Medicine; Visit Provider Podiatrist Foot & Ankle Surgery | DX: L60.8 Other nail disorders (principal); L60.3 Nail dystrophy; R09.89 Other specified symptoms and signs involving the circulatory and respiratory systems; I73.9 Peripheral vascular disease, unspecified | CPT/HCPCS: 11721 ==

== ENCOUNTER → 2023-08-24 08:43 | Outpatient (BNVA) | payer MEDICARE, MEDICAID, SELFPAY | PROVIDERS: PCP Internal Medicine; Visit Provider Internal Medicine Pulmonary Disease | DX: J44.9 Chronic obstructive pulmonary disease, unspecified (principal); C34.11 Malignant neoplasm of upper lobe, right bronchus or lung; J30.9 Allergic rhinitis, unspecified; Z87.891 Personal history of nicotine dependence | CPT/HCPCS: 99214 ==

== ENCOUNTER 2023-09-04 14:16 | Outpatient (CLI) | payer MEDICARE, MEDICAID, SELFPAY ==
--- NOTE | 2023-09-04 14:22 | XR_ITS ---
WS: [id number] SCREENING DEXA SCAN [email or web address] CLINICAL INFORMATION: POSTMENOPAUSAL COMPARISON: None. FINDINGS: The L1-L4 bone mineral density measures 0.826 g/cm2. This corresponds to a T score score of -3.0 and Z score of -1.1. Left femoral neck bone mineral density measures 0.652 g/cm2. This corresponds to a T score of -2.8 an d Z score of -1.1. Right femoral neck bone mineral density measures 0.612 g/cm2. This corresponds to a T score -3.1of an d Z score of -1.4. Mean femoral neck bone mineral density measures 0.632 g/cm2. This corresponds to a T score of -3.0 an d Z score of -1.2. IMPRESSION: Osteoporosis lumbar spine. Osteoporosis femoral necks. Patient's FRAX calculated 10 year probability for major osteoporotic fracture is 35.6% and osteoporotic hip fracture is 18.4%.
== END 2023-09-04 14:17 | disposition home or self-care (01) ==
PROVIDERS: PCP Internal Medicine; Visit Provider Internal Medicine
DX: Z78.0 Asymptomatic menopausal state (principal); M81.0 Age-related osteoporosis without current pathological fracture
CPT/HCPCS: 77080

== ENCOUNTER → 2023-09-11 10:41 | Outpatient (BNVA) | payer MEDICARE, MEDICAID, SELFPAY | PROVIDERS: PCP Internal Medicine; Visit Provider Internal Medicine Cardiovascular Disease | DX: I10 Essential (primary) hypertension (principal); I25.10 Atherosclerotic heart disease of native coronary artery without angina pectoris; J44.9 Chronic obstructive pulmonary disease, unspecified; Z86.39 Personal history of other endocrine, nutritional and metabolic disease; G43.711 Chronic migraine without aura, intractable, with status migrainosus; Z87.891 Personal history of nicotine dependence | CPT/HCPCS: 99214 ==

== ENCOUNTER 2023-09-21 07:35 | Outpatient (CLI) | payer MEDICARE, MEDICAID, SELFPAY ==
--- NOTE | 2023-09-21 08:00 | CTR_ITS ---
PROCEDURE INFORMATION: Exam: CT Chest Without Contrast; Diagnostic Exam date and time: 09/21/2023 8:04 AM Age: 73 years old Clinical indication: Condition or disease; Lung condition and disease; Pulmonary nodule, solitary; Primary cancer: Lung cancer; Prior surgery; Surgery date: 6+ months; Surgery type: Heart, gb; Additional info: Surveillance for rul nodule post sabr TECHNIQUE: Imaging protocol: Diagnostic computed tomography of the chest without contrast. Radiation optimization: All CT scans at this facility use at least one of these dose optimization techniques: automated exposure control; mA and/or kV adjustment per patient size (includes targeted exams where dose is matched to clinical indication); or iterative reconstruction. REPORTING DATA: Count of CT and Cardiac NM exams in prior 12 months: This patient has received [address] and 0 known cardiac nuclear medicine studies in the 12 months prior to the current study. COMPARISON: CT chest wo con [id number] 03/19/2023 12:45 PM RADIATION DOSE METRICS: Total DLP (mGy-cm): 237.24 FINDINGS: Lungs: There are calcified granulomas in the right upper and left lower lobes of the lung. There is lung emphysema. There is pleural-based opacification along the posterior right upper lobe of the lung. Pleural spaces: Unremarkable. No pneumothorax. No pleural effusion. Heart: Unremarkable. No cardiomegaly. No pericardial effusion. Coronary arteries: There is coronary artery calcification. Mediastinal space: The subcarinal mediastinal calcification. Lymph nodes: Unremarkable. No enlarged lymph nodes. Vasculature: Unremarkable. No aortic aneurysm. Adrenal glands: There is thickening of the left adrenal gland as before. Bones/joints: There have been thoracotomies of the right posterior 3rd, 4th and 5th ribs. Degenerative change is identified in the spine. Soft tissues: Unremarkable. CT/CT chest wo con [id number] IMPRESSION: There are no acute concerning abnormalities. COMMENTS: In the absence of a history or active diagnosis of lung cancer, it is recommended that this patient with emphysema be evaluated for enrollment in a low dose CT lung cancer screening program.
== END 2023-09-21 07:36 | disposition home or self-care (01) ==
LOC: RAD 07:35
PROVIDERS: PCP Internal Medicine; Visit Provider Radiology Radiation Oncology
DX: C34.90 Malignant neoplasm of unspecified part of unspecified bronchus or lung (principal)
CPT/HCPCS: 71250

== ENCOUNTER 2023-09-26 08:29 | Oncology outpatient (recurring) (ONCR) | payer MEDICARE, MEDICAID, SELFPAY | END 2023-10-18 23:59 | disposition home or self-care (01) | LOC: ONCMED 08:31 | PROVIDERS: PCP Internal Medicine; Visit Provider Radiology Radiation Oncology | DX: Z08 Encounter for follow-up examination after completed treatment for malignant neoplasm (principal); C34.11 Malignant neoplasm of upper lobe, right bronchus or lung; M81.0 Age-related osteoporosis without current pathological fracture; M54.50 Low back pain, unspecified; G89.29 Other chronic pain; J44.9 Chronic obstructive pulmonary disease, unspecified | CPT/HCPCS: 99213 ==

== ENCOUNTER 2023-10-01 10:46 | Emergency (ER) | payer MEDICARE, MEDICAID, SELFPAY ==
[2023-10-01 10:51] VITALS: BP 169/72; PULSE 89; RESP 16; TEMP 37.1; O2SAT 96; BMI 25.1
--- NOTE | 2023-10-01 11:05 | CT_ITS ---
WS: [id number] CT LUMBAR SPINE TECHNIQUE: Noncontrast CT of the lumbar spine with coronal and sagittal reformatted images. CLINICAL INFORMATION: trauma/fall COMPARISON: MRI 2016 DLP: 399.[address] scans at [facility] use at least one of these dose optimization techniques: automated e xposure control; mA and/or kV adjustment per patient size (includes targeted exams where dose is matc hed to clinical indication); or iterative reconstruction. FINDINGS: Mild lumbar curve. No acute compression. No high-grade central canal stenosis. No acute appearing com pression fractures. L1-L2: Normal. L2-L3: Normal. L3-L4: Mild annular bulging. Mild facet arthropathy. Spinal canal and foramen are patent. L4-L5: Mild annular bulging. Slight effacement of the ventral thecal sac. Foramen are patent. Mild fa cet arthropathy. L5-S1: Mild annular bulging. Spinal canal and foramen are patent. Mild facet arthropathy. Visualized pelvic bony structures: Normal. Paravertebral soft tissues: Normal. IMPRESSION: No acute fractures
--- NOTE | 2023-10-01 11:17 | W.ED.FALL ---
HPI - Fall General: Chief Complaint: Fall Stated Complaint: Back Pain Post Fall Time Seen by Provider: 10/01/23 11:03 Source: patient Mode of arrival: EMS History of Present Illness: 73-year-old female presents emergency room complaining of low back pain neck and head pain. She fell off the porch while she was trying to separate 2 dogs that were fighting. She was able to get up and go back into the house this morning she has been quite a bit more sore than she was yesterday she is unsure if she lost consciousness. Her biggest complaint is her low back pain. Denies any nausea or vomiting no hematuria. MD complaint: fall Onset (ago): day(s) (1) Fall from: standing Place fall occurred: home Loss of consciousness: Unsure Prolonged down time: no Symptoms prior to fall: none Context: tripped/slipped Location of injury: head and neck Severity: mild Associated symptoms-after fall: Denies abdominal pain, chest pain, confusion, difficulty walking, headache(s), hematuria, lightheadedness, neck pain, numbness, short of breath, vertigo or weakness Review of Systems Const: Denies: fever(s) or chills Card: Denies: chest pain or lightheadedness Resp: Denies: dyspnea GI: Denies: abdominal pain : Denies: hematuria Musc: Denies: neck pain Skin/Breast: Denies: rash Neuro: Denies: headache(s), difficulty walking, vertigo or confusion PFS ED PFSH: Medical History CAD (coronary artery disease) Chronic bilateral low back pain with left-sided sciatica Encounter for long-term use of opiate analgesic Essential hypertension Generalized anxiety disorder History of CVA (cerebrovascular accident) History of IN (myocardial infarction) History of thyrotoxicosis Hoarding behavior Opioid contract exists Other stressful life events affecting family and household Prinzmetal angina Psychiatric care Schizoaffective disorder, depressive type Surgical History H/O section H/O heart surgery H/O partial thyroidectomy History of appendectomy History of hysterectomy Hx of cataract surgery Family History Other Diabetes Denies family history of Anesthesia complication Bleeding disorder Social History Smoking and tobacco/nicotine status: former use of tobacco/nicotine Quit status (tobacco/nicotine): has quit using Year quit tobacco: 2015 Former quit date comment: 2 PPD for 50 years Second hand smoke exposure: No Alcohol intake: never Substance/Drug Use: never Lives independently: Yes Household members: none Marital status: Current occupational status: disabled Do you think of yourself as: Straight/Heterosexual Current gender identity: Female Physical Exam Const: GENERAL APPEARANCE: cooperative and comfortable ORIENTATION/CONSCIOUSNESS: Yes awake, Yes oriented to person, Yes oriented to place and Yes oriented to time HENMT: COMMON NORMALS: normocephalic, atraumatic and hearing grossly normal bilaterally HEAD & SCALP: normocephalic and atraumatic Neck/C-Spine: CERVICAL SPINE: Yes pain with cervical ROM (Pt asked to stop moving her neck she was initially brought in w/o collar) Resp: COMMON NORMALS: normal respiratory effort, No retractions, No use of accessory muscles and clear to auscultation bilaterally AUSCULTATION: clear to auscultation bilaterally Cardio: COMMON NORMALS: regular rate, regular rhythm and No murmurs present (Cardio) RATE: regular rate RHYTHM: regular rhythm GI: COMMON NORMALS: Soft to palpation and No hepatosplenomegaly present AUSCULTATION: Yes normoactive bowel sounds PALPATION: Yes Soft to palpation, No Tenderness to palpation present (GI), No Guarding due to palpation present (GI) and Yes No hepatosplenomegaly present Extremity: COMMON NORMALS: capillary refill normal, no clubbing, cyanosis or edema, no calf tenderness and no pedal edema OTHER: Obvious deformity left wrist neurovascular intact Neuro: SENSORIUM/ORIENTATION: Yes oriented to person, Yes oriented to place and Yes oriented to time Skin: COMMON NORMALS: no rashes or lesions noted GENERAL SKIN EXAM: no rashes or lesions noted Course Vital Signs: Vital signs: Vital Signs Temperature 98.8 F 10/01/23 10:51 Pulse Rate 89 10/01/23 10:51 Respiratory Rate 24 H 10/01/23 11:22 Blood Pressure 166/70 10/01/23 12:01 Pulse Oximetry 98 10/01/23 12:01 Oxygen Delivery Me thod Room Air 10/01/23 10:51 MDM - Fall Medical Decision Making CT shows a C2 type III dens fracture with no significant dislocation is also a left wrist fracture there are older upper thoracic compression fractures. Discussed with Dr. Johnson he recommends immobilization pain medications and follow-up with him in the clinic we will also have her follow-up with him for the wrist fracture. Differential Diagnosis Likely fracture of wrist, compression fracture and concussion with loss of consciousness Medical Records I reviewed the patient's medical records. Lab Data I reviewed the patient's lab results. 10/01/23 11:36 10/01/23 11:36 Laboratory Results WBC 13.95 10^3/uL (3.29-11.43) H 10/01/23 11:36 RBC 4.92 10^6/uL (3.85-5.65) 10/01/23 11:36 Hgb 14.60 g/dL (11.27-16.99) 10/01/23 11:36 Hct 44.6 % (36-47) 10/01/23 11:36 MCV 90.7 fl (85-98) 10/01/23 11:36 MCH 29.7 pg (27-33) 10/01/23 11:36 MCHC 32.7 g/dL (30-55) 10/01/23 11:36 RDW 12.5 % (12.1-15.1) 10/01/23 11:36 Plt Count 300 10^3/cmm (157-399) 10/01/23 11:36 MPV 8.6 fL (7.4-10.4) 10/01/23 11:36 Neut % (Auto) 84.8 % 10/01/23 11:36 Lymph % (Auto) 8.5 % 10/01/23 11:36 Smyth % (Auto) 5.9 % 10/01/23 11:36 Eos % (Auto) 0.1 % 10/01/23 11:36 Baso % (Auto) 0.3 % 10/01/23 11:36 Neut # (Auto) 11.83 10^3/uL (1.8-7.7) H 10/01/23 11:36 Lymph # (Auto) 1.2 10^3/uL (0.8-4.8) 10/01/23 11:36 Smyth # (Auto) 0.8 10^3/uL (0.2-0.9) 10/01/23 11:36 Eos # (Auto) 0.0 10^3/uL (0.0-0.8) 10/01/23 11:36 Baso # (Auto) 0.0 10^3/uL (0.0-0.1) 10/01/23 11:36 Nucleated RBC % (auto) 0 % 10/01/23 11:36 Nucleated RBCs # 0.0 /100WBC 10/01/23 11:36 Sodium 138 mmol/L (136-145) 10/01/23 11:36 Potassium 4.4 mmol/L (3.5-5.1) 10/01/23 11:36 Chloride 99 mmol/L (98-107) 10/01/23 11:36 Carbon Dioxide 28 mmol/L (22-29) 10/01/23 11:36 Anion Gap 15.4 (5-19) 10/01/23 11:36 BUN 12 mg/dL (8-23) 10/01/23 11:36 Creatinine 0.6 mg/dL (0.5-0.9) 10/01/23 11:36 GFR Calculation Not Reportable 10/01/23 11:36 Glucose 126 mg/dL (65-115) H 10/01/23 11:36 Calculated Osmolality 287 mOsm/kg (285-295) 10/01/23 11:36 Calcium 9.5 mg/dL (8.5-10.5) 10/01/23 11:36 Total Bilirubin 0.5 mg/dL (0.15-1.2) 10/01/23 11:36 AST 25 U/L (0-32) 10/01/23 11:36 ALT 26 U/L (0-33) 10/01/23 11:36 Alkaline Phosphatase 99 U/L (35-105) 10/01/23 11:36 Total Protein 7.4 g/dL (6.6-8.7) 10/01/23 11:36 Albumin 4.1 g/dL (3.5-5.2) 10/01/23 11:36 Globulin 3.3 g/dL (1.3-4.6) 10/01/23 11:36 Urine Color Yellow (Yellow) 10/01/23 11:35 Urine Appearance Clear (CLEAR) 10/01/23 11:35 Urine pH 6 (5-7) 10/01/23 11:35 Ur Specific [place] 1.010 (1.005-1.030) 10/01/23 11:35 Urine Protein Neg (Negative) 10/01/23 11:35 Urine Glucose (UA) Norm (Normal) 10/01/23 11:35 Urine Ketones 1+ (Negative) H 10/01/23 11:35 Urine Blood Neg (Negative) 10/01/23 11:35 Urine Nitrate Negative (Negative) 10/01/23 11:35 Urine Bilirubin Neg (Negative) 10/01/23 11:35 Urine Urobilinogen Norm mg/dL (Negative) 10/01/23 11:35 Ur Leukocyte Esterase Negative (Negative) 10/01/23 11:35 All radiology interpretation(s) finalized by discharge Discharge Plan Discharge Patient Disposition: Home Clinical Impression: Back pain, Neck pain, Fall Condition: Stable Prescriptions: New diclofenac sodium 75 mg tablet,delayed release (DR/EC) 75 mg PO Q12H PRN (Reason: pain) Qty: 20 0RF Discontinued ibuprofen 800 mg tablet 800 mg PO Q12H PRN (Reason: Pain) No Action guaifenesin [Mucinex] 600 mg tablet extended release 12hr 600 mg PO QID PRN (Reason: Congestion) docusate sodium [Colace] 100 mg capsule 100 mg PO QID PRN (Reason: Constipation) montelukast [Singulair] 10 mg tablet 10 mg PO DAILY oxycodone 5 mg tablet 5 mg PO BID PRN (Reason: pain) 30 Days Qty: 60 0RF tizanidine 2 mg tablet 2 mg PO TID PRN (Reason: muscle spasticity) 30 Days Qty: 90 1RF pantoprazole 40 mg tablet,delayed release (DR/EC) 40 mg PO BID albuterol sulfate 2.5 mg /3 mL (0.083 %) solution for nebulization 2.5 mg INHALATION Q4H PRN (Reason: Shortness Of Breath) nitroglycerin 0.2 mg/hr patch 24 hour 1 patch transdermal Q24H Qty: 15 0RF Rx Instructions: allow nitrate-free interval of approx. 10-12 hrs per 24-hour period; make appt for refills escitalopram oxalate [Lexapro] 5 mg tablet 15 mg PO .morning Qty: 270 2RF Rx Instructions: Take three tablets every morning Narcan 4 mg/actuation spray,non-aerosol 4 mg intranasal Q3M PRN (Reason: opioid overdose) Qty: 1 3RF Rx Instructions: spray 1 dose into 1 nostril; alternate nostril w ea dose until help arrive nitroglycerin 0.4 mg tablet, sublingual 0.4 mg SUBLINGUAL Q5M PRN (Reason: chest pain) Qty: 25 3RF Trelegy Ellipta 100-62.5-25 mcg blister with device 1 inh INHALATION DAILY Qty: 60 5RF azelastine 137 mcg (0.1 %) aerosol,spray 1 spray intranasal BID PRN (Reason: Allergy Symptoms) Qty: 30 5RF Rx Instructions: administer into each nostril alprazolam 0.5 mg tablet 0.25 mg PO TID PRN (Reason: anxiety) Qty: 45 2RF Rx Instructions: May take half tablet three times per day as needed for anxiety triamcinolone acetonide 0.1 % cream 1 applic TOPICAL BID levothyroxine 75 mcg tablet 75 mcg PO DAILY metoprolol succinate 25 mg tablet extended release 24 hr 25 mg PO DAILY epinephrine 0.3 mg/0.3 mL auto-injector See Rx Instructions .ROUTE .COMPLEX Rx Instructions: INJECT DIRECTED NEEDED FOR ANAPHYLAXIS albuterol sulfate 90 mcg/actuation HFA aerosol inhaler 1 inh INHALATION DAILY lisinopril 40 mg tablet 40 mg PO DAILY Discharge Orders: Discharge ED (Routine); Ordered 10/01/23 Ordered By: Nicolás Laureano Referrals: Miller Paredes DO [Primary Care Provider] - Discharge Diet: Usual diet Discharge Activity: Increase activity as tolerated Patient Instructions: Opioid Safety, Pain Management Activity Restrictions/Additional Instructions: Thank you for choosing [facility] for your healthcare needs today. Please realize this is an emergency room and that we are providing you with a medical screening exam and this may not be complete and all inclusive of all the testing and or work up that you may need to determine your ailment or severity of your illness. It is very important that you follow up as instructed or that you return to the Emergency Department should you have concerns or if your condition changes or worsens in any way. 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
--- NOTE | 2023-10-01 11:20 | CT_ITS ---
WS: [id number] CT CERVICAL TRAUMA TECHNIQUE: Noncontrast CT of the cervical spine with coronal and sagittal reformatted images. CLINICAL INFORMATION: trauma COMPARISON: None. DLP: 1335.[address] scans at [facility] use at least one of these dose optimization techniques: automated e xposure control; mA and/or kV adjustment per patient size (includes targeted exams where dose is matc hed to clinical indication); or iterative reconstruction. FINDINGS: Mild cervical curve. Slight exaggeration of the normal cervical lordosis. Normal craniocervical junct ion. Normal C1-C2 articulation. Dens is normal in appearance. Normal occipital condyles. No high-grad e spinal canal narrowing. Normal C1 ring. No evidence of acute fracture or dislocation. Fibrosis in t he lung apices. 12 mm LEFT thyroid nodule. Normal prevertebral soft tissues. Mastoids air cells are well aerated. IMPRESSION: 1. No evidence of acute fracture or dislocation. 2. Mild spondylitic changes.
--- NOTE | 2023-10-01 11:20 | CT_ITS ---
WS: [id number] CT HEAD TECHNIQUE: Noncontrast CT of the head obtained from the skullbase to the vertex. CLINICAL INFORMATION: trauma COMPARISON: MRI 2017 DLP: 1335.[address] scans at [facility] use at least one of these dose optimization techniques: automated e xposure control; mA and/or kV adjustment per patient size (includes targeted exams where dose is matc hed to clinical indication); or iterative reconstruction. FINDINGS: No evidence of intracranial hemorrhage or mass effect. Ventricular system and basal cisterns are jimenez nt. Mild small vessel changes with moderate parenchymal volume loss. No extra-axial fluid collections . No evidence of mass or mass effect. Chronic encephalomalacia in the LEFT posterior frontal and ante rior parietal lobes likely to prior infarct. This is unchanged since 2017. Intracranial vascular calc ification. Chronic mucosal thickening RIGHT sphenoid sinus. Paranasal sinuses are otherwise well aerated. Mastoi d air cells are well aerated. Normal posterior nasopharynx. IMPRESSION: 1. No evidence of intracranial hemorrhage or mass effect. 2. No acute intracranial findings.
--- NOTE | 2023-10-01 11:21 | XR_ITS ---
WS: [id number] Exam: XR chest 1V portable [id number] Date/Time of Exam: 10/01/2023 11:22 AM Reason For Exam: dyspnea/cough Comparison 02/19/2023 the lungs are hyperinflated. No acute infiltrates. Extensive changes of fibrosis and scarring in the mid and upper lung zones. Normal heart size. The mediastinum is normal in contour . Signs of atrial septal repair. Bony structures are intact. IMPRESSION: 1. Pulmonary hyperinflation probably indicating obstructive lung disease. Extensive changes of fibros is and scarring in the mid and upper lung zones. 2. No acute process.
[2023-10-01 11:22] VITALS: BP 161/74; RESP 24; O2SAT 96
[2023-10-01 11:43] LABS: Basophils % 0.3 %; Eosinophils % 0.1 %; Hematocrit 44.6 % (36-47); Lymphocytes # 1.2 10^3/uL (0.8-4.8); Lymphocytes % 8.5 %; Mean Corpuscular HGB Conc 32.7 g/dL (30-55); Mean Corpuscular Hemoglobin 29.7 pg (27-33); Mean Corpuscular Volume 90.7 fl (85-98); Mean Platelet Volume 8.6 fL (7.4-10.4); Monocytes # 0.8 10^3/uL (0.2-0.9); Monocytes % 5.9 %; Neutrophils # 11.83 10^3/uL (1.8-7.7); Neutrophils % 84.8 %; Nucleated Red Blood Cells % 0 %; Platelet Count 300 10^3/cmm (157-399); Red Blood Count 4.92 10^6/uL (3.85-5.65); Red Cell Distribution Width 12.5 % (12.1-15.1); White Blood Count 13.95 10^3/uL (3.29-11.43)
[2023-10-01 11:43] LABS: Add Urine Microscopic? NO; Charge for UA Resulting for Rev
[2023-10-01 11:55] LABS: Bilirubin Urine Neg (Negative); Blood Urine Neg (Negative); Glucose Urine UA Norm (Normal); Ketones Urine 1+ (Negative); Leukocyte Esterase Urine Negative (Negative); Nitrate Urine Negative (Negative); Protein Urine Neg (Negative); Urine Appearance Clear (CLEAR); Urine Color Yellow (Yellow); Urobilinogen Urine Norm (Negative); pH Urine 6 (5-7)
[2023-10-01 12:00] LABS: Alanine Aminotransferase 26 U/L (0-33); Albumin Level 4.1 g/dL (3.5-5.2); Alkaline Phosphatase 99 U/L (35-105); Anion Gap 15.4 (5-19); Aspartate Amino Transferase 25 U/L (0-32); Blood Urea Nitrogen 12 mg/dL (8-23); Calcium 9.5 mg/dL (8.5-10.5); Carbon Dioxide 28 mmol/L (22-29); Chloride 99 mmol/L (98-107); Globulin 3.3 g/dL (1.3-4.6); Glucose 126 mg/dL (65-115); Osmolality Calculated 287 mOsm/kg (285-295); Potassium 4.4 mmol/L (3.5-5.1); Sodium 138 mmol/L (136-145); Total Bilirubin 0.5 mg/dL (0.15-1.2); Total Protein 7.4 g/dL (6.6-8.7)
[2023-10-01 12:01] VITALS: BP 166/70; O2SAT 98
== END 2023-10-01 12:52 | disposition home or self-care (01) ==
PROVIDERS: Emergency Provider Family Medicine; PCP Internal Medicine
DX: M54.50 Low back pain, unspecified (principal); M54.2 Cervicalgia; I25.10 Atherosclerotic heart disease of native coronary artery without angina pectoris; I10 Essential (primary) hypertension; Z86.73 Personal history of transient ischemic attack (TIA), and cerebral infarction without residual deficits; I25.2 Old myocardial infarction; Z87.891 Personal history of nicotine dependence; W17.89XA Other fall from one level to another, initial encounter
CPT/HCPCS: 36415; 70450; 71045; 72125; 72131; 80053; 81003; 85025; 99284

== ENCOUNTER → 2023-10-04 12:48 | Outpatient (BNVA) | payer MEDICARE, MEDICAID, SELFPAY | PROVIDERS: PCP Internal Medicine; Visit Provider Specialist | DX: G43.711 Chronic migraine without aura, intractable, with status migrainosus (principal) | CPT/HCPCS: 64615; 95911 ==

== ENCOUNTER 2023-10-23 08:54 | Outpatient (CLI) | payer MEDICARE, MEDICAID, SELFPAY ==
--- NOTE | 2023-10-23 09:00 | MM_ITS ---
WS: [id number] DIAGNOSTIC BILATERAL DIGITAL BREAST TOMOSYNTHESIS MAMMOGRAPHY WITH CAD RIGHT breast ultrasound, limited. HISTORY: POST BX LT/RT BR LUMP COMPARISON: 05/31/2022, 05/05/2022, 12/10/2020 TECHNIQUE: Bilateral craniocaudad, mediolateral oblique, and mediolateral views are submitted with to mosmyriam and PAULINE. Spot compression bilateral breast computer aided detection utilized. Note: Patient presents with a new palpable area in the RIGHT breast. Patient previously requested to return for additional evaluation of the LEFT breast mass. Patient did not return at the requested belkys e. It has been of nearly 1 1/2 years since the prior mammogram and ultrasound. Breast composition: There are scattered areas of fibroglandular density. Palpable marker along the RI GHT axillary tail. There is no underlying abnormality. There is an oil cyst towards the axillary tail but this is inferior to the marker. Benign calcifications in the RIGHT breast. There are multiple ma sses which are stable in the LEFT breast. These are probably oil cysts or lymph nodes. RIGHT breast ultrasound, limited. RIGHT breast ultrasound directed to the palpable area. At 11:00, 2 cm from the nipple is a hypoechoic mass measuring 4 x 3 x 3 mm. This is smaller than the oil cyst seen in the upper outer quadrant by m ammography. This may be a small lymph node. IMPRESSION: MM/[place] [id number] BI-RADS: 3-Probably Benign FOLLOW UP: 6 Month Follow-up 6-month follow-up RIGHT breast palpable nodule at 11:00. This may be a small be nign lymph node. There is an adjacent oil cyst seen by mammography which is lar ida in size. Multiple oil cysts in the LEFT breast. No additional follow-up necessary.
== END 2023-10-23 08:55 | disposition home or self-care (01) ==
LOC: RAD 08:55
PROVIDERS: PCP Internal Medicine; Visit Provider Internal Medicine
DX: R92.8 Other abnormal and inconclusive findings on diagnostic imaging of breast (principal); N63.10 Unspecified lump in the right breast, unspecified quadrant; N63.20 Unspecified lump in the left breast, unspecified quadrant; Z12.31 Encounter for screening mammogram for malignant neoplasm of breast
CPT/HCPCS: 76642; 77062; G0279

== ENCOUNTER → 2023-11-01 10:25 | Outpatient (BNVA) | payer MEDICARE, MEDICAID, SELFPAY | PROVIDERS: PCP Internal Medicine; Visit Provider Podiatrist Foot & Ankle Surgery | DX: L60.3 Nail dystrophy (principal); R09.89 Other specified symptoms and signs involving the circulatory and respiratory systems; I73.9 Peripheral vascular disease, unspecified | CPT/HCPCS: 11721 ==

== ENCOUNTER → 2024-01-10 12:19 | Outpatient (BNVA) | payer MEDICARE, MEDICAID, SELFPAY | PROVIDERS: PCP Internal Medicine; Visit Provider Specialist | DX: G43.711 Chronic migraine without aura, intractable, with status migrainosus (principal) | CPT/HCPCS: 64615 ==

== ENCOUNTER → 2024-02-06 09:15 | Outpatient (BNVA) | payer MEDICARE, MEDICAID, SELFPAY | PROVIDERS: PCP Internal Medicine; Visit Provider Podiatrist Foot & Ankle Surgery | DX: L60.8 Other nail disorders (principal); L60.3 Nail dystrophy; R09.89 Other specified symptoms and signs involving the circulatory and respiratory systems; I73.9 Peripheral vascular disease, unspecified | CPT/HCPCS: 11721 ==

== ENCOUNTER → 2024-03-12 14:07 | Outpatient (BNVA) | payer MEDICARE, MEDICAID, SELFPAY | PROVIDERS: PCP Internal Medicine; Visit Provider Internal Medicine Pulmonary Disease | DX: J44.9 Chronic obstructive pulmonary disease, unspecified (principal); J43.2 Centrilobular emphysema; C34.90 Malignant neoplasm of unspecified part of unspecified bronchus or lung; J30.9 Allergic rhinitis, unspecified; Z87.891 Personal history of nicotine dependence | CPT/HCPCS: 99214 ==

== ENCOUNTER → 2024-04-10 12:22 | Outpatient (BNVA) | payer MEDICARE, MEDICAID, SELFPAY | PROVIDERS: PCP Internal Medicine; Visit Provider Specialist | DX: G43.711 Chronic migraine without aura, intractable, with status migrainosus (principal) | CPT/HCPCS: 64615 ==

== ENCOUNTER 2024-04-23 13:03 | Outpatient (CLI) | payer MEDICARE, MEDICAID, SELFPAY ==
--- NOTE | 2024-04-23 13:15 | CTR_ITS ---
PROCEDURE INFORMATION: Exam: CT Chest Without Contrast; Diagnostic Exam date and time: 04/23/2024 1:17 PM Age: 73 years old Clinical indication: Condition or disease; Lung condition and disease; Cancer of the lung; Unspecified; Prior surgery; Surgery date: 6+ months; Surgery type: Right lung; Additional info: Lung cancer, PT has had sabr for lung cancer 01/2021. Stage i lung cancer. TECHNIQUE: Imaging protocol: Diagnostic computed tomography of the chest without contrast. Radiation optimization: All CT scans at this facility use at least one of these dose optimization techniques: automated exposure control; mA and/or kV adjustment per patient size (includes targeted exams where dose is matched to clinical indication); or iterative reconstruction. COMPARISON: CT chest wo con [id number] 09/21/2023 8:04 AM RADIATION DOSE METRICS: Total DLP (mGy-cm): 228.26 FINDINGS: Lungs: Scattered calcified granulomas within the lungs. Emphysematous change. Chronic pleural thickening posterolateral right upper lobe is without significant change with prior exam. A couple of tiny subpleural nodules on the left, unchanged with prior exam. No interval new or suspicious nodule. Pleural spaces: No pleural effusion or pneumothorax. Heart: No significant cardiomegaly. No pericardial effusion. Prosthetic cardiac valve and coronary artery calcification. Findings are chronic with prior exam. Lymph nodes: No significant lymphadenopathy. A couple of calcified mediastinal lymph nodes. Vasculature: Mild arteriosclerosis of the thoracic aorta. No aneurysmal dilatation. Adrenal glands: Mild chronic left adrenal thickening with prior exam, unchanged. Bones/joints: Chronic deformity or postsurgical change upper right ribs with prior exam. Slight spondylotic change thoracic spine. No acute osseous abnormality. Soft tissues: Unremarkable. CT/CT chest wo con [id number] IMPRESSION: 1. Chronic changes as noted above, including chronic pleural thickening posterolateral right upper lobe with stable appearance with prior exam. 2. No significant change with prior exam, without acute findings. COMMENTS: The presence of pulmonary emphysema on CT is an independent risk factor for lung cancer. In the absence of a history or active diagnosis of lung cancer, it is recommended that this patient with emphysema be evaluated for enrollment in a low dose CT lung cancer screening program.
== END 2024-04-23 13:04 | disposition home or self-care (01) ==
LOC: RAD 13:03
PROVIDERS: PCP Internal Medicine; Visit Provider Radiology Radiation Oncology
DX: C34.90 Malignant neoplasm of unspecified part of unspecified bronchus or lung (principal); J92.9 Pleural plaque without asbestos; J84.10 Pulmonary fibrosis, unspecified; J43.9 Emphysema, unspecified; Z95.2 Presence of prosthetic heart valve; M95.4 Acquired deformity of chest and rib
CPT/HCPCS: 71250

== ENCOUNTER 2024-04-24 12:53 | Oncology outpatient (recurring) (ONCR) | payer MEDICARE, MEDICAID, SELFPAY ==
--- NOTE | 2024-04-24 13:50 | ONCRAD EPV_ITS ---
Radiation Oncology Established Patient Visit Patient: Ange Auguste [id number] : 1950> Age: 73> Sex: Female> Dictated by: Dr. Dia Sorenson Date of Service: 04/24/2024 Referring Physician(s) : Shara Nguyen Diagnosis: C34.11 - Malignant neoplasm of upper lobe, right bronchus or lung, Diagnosed 11/25/2020 (Active) Stage IA3, T1c, N0, M0 Lung cancer. Patient is a 70-year-old lady who was diagnosed with lung cancer 3 years ago. She underwent SBRT and has had serial CT scans every 6 months for the last 3 years. Her most recent scan from yesterday did not reveal any evidence of recurrence or new lesions. She is here today to review the results. Subjectively she has had increasing trouble with shortness of breath. She saw the walk-in clinic physicians and they started her on antibiotics and steroids. She finished those and returned and received an additional steroid shot and additional antibiotics. She still continues to have shortness of breath which she attributes to the humidity. Radiotherapy to Date: Course: Lung - SABR 2020, Treatment Site: [facility] [place], Ref. ID: [id number], Energy: 6X, Dose/Fx (cGy): 1,800, #Fx: 3 / 3, Dose Correction (cGy): 0, Total Dose Delivered (cGy): 5,400, Start Date: 02/07/2021, End Date: 02/11/2021, Elapsed Days: 4 Current History: As above Current Medications: Albuterol Sulfate, aLPRAZolam, amLODIPine Besylate, cVS Mucus Extended Release, cVS Stool Softener, daliresp, escitalopram Oxalate, euthyrox, hYDROcodone-Acetaminophen, meclizine HCl, montelukast Sodium, naproxen, nitro-Dur, pantoprazole Sodium, tiZANidine HCl, traMADol HCl, trelegy Ellipta. Allergies: peanuts and bee stings. Current Complaints / Review of Systems: . Vital Signs: Performed on 04/24/2024 1:10 PM BMI - 24.79 kg/m2 (high), Height - 61 in, Weight - 131.2 lbs, Temperature - 97.4 f, Pulse - 98 /min, Respiration - 18 /min, O2 Sat - 92 % (low), Pain - 0, Fatigue - 0 and BP - 118/ 69 mm(hg). Physical Exam: General: Alert and oriented x 3. No acute distress. HEENT: Normocephalic atraumatic. Pupils are equal, sclera clear, extraocular muscles intact. LUNGS: Clear to auscultation bilaterally without rales, rhonchi or wheeze. HEART: Regular rate and rhythm, . ABDOMEN: Patient is quite thin with minimal adipose tissue EXTREMITIES: No peripheral edema is identified. NEUROLOGIC: Alert and orient x 3. Gait and speech within normal limits. Performance Status: 80 Lab: None pending. Pathology: Primary, c34.11 - malignant neoplasm of upper lobe, right bronchus or lung, Diagnosed 11/25/2020 (active) stage ia3, t1c, n0, m0. Imaging: See HPI Impression: Right-sided lung cancer status post SBRT 3 years ago Plan: At this point we talked about how her COPD has caused her recent symptoms. She was already aware that the humidity and the pollen count as well as a temperature can affect her breathing. She has oxygen at home. She has a nebulizer and breathing treatments. We have just recently lost our pulmonary physicians so we will get her set up with someone either in [place] or [place] based on her desire. We talked about following up in [address] or she will call if any problems should arise in the interim. Signed by: 04/24/2024 1:49:07 PM <<Signature on File>> Time spent with patient: 20 CPT Code: CPT Code:
== END 2024-05-18 23:59 | disposition home or self-care (01) ==
PROVIDERS: PCP Internal Medicine; Visit Provider Radiology Radiation Oncology
DX: C34.11 Malignant neoplasm of upper lobe, right bronchus or lung (principal); Z92.3 Personal history of irradiation; J44.9 Chronic obstructive pulmonary disease, unspecified
CPT/HCPCS: 99213

== ENCOUNTER → 2024-05-13 08:58 | Outpatient (BNVA) | payer MEDICARE, MEDICAID, SELFPAY | PROVIDERS: PCP Internal Medicine; Visit Provider Podiatrist Foot & Ankle Surgery | DX: R09.89 Other specified symptoms and signs involving the circulatory and respiratory systems (principal); I73.9 Peripheral vascular disease, unspecified; L60.8 Other nail disorders; L60.3 Nail dystrophy; M79.671 Pain in right foot | CPT/HCPCS: 11721 ==

== ENCOUNTER 2024-05-26 06:35 | Inpatient (IN) | payer MEDICARE, MEDICAID, SELFPAY ==
[2024-05-26] VITALS (31 sets, daily range): BP systolic 131–164; BP diastolic 71–91; PULSE 74–119; RESP 18–32; TEMP 36.4–36.9; O2SAT 2–100; BMI 24.5; BMI 23.7
--- NOTE | 2024-05-26 06:43 | XR_ITS ---
WS: [id number] Portable AP upright chest, 05/26/2024 Clinical Data: dyspnea/cough Comparison: Portable chest, 10/01/2024 Findings: No nodules, masses or effusions are seen. The heart is normal. The pulmonary vascularity is not increased. No pneumonia or pneumothorax is seen. There is right upper lobe scarring unchanged. T he aortic arch shows calcification and tortuosity. Monitor leads are on the chest wall. XR/XR chest 1V portable [id number] Impression: 1. Atherosclerosis. 2. Unchanged right upper lobe scarring.
--- NOTE | 2024-05-26 06:45 | ECG_ITS ---
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 Measurements Intervals [place] Rate: 119 P: 82 NC: 140 QRS: 44 QRSD: 126 T: 179 QT: 304 QTc: 428 Interpretive Statements SINUS TACHYCARDIA MODERATE INTRAVENTRICULAR CONDUCTION DELAY [105+ ms QRS DURATION, 80+ ms Q/S IN V1/V2, NO Q AND 60+ ms R IN I/aVL/V5/V6] ST DEVIATION AND MODERATE T-WAVE ABNORMALITY, CONSIDER LATERAL ISCHEMIA [-0.1+ mV T-WAVE IN I/aVL/V5/V6] Compared to ECG 11/08/2018 11:27:21 Intraventricular conduction delay now present T-wave abnormality now present Possible ischemia now present Sinus rhythm no longer present Left bundle-branch block no longer present Electronically Signed On 05-26-2024 12:03:40 CDT by Brandon Pires M.D. [id number]
--- NOTE | 2024-05-26 06:54 | ED_ITS ---
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 History of SC (myocardial infarction) History of CVA (cerebrovascular accident) Generalized anxiety disorder Schizoaffective disorder, depressive type Surgical History History of hysterectomy H/O heart surgery H/O section History of appendectomy H/O partial thyroidectomy Hx of cataract surgery Family History Other Diabetes Denies family history of Anesthesia complication Bleeding disorder Social History Smoking and tobacco/nicotine status: former use of tobacco/nicotine Quit status (tobacco/nicotine): has quit using Year quit tobacco: 2015 Former quit date comment: 2 PPD for 50 years Second hand smoke exposure: No Alcohol intake: never Substance/Drug Use: never Lives independently: Yes Household members: none Marital status: Current occupational status: disabled Do you think of yourself as: Straight/Heterosexual Current gender identity: Female Course Vital Signs: Vital signs: Vital Signs Temperature 97.8 F 05/26/24 06:37 Pulse Rate 119 H 05/26/24 06:37 Respiratory Rate 24 H 05/26/24 06:37 Blood Pressure 147/83 05/26/24 06:37 Pulse Oximetry 87 L 05/26/24 06:37 Oxygen Delivery Me thod Room Air 05/26/24 06:37 Discharge Plan Discharge Condition: Stable Prescriptions: No Action guaifenesin [Mucinex] 600 mg tablet extended release 12hr 600 mg PO QID PRN (Reason: Congestion) docusate sodium [Colace] 100 mg capsule 100 mg PO QID PRN (Reason: Constipation) montelukast [Singulair] 10 mg tablet 10 mg PO DAILY oxycodone 5 mg tablet 5 mg PO BID PRN (Reason: pain) 30 Days Qty: 60 0RF tizanidine 2 mg tablet 2 mg PO TID PRN (Reason: muscle spasticity) 30 Days Qty: 90 1RF pantoprazole 40 mg tablet,delayed release (DR/EC) 40 mg PO BID albuterol sulfate 2.5 mg /3 mL (0.083 %) solution for nebulization 2.5 mg INHALATION Q4H PRN (Reason: Shortness Of Breath) escitalopram oxalate [Lexapro] 5 mg tablet 15 mg PO .morning Qty: 270 2RF Rx Instructions: Take three tablets every morning Narcan 4 mg/actuation spray,non-aerosol 4 mg intranasal Q3M PRN (Reason: opioid overdose) Qty: 1 3RF Rx Instructions: spray 1 dose into 1 nostril; alternate nostril w ea dose until help arrive alprazolam 0.5 mg tablet 0.25 mg PO TID PRN (Reason: anxiety) Qty: 45 3RF Rx Instructions: May take half tablet three times per day as needed for anxiety nitroglycerin 0.2 mg/hr patch 24 hour 1 patch transdermal Q24H Qty: 15 0RF Rx Instructions: allow nitrate-free interval of approx. 10-12 hrs per 24-hour period; make appt for refills Trelegy Ellipta 100-62.5-25 mcg blister with device 1 inh INHALATION DAILY Qty: 60 6RF Botox 100 unit recon soln 155 unit IM Q90D Qty: 2 0RF azelastine 137 mcg (0.1 %) aerosol,spray 1 spray intranasal BID PRN (Reason: Allergy Symptoms) Qty: 30 5RF Rx Instructions: administer into each nostril nitroglycerin 0.4 mg tablet, sublingual 0.4 mg SUBLINGUAL Q5M PRN (Reason: chest pain) Qty: 25 3RF triamcinolone acetonide 0.1 % cream 1 applic TOPICAL BID levothyroxine 75 mcg tablet 75 mcg PO DAILY metoprolol succinate 25 mg tablet extended release 24 hr 25 mg PO DAILY epinephrine 0.3 mg/0.3 mL auto-injector See Rx Instructions .ROUTE .COMPLEX Rx Instructions: INJECT DIRECTED NEEDED FOR ANAPHYLAXIS albuterol sulfate 90 mcg/actuation HFA aerosol inhaler 1 inh INHALATION DAILY lisinopril 40 mg tablet 40 mg PO DAILY diclofenac sodium 75 mg tablet,delayed release (DR/EC) 75 mg PO Q12H PRN (Reason: pain) Qty: 20 0RF Referrals: Miller Paredes DO [Primary Care Provider] - Coding Level of Care Code ED Book[employer] Clerk for g Josue
--- NOTE | 2024-05-26 06:55 | ED_ITS ---
HPI - SOB/Dyspnea 2 General: Chief Complaint: Weakness Stated Complaint: weakness/shortness of breath Time Seen by Provider: 05/26/24 06:36 Source: patient Mode of arrival: EMS History of Present Illness: HPI Narrative: 74-year-old female presents emergency ro om via EMS. Approximately 1 week ago patient was seen at her primary care clinic and started initially on doxycycline she had a lot of GI side effects and was switched to Augmentin a few days later. She not been eating or drinking has continued to have GI upset with vomiting. She has had productive cough with green mucousy sputum and severe shortness of breath, Denies hemoptysis. She has a history of coronary artery disease. She does have some mild chest discomfort. She is a former smoker is a history of COPD is not usually on oxygen. Patient was audibly wheezing and route was given 500 mL LR as well as 4 mg of Zofran started on 2 L of oxygen and given a nebulizer treatment she still continues to have severe wheezing and respiratory distress on arrival. She is now requiring 4 L of oxygen and is still satting in the mid 80s. Is difficult to track her oxygen saturation peripherally. Review of chart patient is diabetic and also has a right upper lobe lung cancer diagnosed November 2020. She has been monitored with chest CTs every 6 months for the last 3 years in April of this year she had a follow-up appointment with radiation oncology and there is no evidence of recurrence on the most recent CT. according to the old notes the biopsy was thought to either be small cell or squamous cell and there was insufficient tissue for further analysis she denies being on oxygen at home. MD elicited complaint: shortness of breath and cough Pertinent past history: COPD Onset (ago): week(s) (1) Context: recent illness Timing: constant Severity: severe Exacerbating factors: exertion, coughing and talking Relieving factors: oxygen, rest, bronchodilators and upright position Known history of: COPD Associated symptoms: Reports chest congestion, chest pain, cough, myalgias, nausea and orthopnea; Deny abdominal pain, diaphoresis, dizziness, extremity pain, fever(s), hemoptysis, lightheadedness, palpitations, paresthesias, polydipsia, polyuria, rash, sense of impending doom, syncope or vomiting Treatment prior to arrival: oxygen and bronchodilator Review of Systems 2 Const: Denies: fever(s) or diaphoresis Card: Reports: chest pain and orthopnea; Denies: palpitations, lightheadedness or syncope Resp: Reports: dyspnea, productive cough, wheezing and chest congestion; Denies: hemoptysis GI: Reports: nausea; Denies: abdominal pain or vomiting : Denies: dysuria, urinary frequency or urinary urgency Musc: Denies: neck pain, back pain or extremity pain Skin/Breast: Denies: rash Neuro: Denies: dizziness Endo: Denies: polyuria or polydipsia PFSH ED 2 PFSH: Medical History Lung cancer Essential hypertension Psychiatric care Hoarding behavior Other stressful life events affecting family and household Prinzmetal angina CAD (coronary artery disease) Opioid contract exists Encounter for long-term use of opiate analgesic 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 History of [place] (myocardial infarction) History of CVA (cerebrovascular accident) Generalized anxiety disorder Schizoaffective disorder, depressive type Surgical History History of hysterectomy H/O heart surgery H/O section History of appendectomy H/O partial thyroidectomy Hx of cataract surgery Family History Other Diabetes Denies family history of Anesthesia complication Bleeding disorder Social History Smoking and tobacco/nicotine status: former use of tobacco/nicotine Quit status (tobacco/nicotine): has quit using Year quit tobacco: 2016 Former quit date comment: 2 PPD for 50 years Second hand smoke exposure: No Alcohol intake: never Substance/Drug Use: never Lives independently: Yes Household members: none Marital status: Current occupational status: disabled Do you think of yourself as: Straight/Heterosexual Current gender identity: Female Physical Exam 2 Const: GENERAL APPEARANCE: cooperative and comfortable O RIENTATION/CONSCIOUSNESS: Yes awake, Yes oriented to person, Yes oriented to place and Yes oriented to time HENMT: COMMON NORMALS: normocephalic, atraumatic and hearing grossly normal bilaterally HEAD & SCALP: normocephalic and atraumatic Resp: EFFORT & INSPECTION: Yes tachypneic, Yes respiratory distress and Yes labored AUSCULTATION: rhonchi and wheezes Cardio: COMMON NORMALS: regular rhythm and No murmurs present (Cardio) R ATE: tachycardic RHYTHM: regular rhythm GI: COMMON NORMALS: Soft to palpation and No hepatosplenomegaly present A USCULTATION: Yes normoactive bowel sounds PALPATION: Yes Soft to palpation, No Tenderness to palpation present (GI), No Guarding due to palpation present (GI) and Yes No hepatosplenomegaly present Extremity: COMMON NORMALS: normal to inspection, capillary refill normal, no clubbing, cyanosis or edema, no calf tenderness and no pedal edema Neuro: SENSORIUM/ORIENTATION: Yes oriented to person, Yes oriented to place and Yes oriented to time Skin: COMMON NORMALS: no rashes or lesions noted GENERAL SKIN EXAM: no rashes or lesions noted Course 2 Vital Signs: Vital signs: Vital Signs Temperature 97.8 F 05/26/24 15:15 Pulse Rate 82 05/26/24 15:16 Respiratory Rate 19 H 05/26/24 15:15 Blood Pressure 131/78 05/26/24 15:15 Pulse Oximetry 99 05/26/24 15:16 Oxygen Delivery Me thod Nasal Cannula 05/26/24 15:15 Oxygen Flow Rate 2 05/26/24 15:16 Fraction of Inspir ed Oxygen 40 05/26/24 10:41 MDM - SOB/Dyspnea Medical Decision Making Acute exacerbation of COPD in a patient with a known history of previous lung cancer treated with radiation. Most recent follow-up did not show any recurrence. CTA done today of the chest did not show any PE did show acute bronchitis. Patient is not requiring oxygen and normally she does not. Admit for acute exacerbation of COPD discussed with hospitalist orders written patient initiated on antibiotics. Differential Diagnosis Likely acute exacerbation of chronic obstructive airways disease Medical Records I reviewed the patient's medical records. Lab Data I reviewed the patient's lab results. 05/26/24 06:52 05/26/24 06:52 Labs/Radiology: Radiology Impressions Chest X-Ray 05/26/24 06:43 Impression: 1. Atherosclerosis. 2. Unchanged right upper lobe scarring. Chest CTA 05/26/24 08:21 IMPRESSION: 1. Findings of acute bronchitis with scattered airway secretions and interval development of multifocal tree-in-bud nodularity and larger nodular opacities compatible with infectious or inflammatory process. 2. Mild mediastinal and bilateral hilar lymphadenopathy likely reactive given above findings. 3. Additional chronic and incidental findings as above, to include atherosclerosis and chronic posterolateral right upper lobe pleural-parenchymal thickening. COMMENTS: The presence of pulmonary emphysema on CT is an independent risk factor for lung cancer. In the absence of a history or active diagnosis of lung cancer, it is recommended that this patient with emphysema be evaluated for enrollment in a low dose CT lung cancer screening program. Laboratory Results WBC 19.26 10^3/uL (3.29-11.43) H 05/26/24 06:52 RBC 5.67 10^6/uL (3.85-5.65) H 05/26/24 06:52 Hgb 16.70 g/dL (11.27-16.99) 05/26/24 06:52 Hct 49.8 % (36-47) H 05/26/24 06:52 MCV 87.8 fl (85-98) 05/26/24 06:52 MCH 29.5 pg (27-33) 05/26/24 06:52 MCHC 33.5 g/dL (30-55) 05/26/24 06:52 RDW 11.9 % (12.1-15.1) L 05/26/24 06:52 Plt Count 417 10^3/cmm (157-399) H 05/26/24 06:52 MPV 8.7 fL (7.4-10.4) 05/26/24 06:52 Neut % (Auto) 77.0 % 05/26/24 06:52 Lymph % (Auto) 15.5 % 05/26/24 06:52 [place] % (Auto) 6.0 % 05/26/24 06:52 Eos % (Auto) 0.2 % 05/26/24 06:52 Baso % (Auto) 0.4 % 05/26/24 06:52 Neut # (Auto) 14.84 10^3/uL (1.8-7.7) H 05/26/24 06:52 Lymph # (Auto) 3.0 10^3/uL (0.8-4.8) 05/26/24 06:52 [place] # (Auto) 1.2 10^3/uL (0.2-0.9) H 05/26/24 06:52 Eos # (Auto) 0.0 10^3/uL (0.0-0.8) 05/26/24 06:52 Baso # (Auto) 0.1 10^3/uL (0.0-0.1) 05/26/24 06:52 Nucleated RBC % (auto) 0 % 05/26/24 06:52 Nucleated RBCs # 0.0 /100WBC 05/26/24 06:52 Specimen Type Arterial 05/26/24 06:48 Sample Site Radial, right 05/26/24 06:48 ABG pH 7.37 (7.35-7.45) 05/26/24 06:48 ABG pCO2 48.3 mmHg (35-45) H 05/26/24 06:48 ABG pO2 94.0 mmHg (80.0-100.0) 05/26/24 06:48 ABG HCO3 28.1 mmol/L (22-26) H 05/26/24 06:48 ABG O2 Saturation 96.1 05/26/24 06:48 ABG Base Excess 1.9 mmol/L (-2.0-2.0) 05/26/24 06:48 Jaguar Test Pos 05/26/24 06:48 A-a O2 Gradient Not Reportable 05/26/24 06:48 Hematocrit 47.6 % (37-47) H 05/26/24 06:48 Hgb O2 Saturation 95.1 % (95-100) 05/26/24 06:48 Carboxyhemoglobin 0.6 %THgb (0.4-20.1) 05/26/24 06:48 Methemoglobin 0.3 % (0.4-1.5) L 05/26/24 06:48 Total Hemoglobin 15.5 g/dL (12-16) 05/26/24 06:48 Sodium 139.0 mmol/L (131-143) 05/26/24 06:48 Potassium 3.3 mmol/L (3.5-5.0) L 05/26/24 06:48 Glucose 129.0 mg/dL (70-115) H 05/26/24 06:48 Ionized Calcium 1.2 mmol/L (1.1-1.4) 05/26/24 06:48 O2 Delivery Device Nc 05/26/24 06:48 O2 Liters/Min 3.0 % 05/26/24 06:48 Composition Tile Layer ID Steve 05/26/24 06:48 Sodium 137 mmol/L (136-145) 05/26/24 06:52 Potassium 3.9 mmol/L (3.5-5.1) 05/26/24 06:52 Chloride 94 mmol/L (98-107) L 05/26/24 06:52 Carbon Dioxide 29 mmol/L (22-29) 05/26/24 06:52 Anion Gap 17.9 (5-19) 05/26/24 06:52 BUN 11 mg/dL (8-23) 05/26/24 06:52 Creatinine 0.7 mg/dL (0.5-0.9) 05/26/24 06:52 GFR Calculation Not Reportable 05/26/24 06:52 Glucose 141 mg/dL (65-115) H 05/26/24 06:52 Calculated Osmolality 286 mOsm/kg (285-295) 05/26/24 06:52 Lactic Acid 2.6 mmol/L (0.5-2.2) H 05/26/24 06:52 Lactic Acid (Sepsis) 1.2 mmol/L (0.5-2.2) 05/26/24 10:30 Calcium 9.2 mg/dL (8.5-10.5) 05/26/24 06:52 Total Bilirubin 0.7 mg/dL (0.15-1.2) 05/26/24 06:52 AST 28 U/L (0-32) 05/26/24 06:52 ALT 52 U/L (0-33) H 05/26/24 06:52 Alkaline Phosphatase 100 U/L (35-105) 05/26/24 06:52 Creatine Kinase 39 U/L (26-192) 05/26/24 06:52 Troponin T Baseline 15 ng/L (0-10) H 05/26/24 06:52 Troponin T 120 Minute 17.35 ng/L (0-10) H 05/26/24 10:30 Delta Troponin T 2.35 ABS# (0-10) 05/26/24 10:30 Total Protein 7.1 g/dL (6.6-8.7) 05/26/24 06:52 Albumin 4.0 g/dL (3.5-5.2) 05/26/24 06:52 Globulin 3.1 g/dL (1.3-4.6) 05/26/24 06:52 Lipase 30 U/L (13-60) 05/26/24 06:52 TSH 0.39 uIU/mL (0.27-4.20) 05/26/24 10:30 Urine Color Yellow (Yellow) 05/26/24 08:40 Urine Appearance Cloudy (CLEAR) A 05/26/24 08:40 Urine pH 5 (5-7) 05/26/24 08:40 Ur Specific [place] 1.020 (1.005-1.030) 05/26/24 08:40 Urine Protein 1+ (Negative) H 05/26/24 08:40 Urine Glucose (UA) Norm (Normal) 05/26/24 08:40 Urine Ketones 2+ (Negative) H 05/26/24 08:40 Urine Blood 2+ (Negative) H 05/26/24 08:40 Urine Nitrate Negative (Negative) 05/26/24 08:40 Urine Bilirubin Neg (Negative) 05/26/24 08:40 Urine Urobilinogen Neg mg/dL (Negative) 05/26/24 08:40 Ur Leukocyte Esterase 1+ (Negative) H 05/26/24 08:40 Urine RBC 0-4 /hpf (0-2) H 05/26/24 08:40 Urine WBC 25-40 /hpf (0-5) H 05/26/24 08:40 Ur Squamous Epith Cells 5-10 /hpf (0-5) H 05/26/24 08:40 Ur Transition Epith Cell 0-4 /hpf 05/26/24 08:40 Amorphous Sediment Not Reportable 05/26/24 08:40 Urine Bacteria 1+ /hpf (NONE) H 05/26/24 08:40 Urine Mucus 3+ /hpf 05/26/24 08:40 Urine Yeast 1+ /hpf H 05/26/24 08:40 Adenovirus (PCR) Not detected (NOT DETECT) 05/26/24 07:03 C. pneumoniae DNA (PCR) Not detected (NOT DETECT) 05/26/24 07:03 Coronavirus 229E (PCR) Not detected (NOT DETECT) 05/26/24 07:03 Human Metapneumovir PCR Detected (NOT DETECT) A 05/26/24 07:03 Influenza A (H1) PCR Not detected (NOT DETECT) 05/26/24 07:03 Influ A (H1/09) PCR Not detected (NOT DETECT) 05/26/24 07:03 Influenza A (H3) PCR Not detected (NOT DETECT) 05/26/24 07:03 Influenza Type A (PCR) Not detected (NOT DETECT) 05/26/24 07:03 Influenza Type B (PCR) Not detected (NOT DETECT) 05/26/24 07:03 M. pneumoniae (PCR) Not detected (NOT DETECT) 05/26/24 07:03 Parainfluenza 1 (PCR) Not detected (NOT DETECT) 05/26/24 07:03 Parainfluenza 2 (PCR) Not detected (NOT DETECT) 05/26/24 07:03 Parainfluenza 3 (PCR) Not detected (NOT DETECT) 05/26/24 07:03 Parainfluenza 4 (PCR) Not detected (NOT DETECT) 05/26/24 07:03 RSV Type A (PCR) Not detected (NOT DETECT) 05/26/24 07:03 RSV Type B (PCR) Not detected (NOT DETECT) 05/26/24 07:03 Entero/Rhino (PCR) Not detected (NOT DETECT) 05/26/24 07:03 SARS-CoV-2 (PCR) Not detected (NOT DETECT) 05/26/24 07:03 All radiology interpretation(s) finalized by discharge Discharge Plan Discharge Patient Disposition: Admitted As Inpatient Admit Provider: Nate Fernandez Clinical Impression: Pneumonia, Acute hypoxic respiratory failure, COPD with acute exacerbation Condition: Stable Coding Level of Care Code ED Medical Collections for Tutu Salas
[2024-05-26 06:59] LABS: ABG PCO2 48.3 mmHg (35-45); ABG PH Result 7.37 (7.35-7.45); Arterial Blood Gas Hematocrit 47.6 % (37-47); Base Excess ABG 1.9 mmol/L (-2.0-2.0); Blood Gas Allen Test Pos; Blood Gas Operator Identificat WALCI; Blood Gas Sample Site Radial, right; Blood Gas Sample Type Arterial; Carboxyhemoglobin 0.6 %THgb (0.4-20.1); HCO3 ABG 28.1 mmol/L (22-26); HGB O2 Sat 95.1 % (95-100); Ionized Calcium Level - ABG 1.2 mmol/L (1.1-1.4); Methemoglobin 0.3 % (0.4-1.5); Oxygen Device NC; Oxygen Saturation ABG 96.1; Potassium Level - ABG 3.3 mmol/L (3.5-5.0); Total Hemoglobin 15.5 g/dL (12-16)
[2024-05-26 07:01] LABS: Basophils # 0.1 10^3/uL (0.0-0.1); Basophils % 0.4 %; Eosinophils % 0.2 %; Hematocrit 49.8 % (36-47); Lymphocytes % 15.5 %; Mean Corpuscular HGB Conc 33.5 g/dL (30-55); Mean Corpuscular Hemoglobin 29.5 pg (27-33); Mean Corpuscular Volume 87.8 fl (85-98); Mean Platelet Volume 8.7 fL (7.4-10.4); Monocytes # 1.2 10^3/uL (0.2-0.9); Neutrophils # 14.84 10^3/uL (1.8-7.7); Nucleated Red Blood Cells % 0 %; Platelet Count 417 10^3/cmm (157-399); Red Blood Count 5.67 10^6/uL (3.85-5.65); Red Cell Distribution Width 11.9 % (12.1-15.1); White Blood Count 19.26 10^3/uL (3.29-11.43)
[2024-05-26] MEDS: aspirin 81 mg Chew Tablet 324 MG PO (07:12)
[2024-05-26] MEDS: dexamethasone 10 mg/mL INJ IM (07:13)
[2024-05-26] MEDS: piperacillin-tazobactam 3.375 GM in sodium chloride 0.9% (plus) 50 ML IV ×3 (07:16→23:28)
[2024-05-26] MEDS: sodium chloride 0.9% 1,000 ML 999 ML IV (07:17)
[2024-05-26 07:18] LABS: Alanine Aminotransferase 52 U/L (0-33); Alkaline Phosphatase 100 U/L (35-105); Anion Gap 17.9 (5-19); Aspartate Amino Transferase 28 U/L (0-32); Blood Urea Nitrogen 11 mg/dL (8-23); Calcium 9.2 mg/dL (8.5-10.5); Carbon Dioxide 29 mmol/L (22-29); Chloride 94 mmol/L (98-107); Creatine Phosphokinase 39 U/L (26-192); Creatinine Clr Calc Pharmacy 50.9057; Globulin 3.1 g/dL (1.3-4.6); Glucose 141 mg/dL (65-115); Lipase 30 U/L (13-60); Osmolality Calculated 286 mOsm/kg (285-295); Potassium 3.9 mmol/L (3.5-5.1); Sodium 137 mmol/L (136-145); Total Bilirubin 0.7 mg/dL (0.15-1.2); Total Protein 7.1 g/dL (6.6-8.7)
[2024-05-26 07:19] LABS: Lactic Sepsis W/Reflex 2.6 mmol/L (0.5-2.2); Troponin(5th) Baseline 15 ng/L (0-10)
[2024-05-26] MEDS: ipratropium-albuterol 3 mL Neb INHALATION ×4 (07:25→23:57)
--- NOTE | 2024-05-26 08:21 | CTR_ITS ---
PROCEDURE INFORMATION: Exam: CTA Chest With Contrast Exam date and time: 05/26/2024 9:03 AM Age: 74 years old Clinical indication: Cough and shortness of breath; Prior surgery; Surgery date: 6+ months; Surgery type: RT lung, gb; Additional info: Hypoxia, history lung cancer TECHNIQUE: Imaging protocol: Computed tomographic angiography of the chest with contrast. Exam focused on the arteries. 3D rendering (Not supervised by radiologist): MIP and/or 3D reconstructed images were created by the technologist. Radiation optimization: All CT scans at this facility use at least one of these dose optimization techniques: automated exposure control; mA and/or kV adjustment per patient size (includes targeted exams where dose is matched to clinical indication); or iterative reconstruction. Contrast material: OMNI 350; Contrast volume: 75 ml; Contrast route: INTRAVENOUS (IV); COMPARISON: CT chest wo con [id number] 04/23/2024 1:17 PM RADIATION DOSE METRICS: Total DLP (mGy-cm): 197.37 FINDINGS: Pulmonary arteries: Normal. No pulmonary emboli. Aorta: Heavy systemic atherosclerosis without aortic aneurysm. No aortic dissection. Thyroid: Prior right thyroidectomy. Stable heterogeneous left thyroid gland. Trachea: Mild dependent layering secretions within the lower trachea and main bronchi with scattered filling defects throughout the bilateral basal segmental and subsegmental airways. Bilateral bronchial thickening. Lungs: Upper lung predominant emphysematous change. Stable posterolateral right upper lobe pleuroparenchymal thickening. Developed mild tree-in-bud nodularity at the lower lobes. Multiple developed irregular nodular opacities such as 1.5 cm subpleural right middle lobe focus on axial image 280 of series 6, 0.9 cm subpleural right lower lobe focus on axial image 296 of series 6, and at both subpleural lung bases. Bilateral calcified granulomata. Pleural spaces: No pneumothorax. No pleural effusion. Heart: Unremarkable. No cardiomegaly. No pericardial effusion. Coronary arteries: Mild coronary artery calcification. Lymph nodes: Mildly prominent mediastinal and bilateral hilar lymph nodes. Calcified mediastinal lymph node in keeping with sequela of old granulomatous disease. Diaphragm: Small hiatal hernia. Gallbladder and biliary ducts: Prior cholecystectomy. Adrenal glands: Bilateral adrenal thickening without discrete mass. Bones/joints: No acute fracture. Chronic fracture deformities of multiple bilateral ribs. Mild degenerative changes along the spine. Soft tissues: Unremarkable. CT/CT angio chest PE protcl [id number] IMPRESSION: 1. Findings of acute bronchitis with scattered airway secretions and interval development of multifocal tree-in-bud nodularity and larger nodular opacities compatible with infectious or inflammatory process. 2. Mild mediastinal and bilateral hilar lymphadenopathy likely reactive given above findings. 3. Additional chronic and incidental findings as above, to include atherosclerosis and chronic posterolateral right upper lobe pleural-parenchymal thickening. COMMENTS: The presence of pulmonary emphysema on CT is an independent risk factor for lung cancer. In the absence of a history or active diagnosis of lung cancer, it is recommended that this patient with emphysema be evaluated for enrollment in a low dose CT lung cancer screening program.
[2024-05-26] MEDS: ondansetron 2 mg/ML SDV 2 mL 4 MG IVP (08:27)
[2024-05-26 08:44] LABS: Reflex Lactate Order REFLEX LACTIC ORDERD
[2024-05-26] MEDS: vancomycin 1,000 MG in sodium chloride 0.9% 250 ML 250 MG IV (08:50)
--- NOTE | 2024-05-26 08:54 | ECG_ITS ---
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 Measurements Intervals [place] Rate: 99 P: 80 AK: 146 QRS: 44 QRSD: 125 T: 203 QT: 396 QTc: 509 Interpretive Statements SINUS RHYTHM LEFT BUNDLE BRANCH BLOCK [120+ ms QRS DURATION, 80+ ms Q/S IN V1/V2, 85+ ms R IN I/aVL/V5/V6] Compared to ECG 05/26/2024 06:45:17 Left bundle-branch block now present Sinus tachycardia no longer present Intraventricular conduction delay no longer present T-wave abnormality no longer present Possible ischemia no longer present Electronically Signed On 05-26-2024 12:05:58 CDT by Brandon Pires M.D. [id number]
[2024-05-26 09:08] LABS: Urine Appearance Cloudy (CLEAR); Urine Color Yellow (Yellow); pH Urine 5 (5-7)
[2024-05-26 09:09] LABS: Add Urine Microscopic? YES; Bilirubin Urine Neg (Negative); Glucose Urine UA Norm (Normal); Leukocyte Esterase Urine 1+ (Negative); Nitrate Urine Negative (Negative); Protein Urine 1+ (Negative); Urobilinogen Urine Neg (Negative)
[2024-05-26 09:10] LABS: Bacteria Urine 1+ /hpf; Mucus Urine 3+ /hpf; RBC Urine 0-4 /hpf (0-2); Transitional Epi Cells Urine 0-4 /hpf; WBC Urine 25-40 /hpf (0-5)
[2024-05-26 09:11] LABS: Add Urine Culture? Yes
[2024-05-26 09:13] LABS: Blood Urine 2+ (Negative)
[2024-05-26 09:14] LABS: Ketones Urine 2+ (Negative)
[2024-05-26] MEDS: iohexol 350 mg/mL 500 mL Btl (per mL) IV (09:22)
--- NOTE | 2024-05-26 10:27 | P.HP_ITS ---
Providers/Chief Complaint 2 Admitting Physician: Nate Fernandez MD, hospitalist Primary Care Provider: Miller Paredes DO Chief Complaint: weakness/shortness of breath History of Present Illness Kalyani Cassidy is a 74 year old female presenting to the hospital with significant shortness of breath. She states she has been sick for at least 1- 1/2 weeks. She has had a cough productive of greenish to yellow sputum. She has had some chest discomfort with coughing. She has felt hot but not recorded any temperatures. She had been prescribed some doxycycline and prednisone but at some point felt like she could not tolerate them from a nausea standpoint. No vomiting. She has significant history of COPD for which she has not been compliant with 2 L of oxygen which has been prescribed as well as multiple other comorbidities. She reports she no longer smokes. Review of Systems 2 General: Reports: 10 or more systems reviewed and unremarkable except in HPI and below Card: Reports: chest pain Resp: Reports: dyspnea and productive cough GI: Reports: nausea; Denies: abdominal pain, vomiting, hematochezia or melena Medications/Allergies Home Medications Medication Instructions Recorded Confirmed Last Taken Type docusate sodium 100 mg capsule 100 mg PO QID PRN Constipation 12/23/19 05/26/24 2 Weeks Ago History (Colace) ~10/26/21 guaifenesin 600 mg tablet, 600 mg PO QID PRN Congestion 12/23/19 05/26/24 11/08/21 History extended release 12 hr (Mucinex) montelukast 10 mg tablet 10 mg PO DAILY 12/23/19 05/26/24 05/24/24 History (Singulair) albuterol sulfate 2.5 mg/3 mL 2.5 mg inhalation Q4H PRN 08/16/20 05/26/24 11/08/21 History (0.083 %) solution for nebulization Shortness Of Breath pantoprazole 40 mg tablet,delayed 40 mg PO BID 08/16/20 05/26/24 05/24/24 History release oxycodone 5 mg tablet 5 mg PO BID PRN pain 30 days #60 12/21/21 05/26/24 05/24/24 Rx tabs tizanidine 2 mg tablet 2 mg PO TID PRN muscle spasticity 12/21/21 05/26/24 Unknown Rx 30 days #90 tabs naloxone 4 mg/actuation nasal 4 mg intranasal Q3M PRN opioid 11/08/22 05/26/24 Unknown Rx spray (Narcan) overdose #1 ea albuterol sulfate 90 mcg/actuation 1 inh inhalation DAILY 10/01/23 05/26/24 05/24/24 History aerosol inhaler epinephrine 0.3 mg/0.3 mL See Rx Instructions .Route .COMPLEX 10/01/23 05/26/24 Unknown History injection, auto-injector levothyroxine 75 mcg tablet 37.5 mcg PO DAILY 10/01/23 05/26/24 05/24/24 History lisinopril 40 mg tablet 40 mg PO DAILY 10/01/23 05/26/24 05/24/24 History nitroglycerin 0.2 mg/hr 1 patch transdermal Q24H chest 10/09/23 05/26/24 Unknown Rx transdermal 24 hour patch pain #15 ea alprazolam 0.5 mg tablet 0.25 mg (1/2 x 0.5 mg) PO TID PRN 01/15/24 05/26/24 Unknown Rx anxiety #45 tabs fluticasone fur. 100 mcg-umeclid 1 inh inhalation DAILY #60 ea 02/19/24 05/26/24 05/24/24 Rx 62.5 mcg-vilant 25 mcg inhalat.powder (Trelegy Ellipta) onabotulinumtoxinA 100 unit 155 unit IM Q90D #2 ea 04/02/24 05/26/24 Unknown Rx solution for injection (Botox) azelastine 137 mcg (0.1 %) nasal 1 spray intranasal BID PRN Allergy 04/18/24 05/26/24 Unknown Rx spray aerosol Symptoms #30 mL nitroglycerin 0.4 mg sublingual 0.4 mg sublingual Q5M PRN chest 04/29/24 05/26/24 Unknown Rx tablet pain #25 tabs alendronate 70 mg tablet 70 mg PO Q7D 05/26/24 05/26/24 Unknown History amoxicillin 875 mg-potassium 1 tab PO BID 05/26/24 05/26/24 05/24/24 History clavulanate 125 mg tablet doxycycline hyclate 100 mg capsule 100 mg PO BID 05/26/24 05/26/24 Unknown History escitalopram oxalate 5 mg tablet 15 mg PO QAM 05/26/24 05/26/24 05/24/24 History (Lexapro) Allergies Allergy/AdvReac Type Severity Reaction Status Date / Time venom-honey bee Allergy Severe ALGY-Anaphy Verified 04/17/24 08:00 laxis amlodipine Allergy ALGY-Rash Verified 04/17/24 08:00 peanut Allergy ALGY-Anaphy Verified 04/17/24 08:00 laxis PFSH Acute 2 PFSH: Medical History Lung cancer Essential hypertension Psychiatric care Hoarding behavior Other stressful life events affecting family and household Prinzmetal angina CAD (coronary artery disease) Opioid contract exists Encounter for long-term use of opiate analgesic 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 History of [place] (myocardial infarction) History of CVA (cerebrovascular accident) Generalized anxiety disorder Schizoaffective disorder, depressive type Surgical History History of hysterectomy H/O heart surgery H/O section History of appendectomy H/O partial thyroidectomy Hx of cataract surgery Family History Other Diabetes Denies family history of Anesthesia complication Bleeding disorder Social History Smoking and tobacco/nicotine status: former use of tobacco/nicotine Quit status (tobacco/nicotine): has quit using Year quit tobacco: 2015 Former quit date comment: 2 PPD for 50 years Second hand smoke exposure: No Alcohol intake: never Substance/Drug Use: never Lives independently: Yes Household members: none Marital status: Current occupational status: disabled Do you think of yourself as: Straight/Heterosexual Current gender identity: Female Vitals/I&O/Wt Last Vital Signs Temp 97.8 F 05/26/24 06:37 Pulse 104 H 05/26/24 08:00 Resp 26 H 05/26/24 08:00 BP 143/79 05/26/24 07:30 Pulse Ox 97 05/26/24 08:00 O2 Del Method Heated High Flow 05/26/24 07:27 O2 Flow Rate 35 05/26/24 07:14 FiO2 41 05/26/24 07:14 05/25/24 05/26/24 05/26/24 22:59 06:59 14:59 Intake Total 1300 / 1300 Balance 1300 / 1300 Weight last 48 hrs Weight 58.967 kg Physical Exam 2 Narrative: General exam is white female, with moderate tachypnea currently on high flow oxygen with 35 L flow and 45% FiO2. HEENT: Atraumatic normocephalic. Oropharynx is clear. Neck is supple no lymphadenopathy thyromegaly Cardiovascular regular rate and rhythm without murmur Lungs diminished breath sounds bilaterally with coarse breath sounds and expiratory wheezing. Accessory muscle use is noted. Abdomen is soft nontender with positive bowel sounds. No obvious organomegaly exams deferred Extremities no cyanosis clubbing edema, cap refill brisk Skin no rash Neuro no focal deficits. Data 05/26/24 06:52 05/26/24 06:52 Other Labs: ABG demonstrates pH 7.37, pCO2 48, pO2 94. Although this as it was on 3 L I believe this was done on high flow. LFTs are normal with exception of ALT of 52 Troponin 15 with repeat 17 Lipase is normal Calcium, albumin normal Lactic acid 2.6 with repeat of 1.2 Urinalysis with 25-40 white blood cells but 5-10 squamous. 0-4 red. Viral respiratory panel demonstrates human [place] pneumonia virus PCR is positive CTA chest demonstrates no pulmonary embolism. Hilar adenopathy likely reactive is noted as well as but entry consistent with pneumonia. Atherosclerotic this is also noted. I reviewed this as well. Chest x-ray I reviewed demonstrates COPD, atherosclerosis EKG which I reviewed demonstrates sinus tachycardia, normal axis, intraventricular conduction delay. This appears to be a left bundle. This was present in 2018 as well. Micro: Microbiology 05/26/24 08:01 Blood Culture - Preliminary Blood SPECIMEN COLLECTED 05/26/24 07:56 Blood Culture - Preliminary Blood SPECIMEN COLLECTED A&P Assessment and plan (1) Pneumonia: Patient has evidence of pneumonia on chest x-ray She was partially treated with doxycycline, and then went on to take Augmentin. She has significant hypoxia today. CT scan demonstrates no evidence of pulmonary embolism Vancomycin and Zosyn were initiated by the emergency department. Will continue Note that her viral studies are positive for [place] pneumonia virus Wean oxygen as tolerated Check MRSA PCR Legionella urinary antigen (2) COPD with acute exacerbation: IV steroids 60 mg every 12 hours in the form of Solu-Medrol DuoNeb every 4 hours Budesonide twice daily (3) Acute hypoxic respiratory failure: Patient with acute hypoxic respiratory failure, wean oxygen as noted Plan History of coronary disease. Trend troponins. Check EKG. Initiate aspirin 81 mg daily, statin Multiple other medical problems as outlined in past medical history Full code Lovenox for DVT prophylaxis Attestations 2 Medical Necessity Statement*: Will need greater than 2 midnight stay for evaluation and treatment of acute respiratory failure with pneumonia requiring high levels of oxygen. Diagnoses Pneumonia J18.9 COPD with acute exacerbation J44.1 Acute hypoxic respiratory failure J96.01 Time Spent (min) 59
[2024-05-26 11:16] LABS: Lactic Acid level (Lactate) 1.2 mmol/L (0.5-2.2)
[2024-05-26 11:18] LABS: Troponin 5 2HR 17.35 ng/L (0-10); Troponin 5 2HR Delta 2.35 ABS# (0-10)
[2024-05-26 11:21] LABS: Adenovirus Not Detected (NOT DETECT); Chlamydia Pneumoniae Not Detected (NOT DETECT); Coronavirus 229E,HKU1,NL63,OC4 Not Detected (NOT DETECT); Human Metapneumovirus Detected (NOT DETECT); Human Rhinovirus/Enterovirus Not Detected (NOT DETECT); Influenza A Not Detected (NOT DETECT); Influenza A H1 Not Detected (NOT DETECT); Influenza A H1-2009 Not Detected (NOT DETECT); Influenza A H3 Not Detected (NOT DETECT); Influenza B Not Detected (NOT DETECT); Mycoplasma Pneumoniae Not Detected (NOT DETECT); Parainfluenza Virus Type 1 Not Detected (NOT DETECT); Parainfluenza Virus Type 2 Not Detected (NOT DETECT); Parainfluenza Virus Type 3 Not Detected (NOT DETECT); Parainfluenza Virus Type 4 Not Detected (NOT DETECT); Respiratory Syncytial Virus A Not Detected (NOT DETECT); Respiratory Syncytial Virus B Not Detected (NOT DETECT); SARS-COV-2 Not Detected (NOT DETECT)
[2024-05-26 12:53] LABS: Thyroid Stimulating Hormone 0.39 uIU/mL (0.27-4.20)
--- NOTE | 2024-05-26 12:54 | ECG_ITS ---
[facility] Test Date: 2024-06-05 Pat Name: Kalyani Cassidy Department: Room: 256 Gender: Female Taco Maker: : 1950 Requested By: Nicolás Irwin Order Number: [id number] Julia MD: Brandon Pires M.D. Measurements Intervals [place] Rate: 92 P: 79 [place]: 149 QRS: 29 QRSD: 125 T: 144 QT: 403 QTc: 499 Interpretive Statements SINUS RHYTHM LEFT BUNDLE BRANCH BLOCK [120+ ms QRS DURATION, 80+ ms Q/S IN V1/V2, 85+ ms R IN I/aVL/V5/V6] Compared to ECG 05/26/2024 09:20:22 No significant changes Electronically Signed On 05-26-2024 14:33:50 CDT by Brandon Pires M.D. [id number]
[2024-05-26 14:27] LABS: Troponin 5 6HR 14.48 ng/L (0-10)
[2024-05-26 14:28] LABS: Troponin 5 6HR Delta -0.52 ng/L (0-12)
[2024-05-26] MEDS: enoxaparin 40 mg/0.4 mL Syringe SUBCUT (15:42)
[2024-05-26] MEDS: aspirin 81 mg EC Tablet PO (15:43)
[2024-05-26] MEDS: methylPREDNISolone sod succ 125 mg/2 mL INJ 60 MG IVP (17:23)
[2024-05-26] MEDS: pantoprazole DR 40 mg Tablet PO (17:24)
[2024-05-26] MEDS: guaiFENesin 600 mg Tablet PO (17:24)
[2024-05-26] MEDS: oxyCODONE 5 mg IR Tab/Cap PO (19:43)
[2024-05-26] MEDS: budesonide 0.5 mg/2 mL Neb INHALATION (19:51)
[2024-05-26] MEDS: atorvastatin 40 mg Tablet PO (21:49)
[2024-05-27] VITALS (17 sets, daily range): BP systolic 118–164; BP diastolic 56–72; PULSE 86–128; RESP 16–20; TEMP 36.4–37; O2SAT 90–97; BMI 24.3
[2024-05-27] MEDS: vancomycin 1,000 MG in sodium chloride 0.9% 250 ML 250 MG IV ×2 (03:36→21:10)
[2024-05-27] MEDS: ipratropium-albuterol 3 mL Neb INHALATION ×5 (04:18→20:37)
[2024-05-27 04:52] LABS: Basophils % 0.2 %; Hematocrit 43.1 % (36-47); Lymphocytes # 0.7 10^3/uL (0.8-4.8); Mean Corpuscular Hemoglobin 29.3 pg (27-33); Mean Corpuscular Volume 91.5 fl (85-98); Mean Platelet Volume 8.6 fL (7.4-10.4); Monocytes # 0.6 10^3/uL (0.2-0.9); Neutrophils # 13.01 10^3/uL (1.8-7.7); Neutrophils % 88.7 %; Nucleated Red Blood Cells % 0 %; Platelet Count 357 10^3/cmm (157-399); Red Blood Count 4.71 10^6/uL (3.85-5.65); Red Cell Distribution Width 12.1 % (12.1-15.1); White Blood Count 14.66 10^3/uL (3.29-11.43)
[2024-05-27 05:29] LABS: Alanine Aminotransferase 52 U/L (0-33); Albumin Level 3.6 g/dL (3.5-5.2); Alkaline Phosphatase 87 U/L (35-105); Anion Gap 17.6 (5-19); Aspartate Amino Transferase 24 U/L (0-32); Blood Urea Nitrogen 18 mg/dL (8-23); Calcium 8.9 mg/dL (8.5-10.5); Carbon Dioxide 26 mmol/L (22-29); Chloride 101 mmol/L (98-107); Creatinine Clr Calc Pharmacy 46.8684; Globulin 3.5 g/dL (1.3-4.6); Glucose 231 mg/dL (65-115); Magnesium 2.1 mg/dL (1.7-2.3); Osmolality Calculated 301 mOsm/kg (285-295); Potassium 3.6 mmol/L (3.5-5.1); Sodium 141 mmol/L (136-145); Total Bilirubin 0.3 mg/dL (0.15-1.2); Total Protein 7.1 g/dL (6.6-8.7)
[2024-05-27] MEDS: escitalopram 10 mg Tablet 15 MG PO (06:38)
[2024-05-27] MEDS: methylPREDNISolone sod succ 125 mg/2 mL INJ 60 MG IVP (06:39)
[2024-05-27] MEDS: piperacillin-tazobactam 3.375 GM in sodium chloride 0.9% (plus) 50 ML IV ×3 (06:39→23:50)
[2024-05-27] MEDS: levothyroxine 75 mcg Tablet 37.5 MCG PO (08:50)
[2024-05-27] MEDS: aspirin 81 mg EC Tablet PO (08:50)
[2024-05-27] MEDS: pantoprazole DR 40 mg Tablet PO ×2 (08:50→18:47)
[2024-05-27] MEDS: guaiFENesin 600 mg Tablet PO ×2 (08:52→18:47)
--- NOTE | 2024-05-27 08:52 | P.PN_ITS ---
Subjective 2 Subjective: Patient reports her breathing is little bit better but she is still wheezing significantly. No chest pain currently. Medications: Reviewed: Yes Vitals/I&O/Wt Last Vital Signs Temp 97.6 F 05/27/24 07:27 Pulse 105 H 05/27/24 07:27 Resp 18 05/27/24 07:27 BP 126/67 05/27/24 07:27 Pulse Ox 95 05/27/24 07:27 O2 Del Method Nasal Cannula 05/27/24 07:27 O2 Flow Rate 2 05/27/24 04:20 FiO2 40 05/26/24 10:41 05/26/24 05/27/24 05/27/24 22:59 06:59 14:59 Intake Total 830 / 2130 540 / 2670 Output Total 150 / 150 150 / 300 Balance 680 / 1980 390 / 2370 Weight last 48 hrs Weight 60.192 kg Weight 58.831 kg Weight 58.967 kg Physical Exam 2 Narrative: General exam is white female, who appears more comfortable but is audibly wheezing. Oxygen has decreased to 3 L. Neck is supple no lymphadenopathy thyromegaly Cardiovascular regular rate and rhythm without murmur Lungs bilateral expiratory wheezing but improved aeration from yesterday Abdomen is soft nontender with positive bowel sounds. No obvious organomegaly Extremities no cyanosis clubbing edema, cap refill brisk Data 05/27/24 04:35 05/27/24 04:35 Micro: Microbiology 05/26/24 08:01 Blood Culture - Preliminary Blood NEGATIVE TO DATE 05/26/24 07:56 Blood Culture - Preliminary Blood NEGATIVE TO DATE 05/27/24 00:40 Legionella Urinary Antigen - Final Urine,Voided 05/26/24 07:03 Gram Stain - Final Sputum - Expectorated Sputum A&P Assessment and plan (1) Pneumonia: Patient has evidence of pneumonia on chest x-ray She was partially treated with doxycycline, and then went on to take Augmentin. She has significant hypoxia today. CT scan demonstrates no evidence of pulmonary embolism Continue vancomycin and Zosyn Note that her viral studies are positive for [place] pneumonia virus. She is on contact precautions Wean oxygen as tolerated Await, sputum culture MRSA PCR Legionella urinary antigen negative (2) COPD with acute exacerbation: Improved. Reduce IV steroids to every 24 hours DuoNeb every 4 hours Budesonide twice daily (3) Acute hypoxic respiratory failure: Patient with acute hypoxic respiratory failure, wean oxygen as noted Improving Plan History of coronary disease. Troponins without concerning trend. Check EKG. continue aspirin 81 mg daily, statin Multiple other medical problems as outlined in past medical history Full code Lovenox for DVT prophylaxis Possible discharge tomorrow Attestations 2 Medical Necessity Statement*: Needs continued hospitalization for IV steroids and frequent breathing treatments in this patient with severe COPD exacerbation now with some improvement as well as pneumonia requiring IV antibiotics. Diagnoses Pneumonia J18.9 COPD with acute exacerbation J44.1 Acute hypoxic respiratory failure J96.01 Time Spent (min) 27
[2024-05-27] MEDS: budesonide 0.5 mg/2 mL Neb INHALATION ×2 (09:04→20:37)
--- NOTE | 2024-05-27 09:24 | PC.CHAP ---
Pastoral Care Encounter/Spiritual Assessment Type of Contact [] Declined slab tripper visit [] Patient/Family/Request visit [] Outpatient visit [] Follow-up visit [] Physician referral [] Code/Alert [] Routine visit [] Staff referral [] Actively dying [] Patient sleeping [] Family support [] [] Out of room [] Palliative care [] [] Receiving care in room [] Pre-surgical visit [] Trauma [] Long length of stay [] ICU visit [x] Other:Contact precautions. No visit. Relational/Emotional Strength [] Patient feels connected with others/family/visitors/staff [] Distress [] Loneliness/isolation [] Abandonment Spirituality of Patient [] Person of Myriam [] Attends Jainism of their Myriam [] Believes in Prayer [] Reads Bible or Scientology materials [] There are Spiritual issues to be addressed [employer] Intern Interventions [] Prayer [] Active listening [] Non-anxious presence [] Spiritual/emotional support [] Crisis/trauma care [] Spiritual counseling [] Bereavement support [] Provided bereavement packet [] Provided Bible/devotional materials [] Provided toy/stuffed animal, coloring book to patient or family member [] Provided Communion [] Anointing/[place] [] Salvation [] Completed spiritual assessment [] Other: Impact on Illness or Injury [] Angry [] Fearful [] Anxious [] Often cries [] Exhaustion [] Unable to work [] Unable to attend adventist [] Unable to walk/stand [] Unable to read [] Unable to drive [] Unable to eat/drink [] Unable to sleep [] Unable to be with family [] Patient intubated [] Other: Summary Time spent with patient
[2024-05-27] MEDS: oxyCODONE 5 mg IR Tab/Cap PO (13:08)
[2024-05-27] MEDS: enoxaparin 40 mg/0.4 mL Syringe SUBCUT (14:46)
[2024-05-27 15:10] LABS: Methicillin-Resist S.aureu PCR NOT DETECTED (NOT DETECTED)
[2024-05-27] MEDS: lisinopril 20 mg Tablet 40 MG PO (21:11)
[2024-05-27] MEDS: atorvastatin 40 mg Tablet PO (21:11)
[2024-05-27] MEDS: montelukast sodium 10 mg Tablet PO (21:11)
[2024-05-28] VITALS (17 sets, daily range): BP systolic 144–163; BP diastolic 66–81; PULSE 92–118; RESP 16–20; TEMP 36.5–37.1; O2SAT 92–96
[2024-05-28] MEDS: ipratropium-albuterol 3 mL Neb INHALATION ×6 (00:07→20:12)
[2024-05-28] MEDS: escitalopram 10 mg Tablet 15 MG PO (06:25)
[2024-05-28] MEDS: levothyroxine 75 mcg Tablet 37.5 MCG PO (06:25)
[2024-05-28] MEDS: piperacillin-tazobactam 3.375 GM in sodium chloride 0.9% (plus) 50 ML IV (06:26)
[2024-05-28] MEDS: methylPREDNISolone sod succ 125 mg/2 mL INJ 60 MG IVP (06:26)
[2024-05-28 06:27] LABS: Basophils # 0.1 10^3/uL (0.0-0.1); Basophils % 0.3 %; Eosinophils % 0.1 %; Hematocrit 38.8 % (36-47); Lymphocytes # 2.2 10^3/uL (0.8-4.8); Lymphocytes % 11.6 %; Mean Corpuscular Hemoglobin 29.1 pg (27-33); Mean Corpuscular Volume 91.1 fl (85-98); Mean Platelet Volume 8.7 fL (7.4-10.4); Monocytes # 1.5 10^3/uL (0.2-0.9); Monocytes % 7.7 %; Neutrophils # 15.27 10^3/uL (1.8-7.7); Neutrophils % 78.9 %; Nucleated Red Blood Cells % 0 %; Platelet Count 326 10^3/cmm (157-399); Red Blood Count 4.26 10^6/uL (3.85-5.65); Red Cell Distribution Width 12.4 % (12.1-15.1); White Blood Count 19.36 10^3/uL (3.29-11.43)
[2024-05-28] MEDS: budesonide 0.5 mg/2 mL Neb INHALATION ×2 (07:19→20:12)
--- NOTE | 2024-05-28 08:59 | PM.PN ---
Subjective Subjective: Patient reports she is breathing a little worse today. Feels like she is wheezing more. Does not feel as comfortable as yesterday. No chest discomfort. Medications: Reviewed: Yes Vitals/I&O/Wt Last Vital Signs Temp 97.9 F 05/28/24 04:00 Pulse 104 H 05/28/24 07:19 Resp 18 05/28/24 07:19 BP 163/81 05/28/24 04:00 Pulse Ox 92 05/28/24 07:19 O2 Del Method Nasal Cannula 05/28/24 07:19 O2 Flow Rate 1 05/28/24 07:19 FiO2 40 05/26/24 10:41 05/27/24 05/28/24 05/28/24 22:59 06:59 14:59 Intake Total 1260 / 1670 290 / 1960 Output Total 350 / 350 Balance 910 / 1320 290 / 1610 Weight last 48 hrs Weight 64.949 kg Weight 60.192 kg Weight 58.831 kg Physical Exam Narrative: General exam is white female, who appears more comfortable but is audibly wheezing. Oxygen has decreased to 1 L. Neck is supple no lymphadenopathy thyromegaly Cardiovascular regular rate and rhythm without murmur Lungs bilateral expiratory wheezing and a few crackles at the bases. Diminished air expansion since yesterday. Abdomen is soft nontender with positive bowel sounds. No obvious organomegaly Extremities no cyanosis clubbing. Trace edema is present Data 05/28/24 05:59 05/27/24 04:35 Micro: Microbiology 05/26/24 08:40 Urine Culture - Preliminary Urine,Clean Catch Yeast species 05/26/24 07:03 Gram Stain - Final Sputum - Expectorated Sputum Sputum Culture - Preliminary Gram Negative Rods 05/26/24 08:01 Blood Culture - Preliminary Blood NEGATIVE TO DATE 05/26/24 07:56 Blood Culture - Preliminary Blood NEGATIVE TO DATE A&P Assessment and plan (1) Pneumonia: Patient has evidence of pneumonia on CT scan She was partially treated with doxycycline, and then went on to take Augmentin. She has significant hypoxia today. CT scan demonstrates no evidence of pulmonary embolism Currently on vancomycin and Zosyn. MRSA PCR negative so we will discontinue vancomycin. Sputum culture growing gram-negative rods. Add Levaquin as patient feels symptomatically worse and continue Zosyn awaiting cultures. Note that her viral studies are positive for [place] pneumonia virus. She is on contact precautions Wean oxygen as tolerated Await formal sputum culture and sensitivity Legionella urinary antigen negative (2) COPD with acute exacerbation: Continue IV steroids. Symptomatically worse today. While I was in the room she was breathing approximately 25/min, with some pursed lip breathing which is worse than yesterday. DuoNeb every 4 hours Budesonide twice daily Secondary to trace edema on exam will give Lasix 40 mg IV x 1, check electrolytes in the morning (3) Acute hypoxic respiratory failure: Patient with acute hypoxic respiratory failure, oxygen has been able to be weaned Plan History of coronary disease. Troponins without concerning trend. EKG stable. Continue aspirin 81 mg daily, statin Multiple other medical problems as outlined in past medical history Full code Lovenox for DVT prophylaxis She is worsened slightly. Hold on discharge. Lasix IV. Recheck tomorrow. Expand antibiotics. Attestations Medical Necessity Statement*: Needs continued hospital stay secondary to IV antibiotics needed for pneumonia with sputum growing gram negative rods in this patient with severe COPD Diagnoses Pneumonia J18.9 COPD with acute exacerbation J44.1 Acute hypoxic respiratory failure J96.01 Time Spent (min) 28
[2024-05-28] MEDS: levofloxacin-dextrose 5 % 750 MG/150 ML PREMIX 100 MG IV (10:15)
[2024-05-28] MEDS: aspirin 81 mg EC Tablet PO (10:15)
[2024-05-28] MEDS: guaiFENesin 600 mg Tablet PO ×2 (10:15→16:46)
[2024-05-28] MEDS: FUROsemide 10 mg/mL SDV 4mL 40 MG IVP (10:16)
[2024-05-28] MEDS: pantoprazole DR 40 mg Tablet PO ×2 (10:17→16:47)
[2024-05-28] MEDS: oxyCODONE 5 mg IR Tab/Cap PO (12:01)
--- NOTE | 2024-05-28 15:16 | PC.SOCIAL ---
IMM updated IMM dated and initialed, copy given to patient and copy placed in chart.
[2024-05-28] MEDS: enoxaparin 40 mg/0.4 mL Syringe SUBCUT (16:47)
[2024-05-28] MEDS: lisinopril 20 mg Tablet 40 MG PO (20:47)
[2024-05-28] MEDS: montelukast sodium 10 mg Tablet PO (20:47)
[2024-05-28] MEDS: atorvastatin 40 mg Tablet PO (20:47)
[2024-05-29] VITALS (11 sets, daily range): BP systolic 140–165; BP diastolic 60–91; PULSE 96–109; RESP 16–20; TEMP 36.7–37.1; O2SAT 86–95
[2024-05-29] MEDS: ipratropium-albuterol 3 mL Neb INHALATION ×3 (00:13→08:23)
[2024-05-29] MEDS: escitalopram 10 mg Tablet 15 MG PO (05:00)
[2024-05-29] MEDS: oxyCODONE 5 mg IR Tab/Cap PO (05:00)
[2024-05-29] MEDS: levothyroxine 75 mcg Tablet 37.5 MCG PO (05:01)
[2024-05-29 05:27] LABS: Basophils % 0.3 %; Eosinophils # 0.1 10^3/uL (0.0-0.8); Eosinophils % 0.4 %; Hematocrit 44.4 % (36-47); Lymphocytes # 2.7 10^3/uL (0.8-4.8); Lymphocytes % 21.5 %; Mean Corpuscular HGB Conc 32.2 g/dL (30-55); Mean Corpuscular Hemoglobin 29.5 pg (27-33); Mean Corpuscular Volume 91.5 fl (85-98); Mean Platelet Volume 8.5 fL (7.4-10.4); Monocytes # 1.1 10^3/uL (0.2-0.9); Monocytes % 8.8 %; Neutrophils # 8.29 10^3/uL (1.8-7.7); Neutrophils % 67.1 %; Nucleated Red Blood Cells % 0 %; Platelet Count 323 10^3/cmm (157-399); Red Blood Count 4.85 10^6/uL (3.85-5.65); Red Cell Distribution Width 12.4 % (12.1-15.1); White Blood Count 12.37 10^3/uL (3.29-11.43)
[2024-05-29 05:46] LABS: Alanine Aminotransferase 41 U/L (0-33); Albumin Level 3.7 g/dL (3.5-5.2); Alkaline Phosphatase 77 U/L (35-105); Anion Gap 14.4 (5-19); Aspartate Amino Transferase 27 U/L (0-32); Blood Urea Nitrogen 19 mg/dL (8-23); Carbon Dioxide 34 mmol/L (22-29); Chloride 96 mmol/L (98-107); Creatinine Clr Calc Pharmacy 54.5802; Globulin 3.2 g/dL (1.3-4.6); Glucose 98 mg/dL (65-115); Osmolality Calculated 294 mOsm/kg (285-295); Potassium 3.4 mmol/L (3.5-5.1); Sodium 141 mmol/L (136-145); Total Bilirubin 0.4 mg/dL (0.15-1.2); Total Protein 6.9 g/dL (6.6-8.7)
[2024-05-29] MEDS: methylPREDNISolone sod succ 125 mg/2 mL INJ 60 MG IVP (06:17)
[2024-05-29] MEDS: aspirin 81 mg EC Tablet PO (08:14)
[2024-05-29] MEDS: potassium chloride ER 20 mEq Tablet 40 MEQ PO (08:14)
[2024-05-29] MEDS: guaiFENesin 600 mg Tablet PO (08:14)
[2024-05-29] MEDS: pantoprazole DR 40 mg Tablet PO (08:14)
[2024-05-29] MEDS: levofloxacin-dextrose 5 % 750 MG/150 ML PREMIX 100 MG IV (08:15)
[2024-05-29] MEDS: budesonide 0.5 mg/2 mL Neb INHALATION (08:23)
--- NOTE | 2024-05-29 08:26 | P.DS_ITS ---
Discharge Providers Date of Admission: 05/26/24 11:09 Date of Discharge: May 29, 2024 Attending Provider at Admission: Nate Fernandez MD Attending Provider at Discharge: Nate Fernandez MD Primary Care Provider: Miller Paredes DO Diagnoses at Discharge Discharge Diagnosis (1) Pneumonia: Status: Acute (2) COPD with acute exacerbation: Status: Acute (3) Acute hypoxic respiratory failure: Status: Acute Reason for Visit Reason for Visit: weakness/shortness of breath Hospital Course Hospital Course Kalyani is a 74-year-old white female who presented to the hospital with cough and shortness of breath going on for over 1 week prior to presentation. She had been on antibiotics, as well as some steroids but had issues with some secondary to GI intolerance. She was placed on Zosyn and vancomycin. Respiratory panel demonstrated Louise pneumonia virus positive. She was given IV steroids. She was given frequent breathing treatments. With these interventions she had gradual improvement. Sputum culture ultimately came back Pseudomonas and Enterobacter, sensitive to levofloxacin. She was switched to this antibiotic(bacteria was a lso sensitive to Zosyn) and was able to be discharged on oral Levaquin on 05/29. She was feeling good at that time. Home oxygen evaluation will be done to determine her exact needs on discharge. She will follow-up with her primary care provider, return for any concerns. She was able to ask questions and agreed with the plan. Secondary to her past history of coronary disease and aspirin and statin were also added. CTA of chest was done on admission which demonstrated no pulmonary embolism, but did show pneumonia in the lung bases. Physical Exam Narrative: General exam no distress Neck is supple Cardiovascular regular rate and rhythm Lungs clear Abdomen soft Extremities no sinus clubbing edema Discharge Data Studies Completed and Pending Completed Studies During Hospitalization Category Date Time Status CT angio chest PE protcl [id number] Stat Cat Scan 05/26/24 08:21 Completed XR chest 1V portable [id number] Stat Exams 05/26/24 06:43 Completed Pending at discharge Category Date Time Status Blood Culture Stat Lab 05/26/24 08:01 Results Urine Culture Stat Lab 05/26/24 08:40 Results Radiology Impressions Chest X-Ray 05/26/24 06:43 Impression: 1. Atherosclerosis. 2. Unchanged right upper lobe scarring. Chest CTA 05/26/24 08:21 IMPRESSION: 1. Findings of acute bronchitis with scattered airway secretions and interval development of multifocal tree-in-bud nodularity and larger nodular opacities compatible with infectious or inflammatory process. 2. Mild mediastinal and bilateral hilar lymphadenopathy likely reactive given above findings. 3. Additional chronic and incidental findings as above, to include atherosclerosis and chronic posterolateral right upper lobe pleural-parenchymal thickening. COMMENTS: The presence of pulmonary emphysema on CT is an independent risk factor for lung cancer. In the absence of a history or active diagnosis of lung cancer, it is recommended that this patient with emphysema be evaluated for enrollment in a low dose CT lung cancer screening program. Laboratory Results WBC 12.37 10^3/uL (3.29-11.43) H 05/29/24 05:18 RBC 4.85 10^6/uL (3.85-5.65) 05/29/24 05:18 Hgb 14.30 g/dL (11.27-16.99) 05/29/24 05:18 Hct 44.4 % (36-47) 05/29/24 05:18 MCV 91.5 fl (85-98) 05/29/24 05:18 MCH 29.5 pg (27-33) 05/29/24 05:18 MCHC 32.2 g/dL (30-55) 05/29/24 05:18 RDW 12.4 % (12.1-15.1) 05/29/24 05:18 Plt Count 323 10^3/cmm (157-399) 05/29/24 05:18 MPV 8.5 fL (7.4-10.4) 05/29/24 05:18 Neut % (Auto) 67.1 % 05/29/24 05:18 Lymph % (Auto) 21.5 % 05/29/24 05:18 [place] % (Auto) 8.8 % 05/29/24 05:18 Eos % (Auto) 0.4 % 05/29/24 05:18 Baso % (Auto) 0.3 % 05/29/24 05:18 Neut # (Auto) 8.29 10^3/uL (1.8-7.7) H 05/29/24 05:18 Lymph # (Auto) 2.7 10^3/uL (0.8-4.8) 05/29/24 05:18 [place] # (Auto) 1.1 10^3/uL (0.2-0.9) H 05/29/24 05:18 Eos # (Auto) 0.1 10^3/uL (0.0-0.8) 05/29/24 05:18 Baso # (Auto) 0.0 10^3/uL (0.0-0.1) 05/29/24 05:18 Nucleated RBC % (auto) 0 % 05/29/24 05:18 Nucleated RBCs # 0.0 /100WBC 05/29/24 05:18 Specimen Type Arterial 05/26/24 06:48 Sample Site Radial, right 05/26/24 06:48 ABG pH 7.37 (7.35-7.45) 05/26/24 06:48 ABG pCO2 48.3 mmHg (35-45) H 05/26/24 06:48 ABG pO2 94.0 mmHg (80.0-100.0) 05/26/24 06:48 ABG HCO3 28.1 mmol/L (22-26) H 05/26/24 06:48 ABG O2 Saturation 96.1 05/26/24 06:48 ABG Base Excess 1.9 mmol/L (-2.0-2.0) 05/26/24 06:48 Jaguar Test Pos 05/26/24 06:48 A-a O2 Gradient Not Reportable 05/26/24 06:48 Hematocrit 47.6 % (37-47) H 05/26/24 06:48 Hgb O2 Saturation 95.1 % (95-100) 05/26/24 06:48 Carboxyhemoglobin 0.6 %THgb (0.4-20.1) 05/26/24 06:48 Methemoglobin 0.3 % (0.4-1.5) L 05/26/24 06:48 Total Hemoglobin 15.5 g/dL (12-16) 05/26/24 06:48 Sodium 139.0 mmol/L (131-143) 05/26/24 06:48 Potassium 3.3 mmol/L (3.5-5.0) L 05/26/24 06:48 Glucose 129.0 mg/dL (70-115) H 05/26/24 06:48 Ionized Calcium 1.2 mmol/L (1.1-1.4) 05/26/24 06:48 O2 Delivery Device Nc 05/26/24 06:48 O2 Liters/Min 3.0 % 05/26/24 06:48 Repair Tech ID Steve 05/26/24 06:48 Sodium 141 mmol/L (136-145) 05/29/24 05:18 Potassium 3.4 mmol/L (3.5-5.1) L 05/29/24 05:18 Chloride 96 mmol/L (98-107) L 05/29/24 05:18 Carbon Dioxide 34 mmol/L (22-29) H 05/29/24 05:18 Anion Gap 14.4 (5-19) 05/29/24 05:18 BUN 19 mg/dL (8-23) 05/29/24 05:18 Creatinine 0.8 mg/dL (0.5-0.9) 05/29/24 05:18 GFR Calculation Not Reportable 05/29/24 05:18 Glucose 98 mg/dL (65-115) 05/29/24 05:18 Calculated Osmolality 294 mOsm/kg (285-295) 05/29/24 05:18 Lactic Acid 2.6 mmol/L (0.5-2.2) H 05/26/24 06:52 Lactic Acid (Sepsis) 1.2 mmol/L (0.5-2.2) 05/26/24 10:30 Calcium 9.0 mg/dL (8.5-10.5) 05/29/24 05:18 Magnesium 2.1 mg/dL (1.7-2.3) 05/27/24 04:35 Total Bilirubin 0.4 mg/dL (0.15-1.2) 05/29/24 05:18 AST 27 U/L (0-32) 05/29/24 05:18 ALT 41 U/L (0-33) H 05/29/24 05:18 Alkaline Phosphatase 77 U/L (35-105) 05/29/24 05:18 Creatine Kinase 39 U/L (26-192) 05/26/24 06:52 Troponin T Baseline 15 ng/L (0-10) H 05/26/24 06:52 Troponin T 120 Minute 17.35 ng/L (0-10) H 05/26/24 10:30 Delta Troponin T 2.35 ABS# (0-10) 05/26/24 10:30 Troponin T Hi Sens 6Hr 14.48 ng/L (0-10) H 05/26/24 13:22 Troponin T Hi Sens 6Hr Delta -0.52 ng/L (0-12) L 05/26/24 13:22 Total Protein 6.9 g/dL (6.6-8.7) 05/29/24 05:18 Albumin 3.7 g/dL (3.5-5.2) 05/29/24 05:18 Globulin 3.2 g/dL (1.3-4.6) 05/29/24 05:18 Lipase 30 U/L (13-60) 05/26/24 06:52 TSH 0.39 uIU/mL (0.27-4.20) 05/26/24 10:30 Urine Color Yellow (Yellow) 05/26/24 08:40 Urine Appearance Cloudy (CLEAR) A 05/26/24 08:40 Urine pH 5 (5-7) 05/26/24 08:40 Ur Specific [place] 1.020 (1.005-1.030) 05/26/24 08:40 Urine Protein 1+ (Negative) H 05/26/24 08:40 Urine Glucose (UA) Norm (Normal) 05/26/24 08:40 Urine Ketones 2+ (Negative) H 05/26/24 08:40 Urine Blood 2+ (Negative) H 05/26/24 08:40 Urine Nitrate Negative (Negative) 05/26/24 08:40 Urine Bilirubin Neg (Negative) 05/26/24 08:40 Urine Urobilinogen Neg mg/dL (Negative) 05/26/24 08:40 Ur Leukocyte Esterase 1+ (Negative) H 05/26/24 08:40 Urine RBC 0-4 /hpf (0-2) H 05/26/24 08:40 Urine WBC 25-40 /hpf (0-5) H 05/26/24 08:40 Ur Squamous Epith Cells 5-10 /hpf (0-5) H 05/26/24 08:40 Ur Transition Epith Cell 0-4 /hpf 05/26/24 08:40 Amorphous Sediment Not Reportable 05/26/24 08:40 Urine Bacteria 1+ /hpf (NONE) H 05/26/24 08:40 Urine Mucus 3+ /hpf 05/26/24 08:40 Urine Yeast 1+ /hpf H 05/26/24 08:40 Adenovirus (PCR) Not detected (NOT DETECT) 05/26/24 07:03 C. pneumoniae DNA (PCR) Not detected (NOT DETECT) 05/26/24 07:03 Coronavirus 229E (PCR) Not detected (NOT DETECT) 05/26/24 07:03 Human Metapneumovir PCR Detected (NOT DETECT) A 05/26/24 07:03 Influenza A (H1) PCR Not detected (NOT DETECT) 05/26/24 07:03 Influ A (H1/09) PCR Not detected (NOT DETECT) 05/26/24 07:03 Influenza A (H3) PCR Not detected (NOT DETECT) 05/26/24 07:03 Influenza Type A (PCR) Not detected (NOT DETECT) 05/26/24 07:03 Influenza Type B (PCR) Not detected (NOT DETECT) 05/26/24 07:03 M. pneumoniae (PCR) Not detected (NOT DETECT) 05/26/24 07:03 Parainfluenza 1 (PCR) Not detected (NOT DETECT) 05/26/24 07:03 Parainfluenza 2 (PCR) Not detected (NOT DETECT) 05/26/24 07:03 Parainfluenza 3 (PCR) Not detected (NOT DETECT) 05/26/24 07:03 Parainfluenza 4 (PCR) Not detected (NOT DETECT) 05/26/24 07:03 RSV Type A (PCR) Not detected (NOT DETECT) 05/26/24 07:03 RSV Type B (PCR) Not detected (NOT DETECT) 05/26/24 07:03 Entero/Rhino (PCR) Not detected (NOT DETECT) 05/26/24 07:03 SARS-CoV-2 (PCR) Not detected (NOT DETECT) 05/26/24 07:03 MRSA (PCR) Not detected (NOT DETECTED) 05/26/24 11:41 Vitals Last Vital Signs Temp 98.0 F 05/29/24 07:25 Pulse 96 05/29/24 07:25 Resp 16 05/29/24 07:25 BP 165/81 05/29/24 07:25 Pulse Ox 94 05/29/24 07:25 O2 Del Method Nasal Cannula 05/29/24 07:25 O2 Flow Rate 1 05/29/24 07:25 FiO2 40 05/26/24 10:41 Discharge Plan Discharge Patient Disposition: Home Condition: Stable Prescriptions: New aspirin 81 mg Tablet,Delayed Release (Dr/Ec) 81 mg PO DAILY Qty: 30 0RF atorvastatin 40 mg Tablet 40 mg PO BEDTIME Qty: 30 0RF levofloxacin 750 mg tablet 750 mg PO DAILY 7 Days Qty: 7 0RF prednisone 20 mg tablet 40 mg PO DAILY 4 Days Qty: 8 0RF Continued guaifenesin [Mucinex] 600 mg tablet extended release 12hr 600 mg PO QID PRN (Reason: Congestion) docusate sodium [Colace] 100 mg capsule 100 mg PO QID PRN (Reason: Constipation) montelukast [Singulair] 10 mg tablet 10 mg PO DAILY oxycodone 5 mg tablet 5 mg PO BID PRN (Reason: pain) 30 Days Qty: 60 0RF tizanidine 2 mg tablet 2 mg PO TID PRN (Reason: muscle spasticity) 30 Days Qty: 90 1RF pantoprazole 40 mg tablet,delayed release (DR/EC) 40 mg PO BID albuterol sulfate 2.5 mg /3 mL (0.083 %) solution for nebulization 2.5 mg INHALATION Q4H PRN (Reason: Shortness Of Breath) Narcan 4 mg/actuation spray,non-aerosol 4 mg intranasal Q3M PRN (Reason: opioid overdose) Qty: 1 3RF Rx Instructions: spray 1 dose into 1 nostril; alternate nostril w ea dose until help arrive alprazolam 0.5 mg tablet 0.25 mg PO TID PRN (Reason: anxiety) Qty: 45 3RF Rx Instructions: May take half tablet three times per day as needed for anxiety nitroglycerin 0.2 mg/hr patch 24 hour 1 patch transdermal Q24H Qty: 15 0RF Rx Instructions: allow nitrate-free interval of approx. 10-12 hrs per 24-hour period; Trelegy Ellipta 100-62.5-25 mcg blister with device 1 inh INHALATION DAILY Qty: 60 6RF Botox 100 unit recon soln 155 unit IM Q90D Qty: 2 0RF azelastine 137 mcg (0.1 %) aerosol,spray 1 spray intranasal BID PRN (Reason: Allergy Symptoms) Qty: 30 5RF Rx Instructions: administer into each nostril nitroglycerin 0.4 mg tablet, sublingual 0.4 mg SUBLINGUAL Q5M PRN (Reason: chest pain) Qty: 25 3RF levothyroxine 75 mcg tablet 37.5 mcg PO DAILY Patient Comments: . epinephrine 0.3 mg/0.3 mL auto-injector See Rx Instructions .ROUTE .COMPLEX Rx Instructions: INJECT DIRECTED NEEDED FOR ANAPHYLAXIS albuterol sulfate 90 mcg/actuation HFA aerosol inhaler 1 inh INHALATION DAILY lisinopril 40 mg tablet 40 mg PO DAILY Lexapro 5 mg tablet 15 mg PO QAM alendronate 70 mg tablet 70 mg PO Q7D Discontinued doxycycline hyclate 100 mg capsule 100 mg PO BID amoxicillin-pot clavulanate 875-125 mg tablet 1 tab PO BID Discharge Orders: Discharge Order (Routine); Ordered 05/29/24 Ordered By: Nate Fernandez Referrals: Miller Paredes DO [Primary Care Provider] - 4-7 days Discharge Diet: Cardiac Discharge Activity: Increase activity as tolerated Patient Instructions: Opioid Safety Activity Restrictions/Additional Instructions: May discharge following IV antibiotic today, and home oxygen evaluation. Follow-up with primary care provider 3 to 5 days Return for any concerns Take antibiotic for 7 days as instructed Discharge Attestations Time Spent in Discharge Care*: greater than 30 min Quality Metrics Clinical Quality Measures [ No reported AMI, CVA or VTE this stay] Coding Level of Care Code 47466 Total time (in minutes) for Discharge: 39 Diagnoses Pneumonia J18.9 COPD with acute exacerbation J44.1 Acute hypoxic respiratory failure J96.01
--- NOTE | 2024-05-29 09:08 | PC.NURSE ---
D/C pending transportation home. CM finding out if pt is able to receive a walker w/ seat.
== END 2024-05-29 11:30 | disposition home or self-care (01) | DRG 190 ==
LOC: ER 10:37 → ER IP 11:09 → MEDSURG 13:08
PROVIDERS: Admitting Provider Internal Medicine; Emergency Provider Family Medicine; PCP Internal Medicine; Visit Provider Internal Medicine
DX: J44.0 Chronic obstructive pulmonary disease with (acute) lower respiratory infection (principal); J18.9 Pneumonia, unspecified organism; J96.01 Acute respiratory failure with hypoxia; B97.81 Human metapneumovirus as the cause of diseases classified elsewhere; J44.1 Chronic obstructive pulmonary disease with (acute) exacerbation; Z87.891 Personal history of nicotine dependence; I10 Essential (primary) hypertension; E11.9 Type 2 diabetes mellitus without complications; I25.10 Atherosclerotic heart disease of native coronary artery without angina pectoris; Z85.118 Personal history of other malignant neoplasm of bronchus and lung; B96.5 Pseudomonas (aeruginosa) (mallei) (pseudomallei) as the cause of diseases classified elsewhere; B96.89 Other specified bacterial agents as the cause of diseases classified elsewhere; F41.1 Generalized anxiety disorder; F25.1 Schizoaffective disorder, depressive type
CPT/HCPCS: 36415; 36600; 71045; 71275; 80051; 80053; 81001; 82330; 82550; 82805; 83605; 83690; 83735; 84443; 84484; 85025; 87040; 87070; 87077; 87086; 87106; 87186; 87205; 87449; 87486; 87581; 87633; 87641; 93005; 94640; 94760; 96365; 96367; 96372; 96375; 99285; J1100; J1650; J1940; J1956; J2405; J2543; J2919; J3370; J7030; J7050; J7626; Q9967

== ENCOUNTER 2024-06-03 12:18 | Emergency (ER) | payer MEDICARE, MEDICAID, SELFPAY ==
--- NOTE | 2024-06-03 12:18 | ECG_ITS ---
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 Measurements Intervals [place] Rate: 86 P: 84 KS: 125 QRS: 50 QRSD: 125 T: 125 QT: 399 QTc: 479 Interpretive Statements SINUS RHYTHM LEFT BUNDLE BRANCH BLOCK [120+ ms QRS DURATION, 80+ ms Q/S IN V1/V2, 85+ ms R IN I/aVL/V5/V6] INTERPRETATION BASED ON A DEFAULT AGE OF 40 YEARS Compared to ECG 05/26/2024 09:20:22 No significant changes Electronically Signed On 06-03-2024 21:29:06 CDT by Gómez Hensley M.D. [id number] f
--- NOTE | 2024-06-03 12:23 | CT_ITS ---
WS: [id number] CT HEAD TECHNIQUE: Noncontrast CT of the head obtained from the skullbase to the vertex. CLINICAL INFORMATION: syncope COMPARISON: CT 2022 DLP: 1034.[address] scans at [facility] use at least one of these dose optimization techniques: automated e xposure control; mA and/or kV adjustment per patient size (includes targeted exams where dose is matc hed to clinical indication); or iterative reconstruction. FINDINGS: No evidence of intracranial hemorrhage or mass effect. Ventricular system and basal cisterns are jimenez nt. Mild small vessel changes with moderate parenchymal volume loss. 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 No extra-axial fluid collections. No evidence of mass or mass effect. Secretions in the RIGHT maxillary sinus and sphenoid sinuses. Mastoid air cells are well aerated. CT/CT head wo con* [id number] IMPRESSION: 1. No evidence of intracranial hemorrhage or mass effect. 2. Stable chronic infarct LEFT frontal lobe laterally with encephalomalacia 3. No acute intracranial findings.
--- NOTE | 2024-06-03 12:23 | XRR_ITS ---
PROCEDURE INFORMATION: Exam: XR Chest Exam date and time: 06/03/2024 12:27 PM Age: 74 years old Clinical indication: Shortness of breath; Prior surgery; Surgery date: 6+ months; Surgery type: Right lung; Patient HX: HX of lung cancer; Additional info: Syncope TECHNIQUE: Imaging protocol: Radiologic exam of the chest. Views: 1 view. COMPARISON: CT angio chest PE prot [id number] 05/26/2024 9:03 AM FINDINGS: Lungs: Unremarkable. No consolidation. Pleural spaces: There is right side apical pleural thickening. No pleural effusion. No pneumothorax. Heart/Mediastinum: Unremarkable. No cardiomegaly. Bones/joints: Unremarkable. XR/XR chest 1V portable [id number] IMPRESSION: 1. Right side apical pleural thickening 2. Otherwise No acute findings.
[2024-06-03 12:27] VITALS: BP 109/55; PULSE 89; RESP 21; TEMP 36.5; O2SAT 96; BMI 23.2
--- NOTE | 2024-06-03 12:27 | ED_ITS ---
HPI - Syncope 2 General: Chief Complaint: Syncope Stated Complaint: rapid response Time Seen by Provider: 06/03/24 12:22 Source: patient Mode of arrival: ambulatory Limitations: no limitations History of Present Illness: 74-year-old female with here after rapid response in cardiology clinic she was there for follow-up states she was not feeling well and had a syncopal event in the office. Patient is now awake and alert she denies any pain she denies chest pain or headache before or after. She had recently been hospitalized here with a pneumonia. Denies any vomiting or diarrhea. Associated symptoms: Deny abdominal pain, chest pain, fever(s), headache(s) or nausea Review of Systems 2 Const: Denies: fever(s), chills, body aches or change in appetite ENMT: Denies: throat pain or dental pain Card: Reports: syncope; Denies: chest pain Resp: Denies: dyspnea GI: Denies: abdominal pain, nausea, vomiting or diarrhea Musc: Denies: neck pain or back pain Skin/Breast: Denies: rash Neuro: Denies: headache(s) PFSH ED 2 PFSH: Medical History Lung cancer Essential hypertension Psychiatric care Hoarding behavior Other stressful life events affecting family and household Prinzmetal angina CAD (coronary artery disease) Opioid contract exists Encounter for long-term use of opiate analgesic 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 History of VT (myocardial infarction) History of CVA (cerebrovascular accident) Generalized anxiety disorder Schizoaffective disorder, depressive type Surgical History History of hysterectomy H/O heart surgery H/O section History of appendectomy H/O partial thyroidectomy Hx of cataract surgery Family History Other Diabetes Denies family history of Anesthesia complication Bleeding disorder Social History Smoking and tobacco/nicotine status: former use of tobacco/nicotine Quit status (tobacco/nicotine): has quit using Year quit tobacco: 2015 Former quit date comment: 2 PPD for 50 years Second hand smoke exposure: No Alcohol intake: never Substance/Drug Use: never Lives independently: Yes Household members: none Marital status: Current occupational status: disabled Do you think of yourself as: Straight/Heterosexual Current gender identity: Female Physical Exam 2 Const: COMMON NORMALS: patient oriented x3 HENMT: COMMON NORMALS: normocephalic and atraumatic HEAD & SCALP: n ormocephalic and atraumatic Eye: COMMON NORMALS: Equal, round and reactive pupils present and EOMs intact bilaterally PUPIL: Yes Equal, round and reactive pupils present Neck/C-Spine: COMMON NORMALS: full ROM and supple Chest: COMMONS NORMALS: normal inspection of the chest Resp: COMMON NORMALS: normal respiratory effort, No retractions, No use of accessory muscles and clear to auscultation bilaterally AUSCULTATION: clear to auscultation bilaterally Cardio: COMMON NORMALS: regular rate, regular rhythm and No murmurs present (Cardio) RATE: regular rate RHYTHM: regular rhythm GI: COMMON NORMALS: Normal to inspection, nondistended, normoactive bowel sounds present, Soft to palpation, non-tender and no masses PALPATION: Yes Soft to palpation Extremity: COMMON NORMALS: normal to inspection and full ROM Neuro: COMMON NORMALS: patient oriented x3, moves all extremities and no focal motor deficits MOTOR EXAM: 5/5 motor strength present throughout Psych: COMMON NORMALS: mental status grossly normal, Normal thought process present and cooperative THOUGHT PROCESS: Normal thought process present Skin: COMMON NORMALS: no rashes or lesions noted and no wounds GENERAL SKIN EXAM: no rashes or lesions noted Course 2 Vital Signs: Vital signs: Vital Signs Temperature 97.7 F 06/03/24 12:27 Pulse Rate 87 06/03/24 15:16 Respiratory Rate 21 H 06/03/24 12:27 Blood Pressure 167/67 06/03/24 15:16 Pulse Oximetry 98 06/03/24 15:16 Oxygen Delivery Me thod Nasal Cannula 06/03/24 14:16 Oxygen Flow Rate 2 06/03/24 12:27 MDM - Syncope Medical Decision Making Patient presents here with a syncopal event she has been well-appearing here orthostatics are normal imaging blood work here is all normal she feels improved like to go home I feel she is stable for discharge likely vagal response she is follow-up with PCP return if worsening. Medical Records I reviewed the patient's medical records. Lab Data I reviewed the patient's lab results. 06/03/24 12:36 06/03/24 12:36 Radiology Impressions Chest X-Ray 06/03/24 12:23 IMPRESSION: 1. Right side apical pleural thickening 2. Otherwise No acute findings. Head CT 06/03/24 12:23 IMPRESSION: 1. No evidence of intracranial hemorrhage or mass effect. 2. Stable chronic infarct LEFT frontal lobe laterally with encephalomalacia 3. No acute intracranial findings. Chest CTA 06/03/24 12:49 IMPRESSION: 1. No evidence of pulmonary embolus. 2. No acute pulmonary infiltrates. 3. Advanced chronic emphysematous changes. Laboratory Results WBC 19.26 10^3/uL (3.29-11.43) H 06/03/24 12:36 RBC 4.77 10^6/uL (3.85-5.65) 06/03/24 12:36 Hgb 13.80 g/dL (11.27-16.99) 06/03/24 12:36 Hct 43.1 % (36-47) 06/03/24 12:36 MCV 90.4 fl (85-98) 06/03/24 12:36 MCH 28.9 pg (27-33) 06/03/24 12:36 MCHC 32.0 g/dL (30-55) 06/03/24 12:36 RDW 12.2 % (12.1-15.1) 06/03/24 12:36 Plt Count 338 10^3/cmm (157-399) 06/03/24 12:36 MPV 8.6 fL (7.4-10.4) 06/03/24 12:36 Neut % (Auto) 73.3 % 06/03/24 12:36 Lymph % (Auto) 18.6 % 06/03/24 12:36 [place] % (Auto) 6.8 % 06/03/24 12:36 Eos % (Auto) 0.4 % 06/03/24 12:36 Baso % (Auto) 0.2 % 06/03/24 12:36 Neut # (Auto) 14.11 10^3/uL (1.8-7.7) H 06/03/24 12:36 Lymph # (Auto) 3.6 10^3/uL (0.8-4.8) 06/03/24 12:36 [place] # (Auto) 1.3 10^3/uL (0.2-0.9) H 06/03/24 12:36 Eos # (Auto) 0.1 10^3/uL (0.0-0.8) 06/03/24 12:36 Baso # (Auto) 0.0 10^3/uL (0.0-0.1) 06/03/24 12:36 Nucleated RBC % (auto) 0 % 06/03/24 12:36 Nucleated RBCs # 0.0 /100WBC 06/03/24 12:36 PT 12.80 SECONDS (12.1-14.9) 06/03/24 12:36 INR 0.93 (0.8-1.2) 06/03/24 12:36 Sodium 139 mmol/L (136-145) 06/03/24 12:36 Potassium 3.4 mmol/L (3.5-5.1) L 06/03/24 12:36 Chloride 98 mmol/L (98-107) 06/03/24 12:36 Carbon Dioxide 27 mmol/L (22-29) 06/03/24 12:36 Anion Gap 17.4 (5-19) 06/03/24 12:36 BUN 18 mg/dL (8-23) 06/03/24 12:36 Creatinine 1.0 mg/dL (0.5-0.9) H 06/03/24 12:36 GFR Calculation Not Reportable 06/03/24 12:36 Glucose 129 mg/dL (65-115) H 06/03/24 12:36 Calculated Osmolality 292 mOsm/kg (285-295) 06/03/24 12:36 Calcium 8.7 mg/dL (8.5-10.5) 06/03/24 12:36 Total Bilirubin 0.6 mg/dL (0.15-1.2) 06/03/24 12:36 AST 36 U/L (0-32) H 06/03/24 12:36 ALT 75 U/L (0-33) H 06/03/24 12:36 Alkaline Phosphatase 71 U/L (35-105) 06/03/24 12:36 Troponin T Baseline 30 ng/L (0-10) H 06/03/24 12:36 Troponin T 120 Minute 30.25 ng/L (0-10) H 06/03/24 14:48 Delta Troponin T 0.25 ABS# (0-10) 06/03/24 14:48 Total Protein 6.2 g/dL (6.6-8.7) L 06/03/24 12:36 Albumin 3.6 g/dL (3.5-5.2) 06/03/24 12:36 Globulin 2.6 g/dL (1.3-4.6) 06/03/24 12:36 Urine Color Yellow (Yellow) 06/03/24 14:06 Urine Appearance Clear (CLEAR) 06/03/24 14:06 Urine pH 6.5 (5-7) 06/03/24 14:06 Ur Specific [place] 1.005 (1.005-1.030) 06/03/24 14:06 Urine Protein Trace (Negative) 06/03/24 14:06 Urine Glucose (UA) Norm (Normal) 06/03/24 14:06 Urine Ketones Negative (Negative) 06/03/24 14:06 Urine Blood 2+ (Negative) H 06/03/24 14:06 Urine Nitrate Negative (Negative) 06/03/24 14:06 Urine Bilirubin Neg (Negative) 06/03/24 14:06 Urine Urobilinogen Norm mg/dL (Negative) 06/03/24 14:06 Ur Leukocyte Esterase Trace (Negative) H 06/03/24 14:06 Urine RBC None /hpf (0-2) 06/03/24 14:06 Urine WBC 5-10 /hpf (0-5) H 06/03/24 14:06 Ur Squamous Epith Cells 0-4 /hpf (0-5) H 06/03/24 14:06 Ur Transition Epith Cell 0-4 /hpf 06/03/24 14:06 Calcium Oxalate Crystal 0-4 /hpf H 06/03/24 14:06 Amorphous Sediment Not Reportable 06/03/24 14:06 Urine Bacteria None /hpf (NONE) 06/03/24 14:06 Urine Mucus Trace /hpf 06/03/24 14:06 All radiology interpretation(s) finalized by discharge EKG Data EKG 1: I personally reviewed and interpreted this EKG as follows: EKG interpretation date: 06/03/24 EKG interpretation time: 12:18 Interpretation: nsr hr 86 lbbb noqrs 125 qtc 443 no change from previous ekg Discharge Plan Discharge Patient Disposition: Home Clinical Impression: Syncope Condition: Stable Prescriptions: No Action guaifenesin [Mucinex] 600 mg tablet extended release 12hr 600 mg PO QID PRN (Reason: Congestion) docusate sodium [Colace] 100 mg capsule 100 mg PO QID PRN (Reason: Constipation) montelukast [Singulair] 10 mg tablet 10 mg PO DAILY oxycodone 5 mg tablet 5 mg PO BID PRN (Reason: pain) 30 Days Qty: 60 0RF tizanidine 2 mg tablet 2 mg PO TID PRN (Reason: muscle spasticity) 30 Days Qty: 90 1RF pantoprazole 40 mg tablet,delayed release (DR/EC) 40 mg PO BID albuterol sulfate 2.5 mg /3 mL (0.083 %) solution for nebulization 2.5 mg INHALATION Q4H PRN (Reason: Shortness Of Breath) Narcan 4 mg/actuation spray,non-aerosol 4 mg intranasal Q3M PRN (Reason: opioid overdose) Qty: 1 3RF Rx Instructions: spray 1 dose into 1 nostril; alternate nostril w ea dose until help arrive alprazolam 0.5 mg tablet 0.25 mg PO TID PRN (Reason: anxiety) Qty: 45 3RF Rx Instructions: May take half tablet three times per day as needed for anxiety Trelegy Ellipta 100-62.5-25 mcg blister with device 1 inh INHALATION DAILY Qty: 60 6RF Botox 100 unit recon soln 155 unit IM Q90D Qty: 2 0RF azelastine 137 mcg (0.1 %) aerosol,spray 1 spray intranasal BID PRN (Reason: Allergy Symptoms) Qty: 30 5RF Rx Instructions: administer into each nostril nitroglycerin 0.4 mg tablet, sublingual 0.4 mg SUBLINGUAL Q5M PRN (Reason: chest pain) Qty: 25 3RF nitroglycerin 0.1 mg/hr patch 24 hour 0.1 mg transdermal DAILY prednisone 20 mg tablet 40 mg PO DAILY levofloxacin 750 mg tablet 750 mg PO DAILY levothyroxine 75 mcg tablet 37.5 mcg PO DAILY Patient Comments: . epinephrine 0.3 mg/0.3 mL auto-injector See Rx Instructions .ROUTE .COMPLEX Rx Instructions: INJECT DIRECTED NEEDED FOR ANAPHYLAXIS albuterol sulfate 90 mcg/actuation HFA aerosol inhaler 1 inh INHALATION DAILY PRN (Reason: Shortness Of Breath) lisinopril 40 mg tablet 40 mg PO DAILY escitalopram oxalate [Lexapro] 5 mg tablet 15 mg PO QAM alendronate 70 mg tablet 70 mg PO Q7D Rx Instructions: ON SUNDAY atorvastatin 40 mg Tablet 40 mg PO BEDTIME Qty: 30 0RF aspirin 81 mg Tablet,Delayed Release (Dr/Ec) 81 mg PO DAILY Qty: 30 0RF Discharge Orders: Discharge ED (Routine); Ordered 06/03/24 Ordered By: Margarita Hernadez Referrals: Miller Paredes DO [Primary Care Provider] - 4-7 days Discharge Diet: Advance as tolerated Discharge Activity: Resume usual activity Patient Instructions: Syncope (ED) Coding Level of Care Code ED Jack Spooler Tender for [facility]
[2024-06-03 12:34] VITALS: BP 101/54; PULSE 91; O2SAT 96
[2024-06-03 12:43] LABS: Basophils % 0.2 %; Eosinophils # 0.1 10^3/uL (0.0-0.8); Eosinophils % 0.4 %; Hematocrit 43.1 % (36-47); Lymphocytes # 3.6 10^3/uL (0.8-4.8); Lymphocytes % 18.6 %; Mean Corpuscular Hemoglobin 28.9 pg (27-33); Mean Corpuscular Volume 90.4 fl (85-98); Mean Platelet Volume 8.6 fL (7.4-10.4); Monocytes # 1.3 10^3/uL (0.2-0.9); Monocytes % 6.8 %; Neutrophils # 14.11 10^3/uL (1.8-7.7); Neutrophils % 73.3 %; Nucleated Red Blood Cells % 0 %; Platelet Count 338 10^3/cmm (157-399); Red Blood Count 4.77 10^6/uL (3.85-5.65); Red Cell Distribution Width 12.2 % (12.1-15.1); White Blood Count 19.26 10^3/uL (3.29-11.43)
--- NOTE | 2024-06-03 12:49 | CT_ITS ---
WS: [id number] CTA OF THE CHEST WITH PULMONARY EMBOLISM PROTOCOL TECHNIQUE: High-resolution contrast enhanced CTA of the chest with coronal and sagittal reformatted i mages with pulmonary embolism protocol. MIP images are also reviewed. CLINICAL INFORMATION: syncope COMPARISON: CTA 05/26/2024 DLP: 212.[address] scans at [facility] use at least one of these dose optimization techniques: automated e xposure control; mA and/or kV adjustment per patient size (includes targeted exams where dose is matc hed to clinical indication); or iterative reconstruction. FINDINGS: Proximal main pulmonary arteries are normal. No evidence of pulmonary embolus. . Chronic RIGHT rib fractures with callus formation. Pleural parenchymal scarring in the RIGHT upper lobe. Advanced chronic emphysematous changes. A few calcified granulomas. Previously described infilt rates have improved compared to 05/26/2024. No focal pneumonia or pleural fluid today. Normal caliber thoracic aorta. Aortic calcification. No mediastinal or hilar lymphadenopathy. Calcifi ed subcarinal lymph nodes. Small esophageal hiatal hernia. Stable nodular LEFT adrenal gland. Cholecy stectomy clips.Prior RIGHT thyroidectomy. Nodular LEFT thyroid. No axillary lymphadenopathy. CT/CT angio chest PE protcl [id number] IMPRESSION: 1. No evidence of pulmonary embolus. 2. No acute pulmonary infiltrates. 3. Advanced chronic emphysematous changes.
[2024-06-03 13:04] LABS: Alanine Aminotransferase 75 U/L (0-33); Albumin Level 3.6 g/dL (3.5-5.2); Alkaline Phosphatase 71 U/L (35-105); Anion Gap 17.4 (5-19); Aspartate Amino Transferase 36 U/L (0-32); Blood Urea Nitrogen 18 mg/dL (8-23); Calcium 8.7 mg/dL (8.5-10.5); Carbon Dioxide 27 mmol/L (22-29); Chloride 98 mmol/L (98-107); Creatinine Clr Calc Pharmacy 41.3756; Globulin 2.6 g/dL (1.3-4.6); Glucose 129 mg/dL (65-115); Osmolality Calculated 292 mOsm/kg (285-295); Potassium 3.4 mmol/L (3.5-5.1); Sodium 139 mmol/L (136-145); Total Bilirubin 0.6 mg/dL (0.15-1.2); Total Protein 6.2 g/dL (6.6-8.7); Troponin(5th) Baseline 30 ng/L (0-10)
[2024-06-03 13:08] LABS: INR 0.93 (0.8-1.2)
[2024-06-03 13:44] VITALS: BP 130/55; BP 130/60; BP 134/59; PULSE 84; PULSE 87; PULSE 93
[2024-06-03] MEDS: iohexol 350 mg/mL 500 mL Btl (per mL) IV (13:45)
[2024-06-03 14:16] VITALS: BP 147/69; PULSE 88; O2SAT 99
--- NOTE | 2024-06-03 14:23 | ECG_ITS ---
[facility] Test Date: 2024-06-03 Pat Name: Kalyani Cassidy Department: Room: Gender: Female Digital Content Coordinator: : 1950 Requested By: Margarita Hernadez Order Number: [id number] Julia MD: Gómez Hensley M.D. Measurements Intervals [place] Rate: 85 P: 82 MI: 148 QRS: 56 QRSD: 134 T: 173 QT: 415 QTc: 496 Interpretive Statements SINUS RHYTHM INTRAVENTRICULAR CONDUCTION DELAY [130+ ms QRS DURATION] SEPTAL MYOCARDIAL INFARCTION , OF INDETERMINATE AGE [40+ ms Q WAVE IN V1/V2] Compared to ECG 06/03/2024 12:18:44 Intraventricular conduction delay now present Myocardial infarct finding now present Left bundle-branch block no longer present Electronically Signed On 06-03-2024 21:38:26 CDT by Gómez Hensley M.D. [id number]
[2024-06-03 14:24] LABS: Specific Gravity, Urine 1.005 (1.005-1.030); Urine Appearance Clear (CLEAR); Urine Color Yellow (Yellow); pH Urine 6.5 (5-7)
[2024-06-03 14:25] LABS: Add Urine Microscopic? YES; Bilirubin Urine Neg (Negative); Blood Urine 2+ (Negative); Glucose Urine UA Norm (Normal); Ketones Urine Negative (Negative); Leukocyte Esterase Urine Trace (Negative); Nitrate Urine Negative (Negative); Protein Urine Trace (Negative); Urobilinogen Urine Norm (Negative)
[2024-06-03 14:41] LABS: Squamous Epithelial Cell Urine 0-4 /hpf (0-5); Transitional Epi Cells Urine 0-4 /hpf
[2024-06-03 14:42] LABS: Add Urine Culture? No; Calcium Oxalate Crystals Urine 0-4 /hpf; Mucus Urine TRACE /hpf
[2024-06-03 15:12] LABS: Troponin 5 2HR 30.25 ng/L (0-10); Troponin 5 2HR Delta 0.25 ABS# (0-10)
[2024-06-03 15:16] VITALS: BP 167/67; PULSE 87; O2SAT 98
[2024-06-03 15:57] VITALS: BP 167/67; PULSE 87; RESP 21; TEMP 36.5; O2SAT 98
[2024-06-03 17:48] LABS: Glucose Point of Care 115 mg/dL (70-110)
== END 2024-06-03 15:59 | disposition home or self-care (01) ==
PROVIDERS: Emergency Provider Emergency Medicine; PCP Internal Medicine
DX: R55 Syncope and collapse (principal); I44.7 Left bundle-branch block, unspecified; Z79.82 Long term (current) use of aspirin; Z87.891 Personal history of nicotine dependence; Z85.118 Personal history of other malignant neoplasm of bronchus and lung; I10 Essential (primary) hypertension; I25.10 Atherosclerotic heart disease of native coronary artery without angina pectoris; I25.2 Old myocardial infarction; Z86.73 Personal history of transient ischemic attack (TIA), and cerebral infarction without residual deficits
CPT/HCPCS: 36416; 70450; 71045; 71275; 80053; 81001; 82962; 84484; 85025; 85610; 93005; 99285; Q9967

== ENCOUNTER 2024-06-24 09:32 | Outpatient (CLI) | payer MEDICARE, MEDICAID, SELFPAY ==
--- NOTE | 2024-06-24 09:47 | MM_ITS ---
WS: [id number] DIAGNOSTIC BILATERAL DIGITAL BREAST TOMOSYNTHESIS MAMMOGRAPHY WITH CAD RIGHT breast ultrasound, limited. HISTORY: INCONCLUSIVE MAMMOGRAM COMPARISON: 10/23/2023, 05/31/2022, 05/05/2022, 12/10/2020 TECHNIQUE: Bilateral craniocaudad, mediolateral oblique, and mediolateral views are submitted with to mosynthesis and SM. Spot compression RIGHT MLO. Computer aided detection utilized. Breast composition: There are scattered areas of fibroglandular density. There are numerous bilateral masses and calcifications within each breast. Reidentified is the oil cyst in the upper outer quadra nt of the RIGHT breast. The previously identified and described palpable mass is not definitely visua lized by mammography. The palpable mass may be one of the calcifications. There are vascular calcific ations. No increase in size of any of the pulmonary nodules or masses. RIGHT breast ultrasound, limited. Palpable area of in the RIGHT breast at 10:00 does shadow. This is adjacent to the oil cyst and is a calcification seen on mammography. There is no solid mass. This area of calcification measures 0.2 x 0.3 x 0.3 cm. MM/[place] [id number] IMPRESSION: BI-RADS: 2-Benign FOLLOW UP: 1 Year Follow-up Return to annual screening mammography. Palpable area in the RIGHT breast corre sponds to a benign calcification.
--- NOTE | 2024-06-24 10:44 | US_ITS ---
WS: [id number] DIAGNOSTIC BILATERAL DIGITAL BREAST TOMOSYNTHESIS MAMMOGRAPHY WITH CAD RIGHT breast ultrasound, limited. HISTORY: INCONCLUSIVE MAMMOGRAM COMPARISON: 10/23/2023, 05/31/2022, 05/05/2022, 12/10/2020 TECHNIQUE: Bilateral craniocaudad, mediolateral oblique, and mediolateral views are submitted with to mosynthesis and SM. Spot compression RIGHT MLO. Computer aided detection utilized. Breast composition: There are scattered areas of fibroglandular density. There are numerous bilateral masses and calcifications within each breast. Reidentified is the oil cyst in the upper outer quadra nt of the RIGHT breast. The previously identified and described palpable mass is not definitely visua lized by mammography. The palpable mass may be one of the calcifications. There are vascular calcific ations. No increase in size of any of the pulmonary nodules or masses. RIGHT breast ultrasound, limited. Palpable area of in the RIGHT breast at 10:00 does shadow. This is adjacent to the oil cyst and is a calcification seen on mammography. There is no solid mass. This area of calcification measures 0.2 x 0.3 x 0.3 cm. US/US breast RT limited* [id number] IMPRESSION: BI-RADS: 2-Benign FOLLOW UP: 1 Year Follow-up Return to annual screening mammography. Palpable area in the RIGHT breast corre sponds to a benign calcification.
== END 2024-06-24 09:33 | disposition home or self-care (01) ==
PROVIDERS: PCP Internal Medicine; Visit Provider Internal Medicine
DX: R92.2 Inconclusive mammogram (principal); R92.323 Mammographic fibroglandular density, bilateral breasts; R92.1 Mammographic calcification found on diagnostic imaging of breast; N60.01 Solitary cyst of right breast
CPT/HCPCS: 76642; 77062; G0279

== ENCOUNTER → 2024-07-10 09:30 | Outpatient (BNVA) | payer SELFPAY | PROVIDERS: PCP Internal Medicine; Visit Provider Nurse Practitioner Psychiatric/Mental Health | DX: F41.1 Generalized anxiety disorder (principal); F42.3 Hoarding disorder | CPT/HCPCS: 80061; 83036 ==

== ENCOUNTER → 2024-07-24 10:41 | Outpatient (BNVA) | payer MEDICARE, SELFPAY | PROVIDERS: PCP Internal Medicine; Visit Provider Specialist | DX: G43.711 Chronic migraine without aura, intractable, with status migrainosus (principal); Z86.73 Personal history of transient ischemic attack (TIA), and cerebral infarction without residual deficits | CPT/HCPCS: 64615 ==

== ENCOUNTER → 2024-10-31 09:55 | Outpatient (BNVA) | payer MEDICARE, MEDICAID, SELFPAY ==
[2024-08-12 11:23] VITALS: BP 143/61; BMI 33.8
== END ==
PROVIDERS: PCP Internal Medicine; Visit Provider Specialist
DX: G43.711 Chronic migraine without aura, intractable, with status migrainosus (principal); Z86.73 Personal history of transient ischemic attack (TIA), and cerebral infarction without residual deficits; R91.8 Other nonspecific abnormal finding of lung field
CPT/HCPCS: 64615; 99212

== ENCOUNTER 2024-11-10 12:47 | Oncology outpatient (recurring) (ONCR) | payer MEDICARE, MEDICAID, SELFPAY ==
[2024-08-12 11:23] VITALS: BP 143/61; BMI 33.8
--- NOTE | 2024-10-24 13:30 | CT_ITS ---
WS: [id number] CT chest w con* [id number] HISTORY: FU lung cancer TECHNIQUE: Axial imaging performed through the thorax. Coronal and sagittal reformats are submitted. [facility] use at least one of these dose optimization techniques: automated exposure control; mA and/or kV adjustment per patient size (includes targeted exams where dose is mat ched to clinical indication); or iterative reconstruction. CONTRAST: Omnipaque 350; 100 mL IV. DLP: 230.87 mGy.cm COMPARISON: 06/03/2024, 05/26/2024, 04/23/2024 Lungs and central airway: Marked pulmonary hyperexpansion and emphysema. Reidentified is the marked t hick pleural thickening in the posterior RIGHT upper thorax. Pleural thickening measures 7.8 x 1.8 cm and is very similar to the most recent exams. The adjacent ribs have sclerotic and lytic changes whi ch are also stable. Benign calcified granuloma LEFT lower lobe. New increasing consolidation at the RIGHT lung base. Ther e is interstitial thickening and mild bronchiectasis. Linear nodularity that is most consolidated ashlie sures 2.5 x 1.2 cm. Pleura: Small RIGHT pleural effusion. RIGHT pleural effusion is new. No LEFT effusion. Heart and pericardium: Normal size heart with no pericardial effusion. Mediastinum and jose carlos: No mediastinum or hilar adenopathy. Vessels: Moderate atherosclerosis aorta. Normal size pulmonary artery. Chest wall and lower neck: No soft tissue masses. Upper abdomen: Area of decreased attenuation in the central RIGHT lobe of the liver measures 1.6 x 1. 0 cm. This has been present on prior studies and may be a small hemangioma. No new hepatic mass. Prio r cholecystectomy. Osseous structures: Increase in thoracic kyphosis. Bones are osteopenic. CT/CT chest w con* [id number] IMPRESSION: 1. Marked pleural thickening in the posterior RIGHT upper lobe without obvious progression since 06/03/2024. Mixed sclerotic and lytic changes in the adjacent RIGHT upper lobe ribs. This may all be posttreatment fibrosis. Pleural thicken ing has been stable for several prior examinations. 2. New subsolid consolidation at the RIGHT lung base. There is a small associa david RIGHT pleural effusion. This may be pneumonia or pneumonitis. Metastatic di sease should not be excluded. This can be further evaluated by PET/CT imaging o r short-term follow-up chest CT after treatment for pneumonia. 3. Severe emphysema. 4. No mediastinal or hilar adenopathy.
[2024-10-24 14:14] LABS: Blood Urea Nitrogen 8 mg/dL (8-23)
[2024-10-24] MEDS: iohexol 350 mg/mL 500 mL Btl (per mL) IV (15:47)
--- NOTE | 2024-11-10 14:06 | ONCRAD EPV_ITS ---
Radiation Oncology Established Patient Visit Patient: Kalyani Cassidy [id number] : 1950 Age: 74 Sex: Female Dictated by: Dr. Dia Sorenson Date of Service: 11/10/2024 Referring Physician(s) : Shara Nguyen Diagnosis: C34.11 - Malignant neoplasm of upper lobe, right bronchus or lung, Diagnosed 11/25/2020 (Active) Stage IA3, T1c, N0, M0 Radiotherapy to Date: Course: Lung - SABR 2020, Treatment Site: Lung Ca, Ref. ID: [id number], Energy: 6X, Dose/Fx (cGy): 1,800, #Fx: 3 / 3, Dose Correction (cGy): 0, Total Dose Delivered (cGy): 5,400, Start Date: 02/07/2021, End Date: 02/11/2021, Elapsed Days: 4 Current History: Patient is doing fairly well. She says she has noticed her respiratory status has declined a little bit since I saw her this summer. She did visit with her new engineering production worker. She has pulmonary function test scheduled next month. She otherwise has a good appetite. She denies any new aches or pains. She did have trouble with Levaquin giving her significant and severe nausea and vomiting. She was not able to eat for 24 hours after [address] scan done and I gave her those results today Current Medications: Albuterol Sulfate, aLPRAZolam, amLODIPine Besylate, cVS Mucus Extended Release, cVS Stool Softener, daliresp, escitalopram Oxalate, euthyrox, hYDROcodone-Acetaminophen, meclizine HCl, montelukast Sodium, naproxen, nitro-Dur, pantoprazole Sodium, tiZANidine HCl, traMADol HCl, trelegy Ellipta. Allergies: peanuts and bee stings. Current Complaints / Review of Systems: . Vital Signs: Performed on 11/10/2024 1:18 PM BMI - 23.052 kg/m2 (high), Height - 61 in, Weight - 122 lbs, Temperature - 97.1 f, Pulse - 113 /min (high), Respiration - 18 /min, O2 Sat - 96 %, Pain - 8, Fatigue - 5 and BP - 122/ 55 mm(hg)(/low). Physical Exam: General: Alert and oriented x 3. No acute distress. HEENT: Normocephalic atraumatic. Pupils are equal extraocular muscles intact. LUNGS: Respiratory rate is regular nonlabored. HEART: Regular rate and rhythm. ABDOMEN: Abdomen is fairly thin with minimal adipose tissue EXTREMITIES: No peripheral edema is identified NEUROLOGIC: Alert and orient x 3. Gait and speech within normal limits. Performance Status: 80 Lab: None pending. Pathology: Primary, c34.11 - malignant neoplasm of upper lobe, right bronchus or lung, Diagnosed 11/25/2020 (active) stage ia3, t1c, n0, m0. Imaging: See HPI Impression: Status post SBRT for lung cancer Plan at this point she is now 3-1/2 years out from her SBRT. Her scans have been mostly stable. She did have some changes consistent with treatment and also some changes consistent with possible pneumonitis. At this point we talked about getting a 3-month scan and she was in agreement with this. She will keep her appointments with her engineering production worker and will otherwise see her back in 3 months with her scan Signed by: 11/10/2024 2:05:55 PM <<Signature on File>> Time spent with patient:25 CPT Code: CPT Code:
== END 2024-11-18 23:59 | disposition home or self-care (01) ==
PROVIDERS: PCP Internal Medicine; Visit Provider Radiology Radiation Oncology
DX: C34.11 Malignant neoplasm of upper lobe, right bronchus or lung (principal); Z92.3 Personal history of irradiation
CPT/HCPCS: 71260; 82565; 84520; 99213

== ENCOUNTER → 2024-12-15 08:45 | Outpatient (BNVA) | payer MEDICARE, MEDICAID, SELFPAY ==
[2024-08-12 11:23] VITALS: BP 143/61; BMI 33.8
== END ==
PROVIDERS: PCP Internal Medicine; Visit Provider Podiatrist Foot & Ankle Surgery
DX: R09.89 Other specified symptoms and signs involving the circulatory and respiratory systems (principal); I73.9 Peripheral vascular disease, unspecified; L60.3 Nail dystrophy
CPT/HCPCS: 11721

== ENCOUNTER → 2025-01-27 15:58 | Outpatient (BNVA) | payer MEDICARE, MEDICAID, SELFPAY ==
[2024-08-12 11:23] VITALS: BP 143/61; BMI 33.8
== END ==
PROVIDERS: PCP Internal Medicine; Visit Provider Internal Medicine Cardiovascular Disease
DX: I25.10 Atherosclerotic heart disease of native coronary artery without angina pectoris (principal); I10 Essential (primary) hypertension; Z85.118 Personal history of other malignant neoplasm of bronchus and lung; Z87.891 Personal history of nicotine dependence; I25.2 Old myocardial infarction
CPT/HCPCS: 99214

== ENCOUNTER → 2025-01-30 10:38 | Outpatient (BNVA) | payer MEDICARE, MEDICAID, SELFPAY ==
[2024-08-12 11:23] VITALS: BP 143/61; BMI 33.8
== END ==
PROVIDERS: PCP Internal Medicine; Visit Provider Specialist
DX: G43.711 Chronic migraine without aura, intractable, with status migrainosus (principal); Z86.73 Personal history of transient ischemic attack (TIA), and cerebral infarction without residual deficits; R91.8 Other nonspecific abnormal finding of lung field
CPT/HCPCS: 64615; J9999

== ENCOUNTER → 2025-03-17 08:54 | Outpatient (BNVA) | payer MEDICARE, MEDICAID, SELFPAY ==
[2024-08-12 11:23] VITALS: BP 143/61; BMI 33.8
== END ==
PROVIDERS: PCP Internal Medicine; Visit Provider Podiatrist Foot & Ankle Surgery
DX: L60.3 Nail dystrophy (principal); E11.8 Type 2 diabetes mellitus with unspecified complications; R09.89 Other specified symptoms and signs involving the circulatory and respiratory systems; I73.9 Peripheral vascular disease, unspecified
CPT/HCPCS: 11721

== ENCOUNTER 2025-03-18 10:03 | Oncology outpatient (recurring) (ONCR) | payer MEDICARE, MEDICAID, SELFPAY ==
[2024-08-12 11:23] VITALS: BP 143/61; BMI 33.8
--- NOTE | 2025-02-23 09:00 | CT_ITS ---
WS: [id number] CT chest w con* [id number] HISTORY: lung ca sp sbrt TECHNIQUE: Axial imaging performed through the thorax. Coronal and sagittal reformats are submitted. All CT scans at [facility] use at least one of these dose optimization techniques: automated exposure control; mA and/or kV adjustment per patient size (includes targeted exams where dose is matched to clinical indication); or iterative reconstruction. CONTRAST: Omnipaque 350; 100 mL IV. DLP: 195.69 mGy.cm COMPARISON: 10/24/2024, 06/03/2024, 04/23/2024, 05/30/2021 Lungs and central airway: Mild pulmonary hypertension expansion from emphysema. Marked pleural thickening in the posterior RIGHT upper thorax measures 7.5 x 1.5 cm. No change since the study from 10/24/2024. There is been no improvement but no obvious progression either. Stable small nodules throughout the LEFT lung. Benign granuloma RIGHT lower lobe. Pleural nodule LEFT lower lobe is stable. Pleura: See above. Heart and pericardium: Normal size heart with no pericardial effusion. Mediastinum and jose carlos: No mediastinum or hilar adenopathy. Vessels: Moderate atherosclerotic plaque aorta. Normal size pulmonary artery. Chest wall and lower neck: Densely calcified LEFT thyroid nodule is stable. Upper abdomen: Small hiatal hernia. Low-attenuation masses within the liver are stable since 2020. Thickening of the LEFT adrenal gland unchanged since the most recent exams. Normal RIGHT adrenal gland. Osseous structures: Destructive sclerotic changes involving several ribs in the posterior RIGHT upper thorax associated with the pleural mass. No interval change. These findings within the ribs are probably related to prior treatment of the pleural-based neoplasm. Increase in thoracic kyphosis. CT/CT chest w con* [id number] IMPRESSION: 1. No interval change in the marked pleural thickening in the posterior RIGHT upper thorax now measuring 7.5 x 1.5 cm. Adjacent mixed density within the ribs . These findings are related to treated neoplasm. There has been no obvious pavel nge over the most recent exams. 2. No mediastinal or hilar adenopathy. 3. No new pulmonary mass or nodule. 4. LEFT adrenal gland thickening. Similar to the most recent studies. 5. Stable masses within the liver. 6. Severe emphysema.
[2025-02-23 09:30] LABS: Blood Urea Nitrogen 7 mg/dL (8-23)
[2025-02-23] MEDS: iohexol 350 mg/mL 500 mL Btl (per mL) IV (09:38)
--- NOTE | 2025-03-18 10:41 | ONCRAD EPV_ITS ---
Radiation Oncology Established Patient Visit Patient: Ange Auguste [id number] : 1950> Age: 74> Sex: Female> Dictated by: Zak Adam Date of Service: 03/18/2025 Referring Physician(s) : Shara Nguyen Diagnosis: C34.11 - Malignant neoplasm of upper lobe, right bronchus or lung, Diagnosed 11/25/2020 (Active) Stage IA3, T1c, N0, M0 Lung cancer. This is a 70-year-old woman with newly diagnosed lung cancer. She has COPD and she had been referred to a tenter frame operator about a year ago. On her follow-up visit in August [address] reported a new slightly spiculated pleural-based nodule in the right upper lobe measuring 2.2 x 1.1 cm. The appearance was suspicious for malignancy. Other small nodules in the left lung appeared stable. An 8 mm precarinal lymph node appeared stable. Calcified subcarinal lymph nodes appeared consistent with old granulomatous disease. Further evaluation with PET/CT on 10/06/2020 showed FDG avid dominant mass in the posterior right upper lobe measuring 1.6 x 2.1 cm, SUV 15.8, consistent with primary lung cancer. Other subcentimeter nodules were FDG negative. There were no other areas of abnormal uptake noted on that study. She underwent CT directed needle biopsy of the right upper lobe mass on 11/25/2020. Pathology showed scant poorly differentiated carcinoma. The reported differential included but was not limited to small cell carcinoma or basaloid squamous cell carcinoma. There was insufficient tissue available for further analysis. She is seen now for further management. She has not had good energy lately, as she unfortunately has been suffering significant depression due to her significant other having recently of cancer. Her ECOG score is 1. Her appetite has been good and her weight has been stable. She has not had fever. She does report having some hot flashes and sweating. She sometimes has sore throat or difficulty swallowing, attributable to her inhalers. She has shortness of breath, but she does not complain of cough. She sometimes has chest pain. She reports having some acid reflux. She has no other GI or complaints. She has some chronic back pain and she also has arthritis pain in her knees. She has chronic migraine, for which she has been getting Botox injections. 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 Radiotherapy to Date: Course: Lung - SABR 2020, Treatment Site: Lung Ca, Ref. ID: [id number], Energy: 6X, Dose/Fx (cGy): 1,800, #Fx: 3 / 3, Dose Correction (cGy): 0, Total Dose Delivered (cGy): 5,400, Start Date: 02/07/2021, End Date: 02/11/2021, Elapsed Days: 4 Current History: 03/18/2025--this is a pleasant 74-year-old female who is now 4.1 years s/p SBRT to the RUL. She received a total dose of 5400 cGy in 3 fractions completing this on 02/11/2021. Review of records suggest that patient had a 1.6 x 2.1 cm tumor with an SUV of 15.8 in November 2020. Patient has good days and bad days. She has been intermittently on nasal O2 at 2 L/min since April 2024. Denies any hemoptysis or new bony pain. CT CHEST on 02/23/2025 shows entire stable disease. Marked pleural thickening is stable in the posterior right upper thorax measuring 7.5 x 1.5 cm. There is no abnormal lymphadenopathy or new pulmonary masses. Left adrenal gland thickening similar to most recent studies. There is also stable masses in the liver and patient exhibits severe emphysema. Current Medications: Albuterol Sulfate, aLPRAZolam, amLODIPine Besylate, cVS Mucus Extended Release, cVS Stool Softener, daliresp, escitalopram Oxalate, euthyrox, hYDROcodone-Acetaminophen, meclizine HCl, montelukast Sodium, naproxen, nitro-Dur, pantoprazole Sodium, tiZANidine HCl, traMADol HCl, trelegy Ellipta. Allergies: peanuts and bee stings. Current Complaints / Review of Systems: As noted above Vital Signs: Performed on 03/18/2025 10:16 AM BMI - 22.712 kg/m2, Height - 61 in, Weight - 120.2 lbs, Temperature - 97 f, Pulse - 81 /min, Respiration - 18 /min, O2 Sat - 92 % (low), Pain - 4, Fatigue - 0 and BP - 157/ 66 mm(hg)(high/). Physical Exam: General: Alert and oriented x 3. No acute distress. HEENT: Normocephalic, atraumatic. Extraocular Movements Intact: Pupils Equal, Round, Reactive to Light and Accommodation: Sclerae anicteric. Oral cavity is clear without lesions, masses or ulcers. NECK: Supple without supraclavicular or jugular lymphadenopathy. LUNGS: Clear to auscultation bilaterally without rales, rhonchi or wheeze. No intercostal retraction. Nasal O2 2 L/min. HEART: Regular rate and rhythm, normal S1 and S2 without murmur, gallop or rub. MUSCULOSKELETAL: No tenderness or percussion pain over the axial skeleton, scapulae or pelvis. ABDOMEN: Soft, nontender, nondistended without masses or organomegaly. Bowell sounds are present. EXTREMITIES: No peripheral edema is identified. Limited motor and sensory examination are grossly intact and symmetric bilaterally. NEUROLOGIC: Cranial nerves II ???XII are grossly intact. Normal sensation, strength 5/5 in all extremities, normal gait, no ataxia. Performance Status: KPS 70 Lab: None pending. Pathology: Primary, c34.11 - malignant neoplasm of upper lobe, right bronchus or lung, Diagnosed 11/25/2020 (active) stage ia3, t1c, n0, m0. Imaging: See HPI Impression: Stable RUL carcinoma Stable pulmonary disease. RTC in 6 months or sooner if need be. CT CAP chest prior to next visit. Signed by: 03/18/2025 10:39:59 AM <<Signature on File>> Time spent with patient: 30 MINUTES CPT Code: CPT Code:
== END 2025-03-18 23:59 | disposition home or self-care (01) ==
PROVIDERS: Radiology Radiation Oncology; PCP Physician Assistant; Visit Provider Radiology Radiation Oncology
DX: C34.11 Malignant neoplasm of upper lobe, right bronchus or lung (principal); Z92.3 Personal history of irradiation
CPT/HCPCS: 71260; 82565; 84520; 99214

== ENCOUNTER → 2025-05-11 14:21 | Outpatient (BNVA) | payer MEDICARE, MEDICAID, SELFPAY ==
[2024-08-12 11:23] VITALS: BP 143/61; BMI 33.8
== END ==
PROVIDERS: PCP Internal Medicine; Visit Provider Specialist
DX: G43.711 Chronic migraine without aura, intractable, with status migrainosus (principal)
CPT/HCPCS: 64615; J9999

== ENCOUNTER → 2025-06-16 07:58 | Outpatient (BNVA) | payer MEDICARE, MEDICAID, SELFPAY ==
[2024-08-12 11:23] VITALS: BP 143/61; BMI 33.8
== END ==
PROVIDERS: PCP Internal Medicine; Visit Provider Podiatrist Foot & Ankle Surgery
DX: E11.8 Type 2 diabetes mellitus with unspecified complications (principal); L60.3 Nail dystrophy; R09.89 Other specified symptoms and signs involving the circulatory and respiratory systems; I73.9 Peripheral vascular disease, unspecified
CPT/HCPCS: 11721

== ENCOUNTER 2025-06-20 15:47 | Emergency (ER) | payer MEDICARE, MEDICAID, SELFPAY ==
[2024-08-12 11:23] VITALS: BP 143/61; BMI 33.8
--- OUTSIDE RECORDS SUMMARY | 2025-06-20 15:51 | XMS_ITS | Encounter Summary ---
Author Organization [facility] Address [address] [place] [address] Care Team Providers Care Licensed Esthetician Name Role Phone [facility], External Provider Primary Care Provider +1- [phone] Encounter Details Date Type Department Care Team (Latest Contact Info) Description 09/15/2005 Outpatient Historical [facility] [place] [facility] [place] [address] [place] [phone] Geo Peck MD NO ADDRESS ON FILE ABDOMINAL PAIN EPIGASTRIC (Primary Dx) Social History Tobacco Use Types Packs/Day Years Used Date Smoking Tobacco: Never Assessed Comments Unknown Sex and Gender Information Value Date Recorded Sex Assigned at Not on file 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
--- OUTSIDE RECORDS SUMMARY | 2025-06-20 15:51 | XMS_ITS | Encounter Summary ---
Author Organization [facility] Address [address] [place] [address] Care Team Providers Care Joint Creaser Name Role Phone [facility], External Provider Primary Care Provider +1- [phone] Encounter Details Date Type Department Care Team (Latest Contact Info) Description 11/27/2006 Outpatient Historical [facility]- [place] [address] [place] [phone] Geo Peck MD NO ADDRESS ON FILE Esophageal Reflux (Primary Dx); Dyspepsia and Other Specified Disorders of Function of Stomach Social History Tobacco Use Types Packs/Day Years Used Date Smoking Tobacco: Never Assessed Comments Unknown Sex and Gender Information Value Date Recorded Sex Assigned at Not on file 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
--- OUTSIDE RECORDS SUMMARY | 2025-06-20 15:51 | XMS_ITS | Encounter Summary ---
Author Organization [facility] Address [address] [place] [address] Care Team Providers Care Cookie Mixer Helper Name Role Phone [facility], External Provider Primary Care Provider [phone]- [phone] Reason for Referral * Outpatient Services (Routine) - Closed Specialty Diagnoses / Procedures Referred By Dipesh bo Referred To Contact Diagnoses Claudication Procedures US ARTERIAL W SEG PRES LOWER EXERCISE Robert Hdez MD [address] [place] [address] Phone: tel: fax: Referral ID Status Reason Start Date Expiration Date Visits Re quested Visits Authorized [id number] Closed 07/18/2011 07/17/2012 1 1 Encounter Details Date Type Department Care Team (Late st Contact Info) Description 07/18/2011 Ancillary Orders [facility] Cardiology- [place] [address] [place] [address] Robert Hdez MD [address] [place] [phone] Claudication Social History Tobacco Use Types Packs/Day Years Used Date Smoking Tobacco: Every Day Cigarettes 0.8 45 Smokeless Tobacco: Never Alcohol Use Standard Drinks/Week Comments No 0 (1 standard drink = 0.6 oz pur e alcohol) Comments No Sex and Gender Information Value Date Recorded Sex Assigned at Not on file 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 Gender Identity Not on file Sexual Orientation Not on file documented as of this encounter Plan of Treatment Not on file documented as of this encounter Results * US ARTERIAL W SEG PRES LOWER EXERCISE (07/18/2011 9:23 AM CDT) Anatomical Region Laterality Modality Lower Extremity Ultrasound 07/18/2011 9:00 AM CDT Narrative 07/18/2011 1:14 PM CDT [facility] [address] [place] [address] [place] [address] Noninvasive Vascular Lab Multilevel Lower Extremity Evaluation with Exercise Arterial Physiologic Evaluation Patient: Kalyani Cassidy Study ID: Gender: F : 1950 Age: 61 Room: Height: Weight: BSA: Pt status: Outpatient Study Date: 07/18/2011 Study Time: 09:00 AM BSA: Ordering: Robert Hdez Interpreting:Jose Daniel Simon MD, MBA FACS Admissions Coordinator: Arlet Ibanez RVT Indications: 440.21 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 The patient c/o right leg pain starting at the hip and moving down as she walks. History: Right lower extremity pain. Risk factors: Current tobacco use. Hypertension. Dyslipidemia. Coronary artery disease. Prior stroke on the right side. Summary Impression: No significant peripheral vascular disease in either lower extremity. There is evidence of severe small vessel withflat waveformsin the 1st. 2nd. and 3rd. toes on the right foot. The remaining digital waveforms are mildly diminished. There are no previous exams available for comparison. Study data: Lower extremity multilevel physiologic evaluation with exercise. Ankle-brachial indices and pulse volume recording. Location: Vascular laboratory. Patient status: Outpatient. Study status: Routine. Procedure: A vascular evaluation was performed. Exam quality was good. Findings: The patient exercised for 4min. The patient complained of mild pain. Reason for stopping: right thigh pain. The patient recovered in 0min. Ankle brachial indices - Baseline Rt PT: 129mm Hg Rt brachial: 127mm Hg Rt PT: 1.02 Lt PT: 132mm Hg Lt PT: 1.04 - 1 min post-exercise Rt PT: 134mm Hg Rt PT: 1.04 Lt PT: 134mm Hg Lt PT: 1.06 Arterial flow: - Right common femoral - Triphasic - Right femoral - Triphasic - Right popliteal - Triphasic - Right posterior tibial - Triphasic - Right dorsal pedal - Triphasic - Left common femoral - Triphasic - Left femoral - Triphasic - Left popliteal - Triphasic - Left posterior tibial - Triphasic - Left dorsal pedal - Triphasic Pulse volume recordings: - R thigh - high 134mm Hg Normal 1.06 - R thigh - low 134mm Hg Normal 1.06 - R calf 131mm Hg Normal 1.03 - R ankle Normal - R ankle PT 129mm Hg 1.02 - R ankle DP 119mm Hg 0.94 - R great toe 46mm Hg 0.36 - L thigh - high 139mm Hg Normal 1.09 - L thigh - low 137mm Hg Normal 1.08 - L calf 134mm Hg Normal 1.06 - L ankle Normal - L ankle PT 132mm Hg 1.04 - L ankle DP 126mm Hg 0.99 - L great toe 120mm Hg 0.94 Photoplethysmography: - R 1st toe Severely dampened - R 2nd toe Severely dampened - R 3rd toe Severely dampened - R 4th toe Mildly dampened - R 5th toe Normal - L 1st toe Normal - L 2nd toe Normal - L 3rd toe Normal - L 4th toe Mildly dampened - L 5th toe Normal [facility] is accredited with the Intersocietal Commission for the Accreditation of Vascular Laboratories (ICAVL) Prepared and Electronically Authenticated Jose Daniel Simon MD, MBA FACS Confirmed 07/18/2011 13:14 Procedure Note Jose Daniel Gardiner MD - 07/18/2011 [facility] [address] [place] [id number] Noninvasive Vascular Lab Multilevel Lower Extremity Evaluation with Exercise Arterial Physiologic Evaluation Patient: Kalyani Cassidy Study ID: Gender: F : 1950 Age: 61 Room: Height: Weight: BSA: Pt status: Outpatient Study Date: 07/18/2011 Study Time: 09:00 AM BSA: Ordering: Robert Hdez Interpreting:Jose Daniel Simon MD, MBA FACS Admissions Coordinator: Arlet Ibanez RVT Indications: 440.21 Atherosclerosis of makah arteries of theextremities with intermittent claudication. The patient c/o right leg pain startingat the hip and moving down as she walks. History: Right lower extremity pain. Risk factors: Current tobacco use. Hypertension. Dyslipidemia. Coronary artery disease. Prior stroke on the right side. Summary Impression: No significant peripheral vascular disease in either lower extremity.There is evidence of severe small vessel withflat waveformsin the 1st. 2nd.and 3rd. toes on the right foot. The remaining digital waveforms are mildly diminished. There are no previous exams available for comparison. Study data: Lower extremity multilevel physiologic evaluation with exercise. Ankle-brachial indices and pulse volume recording. Location: Vascular laboratory. Patient status: Outpatient. Study status: Routine. Procedure: A vascular evaluation was performed. Exam quality was good. Findings: The patient exercised for 4min. The patient complained ofmild pain. Reason for stopping: right thigh pain. The patient recovered in0min. Ankle brachial indices - Baseline Rt PT: 129mm Hg Rt brachial: 127mm Hg Rt PT: 1.02 Lt PT:132mm Hg Lt PT: 1.04 - 1 min post-exercise Rt PT: 134mm Hg Rt PT: 1.04 Lt PT: 134mm Hg Lt PT: 1.06 Arterial flow: - Right common femoral - Triphasic - Right femoral - Triphasic - Right popliteal - Triphasic - Right posterior tibial - Triphasic - Right dorsal pedal - Triphasic - Left common femoral - Triphasic - Left femoral - Triphasic - Left popliteal - Triphasic - Left posterior tibial - Triphasic - Left dorsal pedal - Triphasic Pulse volume recordings: - R thigh - high 134mm Hg Normal 1.06 - R thigh - low 134mm Hg Normal 1.06 - R calf 131mm Hg Normal 1.03 - R ankle Normal - R ankle PT 129mm Hg 1.02 - R ankle DP 119mm Hg 0.94 - R great toe 46mm Hg 0.36 - L thigh - high 139mm Hg Normal 1.09 - L thigh - low 137mm Hg Normal 1.08 - L calf 134mm Hg Normal 1.06 - L ankle Normal - L ankle PT 132mm Hg 1.04 - L ankle DP 126mm Hg 0.99 - L great toe 120mm Hg 0.94 Photoplethysmography: - R 1st toe Severely dampened - R 2nd toe Severely dampened - R 3rd toe Severely dampened - R 4th toe Mildly dampened - R 5th toe Normal - L 1st toe Normal - L 2nd toe Normal - L 3rd toe Normal - L 4th toe Mildly dampened - L 5th toe Normal [facility] is accredited with theIntersocietal Commission for the Accreditation of Vascular Laboratories (ICAVL) Prepared and Electronically Authenticated Jose Daniel Simon MD, MBA FACS Confirmed 07/18/2011 13:14 Robert Hdez MD ORDERABLES Final Result documented in this encounter Visit Diagnoses Diagnosis Claudication Peripheral vascular disease, unspecified Claudication Peripheral vascular disease, unspecified documented in this encounter Care Teams Cookie Mixer Helper Relationship Specialty Start Date End Date [facility], External Provider [address] [place] [id number] PCP - General Family Practice 06/01/11 documented as of this encounter
--- OUTSIDE RECORDS SUMMARY | 2025-06-20 15:51 | XMS_ITS | Encounter Summary ---
Author Organization [facility] Address [address] [place] [address] Care Team Providers Care County Surveyor Name Role Phone [facility], External Provider Primary Care Provider +1- [phone] Encounter Details Date Type Department Care Team (Latest Contact Info) Description 09/15/2005 Outpatient Historical [facility] Endoscopy [place] [address] [place] [phone] Geo Peck MD NO ADDRESS ON FILE ABDOMINAL PAIN EPIGASTRIC (Primary Dx) Social History Tobacco Use Types Packs/Day Years Used Date Smoking Tobacco: Never Assessed Comments Unknown Sex and Gender Information Value Date Recorded Sex Assigned at Not on file 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
--- OUTSIDE RECORDS SUMMARY | 2025-06-20 15:51 | XMS_ITS | Patient Health Record ---
Author Organization [facility] Address [address] [place] [address] Care Team Providers Care Home Care Giver Name Role Phone Sivan Avila Primary Care Provider Unavailabl Roberto Aguilar Unavailable [phone] Dia Sorenson Unavailable Unavailable Migration, Provider Unavailable Unavailable Neel Nance Unavailable [phone] Beverly Christiansen Unavailable [phone] Allergies Allergen (clinical drug ingredient) Drug/Non Drug Allergy documented on EMR Reaction Allergy Type Onset Date Status Darvon Unknown Drug Allergy Active Wasp Venom Unknown Drug Allergy Active Peanut-containing Dr ug Products Unknown Drug Allergy Active propoxyphene Propoxyphene , Drug Allergy A ctive Results Component Value Reference Range Flag Notes Tox Results Reviewed date:03/11/2025 03:30:52 PM Interpretation: Performing Lab: Notes/Report: Urine Confirmation Panel (in strument) - [id number] Reviewed date:03/11/2025 02:50:33 PM Interpretation: Performing Lab: Notes/Report: 6-Acetylmorphine 0 <6 ng/mL N This rachid t was developed and its performance characteristics determined by [facility]. It has not been cleared or approved by the U.S. Food and Drug Administration. 7-Aminoclonazepam 0 <60 ng/mL N This te st was developed and its performance characteristics determined by [facility]. It has not been cleared or approved by the U.S. Food and Drug Administration. Alprazolam 0 <60 ng/mL N This test was developed and its performance characteristics determined by [facility]. It has not been cleared or approved by the U.S. Food and Drug Administration. Amphetamine 0 <75 ng/mL N This test was developed and its performance characteristics determined by [facility]. It has not been cleared or approved by the U.S. Food and Drug Administration. aOH-Alprazolam 0 <60 ng/mL N This test was developed and its performance characteristics determined by [facility]. It has not been cleared or approved by the U.S. Food and Drug Administration. Buprenorphine 0.0 <7.5 ng/mL N This test w as developed and its performance characteristics determined by [facility]. It has not been cleared or approved by the U.S. Food and Drug Administration. Norbuprenorphine 0.0 <37.5 ng/mL N This te st was developed and its performance characteristics determined by [facility]. It has not been cleared or approved by the U.S. Food and Drug Administration. Carisoprodol 0 <75 ng/mL N This test wa s developed and its performance characteristics determined by [facility]. It has not been cleared or approved by the U.S. Food and Drug Administration. Codeine 0 <75 ng/mL N This test was developed and its performance characteristics determined by [facility]. It has not been cleared or approved by the U.S. Food and Drug Administration. EDDP 0 <75 ng/mL N This test was developed and its performance characteristics determined by [facility]. It has not been cleared or approved by the U.S. Food and Drug Administration. Fentanyl 0 <6 ng/mL N This test was developed and its performance characteristics determined by [facility]. It has not been cleared or approved by the U.S. Food and Drug Administration. Hydrocodone 0 <75 ng/mL N This test was developed and its performance characteristics determined by [facility]. It has not been cleared or approved by the U.S. Food and Drug Administration. Hydromorphone 0 <75 ng/mL N This test w as developed and its performance characteristics determined by [facility]. It has not been cleared or approved by the U.S. Food and Drug Administration. Lorazepam 0 <60 ng/mL N This test was developed and its performance characteristics determined by [facility]. It has not been cleared or approved by the U.S. Food and Drug Administration. MDMA 0 <75 ng/mL N This test was developed and its performance characteristics determined by [facility]. It has not been cleared or approved by the U.S. Food and Drug Administration. Meperidine 0.0 <37.5 ng/mL N This test was developed and its performance characteristics determined by [facility]. It has not been cleared or approved by the U.S. Food and Drug Administration. Meprobamate 0 <75 ng/mL N This test was developed and its performance characteristics determined by [facility]. It has not been cleared or approved by the U.S. Food and Drug Administration. Methamphetamine 0 <75 ng/mL N This test was developed and its performance characteristics determined by [facility]. It has not been cleared or approved by the U.S. Food and Drug Administration. Methadone 0 <75 ng/mL N This test was developed and its performance characteristics determined by [facility]. It has not been cleared or approved by the U.S. Food and Drug Administration. Morphine 0 <75 ng/mL N This test was developed and its performance characteristics determined by [facility]. It has not been cleared or approved by the U.S. Food and Drug Administration. Nordiazepam 0 <60 ng/mL N This test was developed and its performance characteristics determined by [facility]. It has not been cleared or approved by the U.S. Food and Drug Administration. Norfentanyl 0 <6 ng/mL N This test was developed and its performance characteristics determined by [facility]. It has not been cleared or approved by the U.S. Food and Drug Administration. Normeperidine 0.0 <37.5 ng/mL N This test was developed and its performance characteristics determined by [facility]. It has not been cleared or approved by the U.S. Food and Drug Administration. O-desmethyltramadol 0 <75 ng/mL N This test was developed and its performance characteristics determined by [facility]. It has not been cleared or approved by the U.S. Food and Drug Administration. Oxazepam 0 <60 ng/mL N This test was developed and its performance characteristics determined by [facility]. It has not been cleared or approved by the U.S. Food and Drug Administration. Oxycodone >2500.0 <37.5 ng/mL > This test was developed and its performance characteristics determined by [facility]. It has not been cleared or approved by the U.S. Food and Drug Administration. Oxymorphone 0 <75 ng/mL N This test was developed and its performance characteristics determined by [facility]. It has not been cleared or approved by the U.S. Food and Drug Administration. Phencyclidine 0.0 <7.5 ng/mL N This test w as developed and its performance characteristics determined by [facility]. It has not been cleared or approved by the U.S. Food and Drug Administration. Tapentadol 0.0 <37.5 ng/mL N This test was developed and its performance characteristics determined by [facility]. It has not been cleared or approved by the U.S. Food and Drug Administration. Temazepam 0 <60 ng/mL N This test was developed and its performance characteristics determined by [facility]. It has not been cleared or approved by the U.S. Food and Drug Administration. Tramadol 0 <75 ng/mL N This test was developed and its performance characteristics determined by [facility]. It has not been cleared or approved by the U.S. Food and Drug Administration. Norhydrocodone 0 <75 ng/mL N This test was developed and its performance characteristics determined by [facility]. It has not been cleared or approved by the U.S. Food and Drug Administration. Noroxycodone >2500 <38 ng/mL > This test wa s developed and its performance characteristics determined by [facility]. It has not been cleared or approved by the U.S. Food and Drug Administration. Pregabalin 0 <225 ng/mL N This test was developed and its performance characteristics determined by [facility]. It has not been cleared or approved by the U.S. Food and Drug Administration. Gabapentin 0 <225 ng/mL N This test was developed and its performance characteristics determined by [facility]. It has not been cleared or approved by the U.S. Food and Drug Administration. Benzoylecgonine 0.0 <37.5 ng/mL N This rachid t was developed and its performance characteristics determined by [facility]. It has not been cleared or approved by the U.S. Food and Drug Administration. 4-Hydroxy Xylazine 0 <25 ng/mL N This t est was developed and its performance characteristics determined by [facility]. It has not been cleared or approved by the U.S. Food and Drug Administration. Urine Drug Screen (cup read) - [id number] Reviewed date:03/04/2025 12:04:50 PM Interpretation: Performing Lab: Notes/Report: OXY + zzzUrine Drug Screen ([facility] by instrument) - [id number] Reviewed date:12/23/2024 01:07:51 PM Interpretation: Performing Lab: Notes/Report: Reason For Referral No Information Medications Medication SIG (Take, Route, Frequency, Duration) Notes Start Date End Date Status Lansoprazole 30 MG Capsule Delayed Release 1 capsule 1/2 to 1 hour before morning meal Orally Once a day Not-Taking Escitalopram Oxalate 10 MG Tablet 1 tablet Orally Once a day Active Singulair *Pick strength-f orm from [employer] for eRX* Not-Taking Fluticasone Propionate 50 MCG/ACT Suspension Nasal; Duration: 90 Days Active Alendronate Sodium 70 MG Tablet Oral; Duration: 84 Days Active Nitrolingual *Pick strength-f orm from [employer] for eRX* Not-Taking Azithromycin 250 MG Tablet 1 tablet Orally Every Mon, Wed, & Fri; Duration: 30 days 03/16/2025 Active Protonix *Pick strength-f orm from [employer] for eRX* Not-Taking Lexapro *Pick strength-f orm from [employer] for eRX* Not-Taking Albuterol Sulfate (2.5 MG/3ML) 0.083% Nebulization Solution INHALE 1 VIAL PER NEBULIZER EVERY 4 HOURS NEEDED Inhalation; Duration: 7 Days Active methIMAzole Methimazole 12/05/2018 Not-T udayg Flonase Allergy Relief 50 MCG/ACT Suspension 1 spray in each nostril Nasally Twice a day *Pick strength-form from [employer] for eRX* Not-Taking Ibuprofen 200 MG Capsule 1 capsule with food or milk as needed Orally Three times a day Ibuprofen 12/05/2018 Not-Taking Daliresp *Pick strength-f orm from [employer] for eRX* Not-Taking Dicyclomine Dicyclomine 12/05/2018 Not-T aking Aspirin Aspirin 12/05/2018 Not-Takin g Stool Softener 100 MG Capsule 1 capsule as needed Orally Once a day Active Trelegy Ellipta 100-62.5-25 MCG/ACT Aerosol Powder Breath Activated 1 puff (rinse mouth after use) Inhalation Once a day Active oxyCODONE HCl 10 MG Tablet 1 tablet Oral every 8 hrs; Duration: 30 days As needed Not to exceed 3 per day Fill 05/03/2025 04/29/2025 Not-Taking Nitroglycerin 0.4 MG Tablet Sublingual 1 tablet under the tongue and allow to dissolve as needed. Take every 5 minutes up to 3 times if chest pain persists Sublingual as needed Nitroglycerin 12/05/2018 Active Metoprolol Succinate 25 MG Capsule ER 24 Hour Sprinkle 1 capsule Orally Once a day Active Xanax Xanax 12/05/2018 Not-Takin g Montelukast Sodium 10 MG Tablet 1 tablet Orally Once a day Active Levothyroxine Sodium 75 MCG Tablet Oral; Duration: 90 Days Active Triamcinolone Acetonide 1 MG/ML Topical Cream Triamcinolone Acetonide 1 MG/ML Topical Cream 12/05/2018 Not-Taking Lisinopril 20 MG Tablet 1 tablet Orally Once a day; Duration: 90 days Active Ventolin HFA *Pick strength-f orm from [employer] for eRX* Not-Taking Symbicort 160-4.5 MCG/ACT Aerosol as directed Inhalation Symbicort 12/05/2018 Not-Taking tramadol *Reorder from [employer] for eRx and Interaction Alerts* Not-Taking Social History Tobacco Use: Social History Observation Description Date Details (start date - stop date) Former Smoker NA - NA Social History Tobacco Use: Social Info Question Answer Notes Tobacco Control (Standard) Tobacco use: Former smoker How long has it been since you last smoked? Greater than 10 years Additional Details Category Social Info Options Details Drugs/Alcohol: Do you drink alcohol? No Migrated Social History Migrated Social History Alcoholic beverages? - No, Currently on disability? - Yes, Drug or substance abuse? - No, Marital Status - , Smoked in the past? - Yes, Smoking - No, Working currently? - No Section Notes: Patient is on disability Patient is on disability Patient is on disability Patient is on disability Problems Problem Type SNOMED Code ICD Code Onset Dates Problem Status W/U Status Risk Notes Problem Malignant tumor of lung (552511975) Malignant neoplasm of unspecified part of unspecified bronchus or lung (C34.90) 03/19/20 24 Active confirmed Problem Tobacco user (717434955) Nicotine dependence, cigarettes, uncomplicated (F17.210) Active confirmed Problem Tobacco user (318736697) Nicotine dependence, cigarettes, in remission (F17.211) Active confirmed Problem Chronic pain syndrome (478088695) Chronic pain syndrome (G89.4) 05/27/20 Active confirmed Problem Centrilobular emphysema (88387544) Centrilobular emphysema (J43.2) Active confirmed Problem Lumbosacral spondylosis without myelopathy (36672747) Other spondylosis with radiculopathy, lumbosacral region (M47.27) 03/19/20 Active confirmed Problem Degeneration of thoracic intervertebral disc (27082014) Other intervertebral disc degeneration, thoracic region (M51.34) 03/19/20 Active confirmed Problem Degeneration of lumbar intervertebral disc (59791723) Other intervertebral disc degeneration, lumbar region (M51.36) 05/27/20 Active confirmed Problem Abnormal gait (32294690) Unspecified abnormalities of gait and mobility (R26.9) 03/19/20 Active confirmed Problem Lumbosacral spondylosis with radiculopathy (885693953) Lumbosacral spondylosis with radiculopathy (M47.27) Active confirmed Problem Chronic obstructive pulmonary disease (41553419) Stage 3 severe COPD by GOLD classification (J44.9) Active confirmed Problem Primary malignant neoplasm of right lung (disorder) (566887611) Malignant neoplasm of overlapping sites of right lung (C34.81) Active confirmed Problem Acquired bronchiectasis (111669198) Acquired bronchiectasis (J47.9) Active confirmed Problem Abnormal gait (55071389) Abnormality of gait and mobility (R26.9) Active confirmed Problem Degeneration of thoracic intervertebral disc (31113517) DDD (degenerative disc disease), thoracic (M51.34) Active confirmed Problem Chronic respiratory failure (82511473) Chronic hypoxic respiratory failure (J96.11) Active confirmed Vital Signs Heart Rate 82 /min 05/12/2025 Temperature 97.3 degrees Fahrenheit 05/12/2025 Respiratory Rate 20 /min 05/12/2025 Blood pressure diastolic 65 mm Hg 05/12/2025 Oximetry 100 % 05/12/2025 Height-cm 154.94 cm 05/12/2025 Weight-kg 55.3 kg 05/12/2025 Height 61.00 in 05/12/2025 Blood pressure systolic 121 mm Hg 05/12/2025 Weight 121.91 lbs 05/12/2025 BMI 23.03 kg/m2 05/12/2025 Procedures Procedure Date Ordered Date Performed Result Body Sit e PFT with FRC: (NO TGV) 10/27/2024 N/A Epidural, Lumbar/Sacral (Cau matt), w/ imaging guidance - [id number] 01/29/2025 01/29/2025 N/A PFT with FRC: (NO TGV) 02/02/2025 02/02/2025 N/A Epidural, Lumbar/Sacral (Cau matt), w/ imaging guidance - [id number] 05/21/2025 05/21/2025 07-03 Encounters Encounter Location Date Provider Diagnosis [facility] [address] [place] [address] 05/21/2025 Neel Nance Other spondylosis with radiculopathy, lumbosacral region M47.27 [facility] [place] [address] [place] [phone] 08/14/2024 Beverly Christiansen [facility] [place] [address] [place] [phone] 07/10/2024 Beverly Christiansen [facility] [address] [place] [address] [place] [address] 05/12/2025 Roberto Bell Malignant neoplasm o f overlapping sites of right lung C34.81 ; Stage 3 severe COPD by GOLD classification J44.9 ; Shortness of breath R06.02 ; Chronic hypoxic respiratory failure J96.11 ; Acquired bronchiectasis J47.9 and Nicotine dependence, cigarettes, in remission F17.211 [facility] [place] [address] [place] [address] 04/29/2025 Neel Nance Chronic pain syndrom e G89.4 ; Other intervertebral disc degeneration, thoracic region M51.34 ; Degeneration of intervertebral disc of lumbar region with discogenic back pain M51.360 ; Other spondylosis with radiculopathy, lumbosacral region M47.27 ; Unspecified abnormalities of gait and mobility R26.9 and Other exterminator termite (current) drug therapy Z79.899 [facility] [place] [address] [place] [address] 03/04/2025 Neel Nance Chronic pain syndrom e G89.4 ; Other intervertebral disc degeneration, thoracic region M51.34 ; Degeneration of intervertebral disc of lumbar region with discogenic back pain M51.360 ; Other spondylosis with radiculopathy, lumbosacral region M47.27 ; Unspecified abnormalities of gait and mobility R26.9 and Other exterminator termite (current) drug therapy Z79.899 [facility] [address] [place] [address] [place] [address] 02/02/2025 Roberto Bell Malignant neoplasm o f overlapping sites of right lung C34.81 ; Stage 3 severe COPD by GOLD classification J44.9 ; Shortness of breath R06.02 ; Chronic hypoxic respiratory failure J96.11 ; Acquired bronchiectasis J47.9 and Nicotine dependence, cigarettes, uncomplicated F17.210 [facility] [address] [address] 12/18/2024 Beverly Christiansen Chronic pain syndrom e G89.4 ; Other intervertebral disc degeneration, thoracic region M51.34 ; Degeneration of intervertebral disc of lumbar region with discogenic back pain M51.360 ; Other spondylosis with radiculopathy, lumbosacral region M47.27 ; Unspecified abnormalities of gait and mobility R26.9 and Other exterminator termite (current) drug therapy Z79.899 [facility] [address] [address] 10/15/2024 Neel Nance Chronic pain syndrom e G89.4 ; DDD (degenerative disc disease), thoracic M51.34 ; Degeneration of intervertebral disc of lumbar region with discogenic back pain and lower extremity pain M51.362 ; Lumbosacral spondylosis with radiculopathy M47.27 ; Abnormality of gait and mobility R26.9 and Encounter for long-term (current) use of other medications Z79.899 [facility] [address] [place] [address] [place] [address] 02/02/2025 Roberto Bell Shortness of breath R06.02 [facility] [address] [place] [address] 01/29/2025 Neel Nance Lumbosacral spondylosis with radiculopathy M47.27 [facility] [place] [address] [place] [place] [address] 09/18/2024 Beverly Christiansen [facility] [address] [place] [address] [place] [address] 10/27/2024 Roberto Bell Malignant neoplasm o f overlapping sites of right lung C34.81 ; Shortness of breath R06.02 ; Chronic hypoxic respiratory failure J96.11 ; Acquired bronchiectasis J47.9 and Nicotine dependence, cigarettes, uncomplicated F17.210 [facility] [address] [place] [address] [place] [address] 02/03/2025 Roberto Bell [facility] [address] [place] [address] 02/02/2025 Roberto Bell [facility] [address] [place] [address] 01/30/2025 Neel Nance Lumbosacral spondylosis with radiculopathy M47.27 [facility] [place] [address] [place] [address], [place] [address] 01/13/2025 Neel Nance [facility] [address] [place] [facility] [place] [address] 12/18/2024 Neel Nance [facility] [address] [place] [address] 12/10/2024 Roberto Bell Migrated_Facility 0 0 09/14/2024 Provider Migration Migrated_Facility 0 0 09/13/2024 Provider Migration [facility] [address] [place] [address] 03/16/2025 Roberto Bell [facility] [address] [place] [facility] [place] [address] 03/02/2025 Neel Nance Other spondylosis with radiculopathy, lumbosacral region M47.27 [facility] [address] [place] [address] [place] [address] 02/23/2025 Roberto Bell Assessments Encounter Date Diagnosis (ICD Code) Assessment Notes Treatment Notes Treatment Clinical Notes Section Notes 10/15/2024 Chronic pain syndrome (ICD-10 - G89.4) I had a nice visit with the patient today regarding her chronic pain issues. She continues to struggle with her lung issues with her history of lung cancer amongst a variety of other chronic pain conditions. She says she is no longer taking the Xanax and we had a lengthy discussion about that. She did fill a prescription a couple of weeks ago but says she will no longer fill anymore. We will try and switch her over to oxycodone 10mg up to 3x daily for the next couple of months and see how she does. We will proceed accordingly from there. She did verbalize understanding that she can specifically no longer fill prescriptions for the Xanax. 05/21/2025 Other spondylosis with radiculopathy, lumbosacral region (ICD-10 - M47.27) 10/15/2024 DDD (degenerative disc disease), thoracic (ICD-10 - M51.34) 10/27/2024 Shortness of breath (ICD-10 - R06.02) Patients medication list states she is on Daliresp. She seems confused by this. She states she is taking Trelegy and Symbicort as well. I have instructed her to either call when she gets home to confirm what she is actually taking or bring her medications to her next appointment. -Patient states she has had at least 5 exacerbations in the last year requiring steroids. -Obtain PFT. 10/27/2024 Malignant neoplasm of overlapping sites of right lung (ICD-10 - C34.81) Patient follows with Oncology in [place], [place]. She has chest CT scans every 6 months. -Patient states she had radiation for this. 12/18/2024 Chronic pain syndrome (ICD-10 - G89.4) I had a nice discussion with the patient today regarding her chronic pain complaints. She states she has had some return of her lower back pain as well as her radicular symptoms. She has done LESI's in the past which she reports helped relieve her pain for greater than 3 months. She is requesting to repeat 1 of these. After discussion, we will get her set up for an episodic LESI L4-5. She is doing much better on the oxycodone so she will continue that at present level. She denies any other changes since we last seen her any untoward side effects of the medication. She will return to clinic after procedure to monitor for treatment effectiveness and compliance. RECOMMEND URINE TESTING TODAY Urine drug screening will be performed today to monitor compliance with opioid therapy or to serve as a baseline screen for a patient who may be a candidate for opioid therapy in the future, pending UDS results. We will monitor with in-office testing (rapid testing) today and review the results prior to dispensing prescription. All positive results will be sent for quantitative analysis to ensure accuracy and quantify amounts. Any expected positive results that return negative will also be sent for quantitative analysis. Any questionable read or any medication we cannot test for in the office confidently will be sent for quantitative analysis, as well. Patient has been made aware of this policy and agrees to abide by our urine testing policy. The patient continues with chronic pain requiring treatment to help restore function and improve quality of life. Risks of opioid therapy as well as interaction of opioids with alcohol, illicit drugs, muscle relaxers, and other sedative medications are reviewed briefly with patient again today. The patient has trialed all other reasonable treatment options and uses the medication to alleviate pain in order to remain active and rest with less pain. No clinically relevant medication side effects are noted. Last UDS and [place] AUTOMATION TECHNOLOGIST reviewed today. Patient is advised that best long-term goals include increased activity, core strengthening, proper weight management, coping strategies, avoidance of painful triggers, and targeted interventional therapy. We will see the patient for routine follow up in accordance with all clinic policies. We did remind patient today of current guidelines to decrease opioid when possible. We will continue to stress nonopioid treatment. 12/18/2024 Other intervertebral disc degeneration, thoracic region (ICD-10 - M51.34) 01/29/2025 Lumbosacral spondylosis with radiculopathy (ICD-10 - M47.27) 01/30/2025 Lumbosacral spondylosis with radiculopathy (ICD-10 - M47.27) 02/02/2025 Shortness of breath (ICD-10 - R06.02) 02/02/2025 Stage 3 severe COPD by GOLD classification (ICD-10 - J44.9) -Patient now states she has never been on Daliresp before. -History of Symbicort. -Continue Trelegy and Albuterol HFA as needed. -Patient states she has had at least 2 exacerbations in the last year requiring steroids. I will start her on Daliresp. 02/02/2025 Malignant neoplasm of overlapping sites of right lung (ICD-10 - C34.81) Patient follows with Oncology in [place], [place]. She has chest CT scans every 6 months. -Patient states she had radiation for this. 03/04/2025 Chronic pain syndrome (ICD-10 - G89.4) I had a nice visit with the patient today regarding her chronic pain issues. Overall, she seems to be doing alright. She has had some relief with the lumbar epidural steroid injection so she is pleased about that. 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 We will continue her medications unchanged. She just filled a prescription this morning so we will only give her 1 more month and see her back in 2 months. 04/29/2025 Chronic pain syndrome (ICD-10 - G89.4) I had a nice visit with the patient today regarding her chronic pain issues. She reports her back is bothering her a bit again. Her shoulder has improved because she has not been trapping as many animals, but she is interested in pursuing another injection for her lumbar spine. It has been a few months, so we will get this repeat epidural scheduled. We will continue her medications unchanged and see her back thereafter. 05/12/2025 Malignant neoplasm of overlapping sites of right lung (ICD-10 - C34.81) -Patient follows with Oncology in [place], [place]. She has chest CT scans every 6 months. -Patient states she had radiation for this. 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 -Side effect Daliresp: Headaches and dizziness. -Continue Trelegy and Albuterol HFA as needed. -Continue Azithromycin MWF. 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 10/15/2024 Degeneration of intervertebral disc of lumbar region with discogenic back pain and lower extremity pain (ICD-10 - M51.362) 10/27/2024 Acquired bronchiectasis (ICD-10 - J47.9) 12/18/2024 Other spondylosis with radiculopathy, lumbosacral region (ICD-10 - M47.27) 03/04/2025 Degeneration of intervertebral disc of lumbar region with discogenic back pain (ICD-10 - M51.360) 02/02/2025 Chronic hypoxic respiratory failure (ICD-10 - J96.11) Continue nasasl cannula to maintain a saturation above 88%. I have emphasized the importance of compliance with oxygen. 04/29/2025 Degeneration of intervertebral disc of lumbar region with discogenic back pain (ICD-10 - M51.360) 05/12/2025 Chronic hypoxic respiratory failure (ICD-10 - J96.11) -Continue nasasl cannula to maintain a saturation above 88%. I have emphasized the importance of compliance with oxygen. 10/15/2024 Lumbosacral spondylosis with radiculopathy (ICD-10 - M47.27) 05/12/2025 Acquired bronchiectasis (ICD-10 - J47.9) 04/29/2025 Other spondylosis with radiculopathy, lumbosacral region (ICD-10 - M47.27) RECOMMEND THERAPEUTIC LUMBAR EPIDURAL STEROID INJECTION, levels L4-5 The patient reports overall 50% improvement in function and decrease in pain for greater than one month from previous diagnostic MARE. The patient also reports improvement in tolerance to activities which generally cause pain. Based on the results of previous diagnostic MARE, a therapeutic MARE is recommended. Expectation from a successful therapeutic epidural steroid injection is at least 50-70% relief of pain from baseline and evidence of improved function for at least six to eight weeks after delivery. The goal of epidural steroid injections is to reduce pain and inflammation, restoring range of motion and, thereby, facilitating progress in more active treatment programs, and avoiding surgery. The procedure and risks were discussed with the patient including but not limited to infection, bleeding, neurological complications, side effects from medications, no change in pain, worsening of pain, or even . We also discussed conservative options, surgical options, and medical management with patient as well. The patient indicates understanding and wishes to proceed with the recommended treatment approach. The patient was given written information about the procedure and all questions were answered. 03/04/2025 Other spondylosis with radiculopathy, lumbosacral region (ICD-10 - M47.27) 02/02/2025 Acquired bronchiectasis (ICD-10 - J47.9) 10/15/2024 Abnormality of gait and mobility (ICD-10 - R26.9) 10/27/2024 Nicotine dependence, cigarettes, uncomplicated (ICD-10 - F17.210) -Patient smoked two bhadt-kuf-dun for 45 years. She has been abstinent since 2009. 12/18/2024 Unspecified abnormalities of gait and mobility (ICD-10 - R26.9) 12/18/2024 Other exterminator termite (current) drug therapy (ICD-10 - Z79.899) 02/02/2025 Nicotine dependence, cigarettes, uncomplicated (ICD-10 - F17.210) -Patient smoked two vqvci-ecz-bvz for 45 years. She has been abstinent since 2009. 03/04/2025 Unspecified abnormalities of gait and mobility (ICD-10 - R26.9) 04/29/2025 Unspecified abnormalities of gait and mobility (ICD-10 - R26.9) 05/12/2025 Nicotine dependence, cigarettes, in remission (ICD-10 - F17.211) -Patient smoked two hqedw-wps-znz for 45 years. She has been abstinent since 2009. 10/15/2024 Encounter for long-term (current) use of other medications (ICD-10 - Z79.899) 04/29/2025 Other exterminator termite (current) drug therapy (ICD-10 - Z79.899) 03/04/2025 Other exterminator termite (current) drug therapy (ICD-10 - Z79.899) RECOMMEND URINE TESTING TODAY Urine drug screening will be performed today to monitor compliance with opioid therapy or to serve as a baseline screen for a patient who may be a candidate for opioid therapy in the future, pending UDS results. We will monitor with in-office testing (rapid testing) today and review the results prior to dispensing prescription. All positive results will be sent for quantitative analysis to ensure accuracy and quantify amounts. Any expected positive results that return negative will also be sent for quantitative analysis. Any questionable read or any medication we cannot test for in the office confidently will be sent for quantitative analysis, as well. Patient has been made aware of this policy and agrees to abide by our urine testing policy. 10/15/2024 Other Rodrigo Riley am scribing for Neel Nance. Neel Riley, personally performed the services described in this documentation , as scribed by Rodrigo Willams, and it is both accurate and complete. 10/27/2024 Other Leny Riley am scribing for, and in the presence of Dr. Roberto Bell. I, Dr. Roberto Bell, personally performed the services described in this documentation , as scribed by Leny Medina in my presence, and it is both accurate and complete. 02/02/2025 Other Leny Riley am scribing for, and in the presence of Dr. Roberto Bell. Rosemary, Dr. Roberto Bell, personally performed the services described in this documentation , as scribed by Leny Medina in my presence, and it is both accurate and complete. 03/04/2025 Other Rodrigo Riley am scribing for Dr. Neel Nance. Rosemary, Dr. Neel Nance, personally performed the services described in this documentation, as scribed by Rodrigo Willams, and it is both accurate and complete. 04/29/2025 Other Zahraa Riley NCMA, am scribing for Dr. Neel Nance. I, Dr. Neel Nance, personally performed the services described in this documentation, as scribed by ARTUR Garcia, and it is both accurate and complete. 05/12/2025 Other I, Leny Medina, am scribing for, and in the presence of Dr. Roberto Bell. I, Dr. Roberto Bell, personally performed the services described in this documentation , as scribed by Leny Medina in my presence, and it is both accurate and complete. Plan Of Treatment Pending Test Test Name Order Date PFT with FRC: (NO TGV) 10/27/2024 Future Test Test Name Order Date Fluoro Needle For Placement - Spine 7700 3 12/30/2024 Next Appt Details Provider Name:Neel Nance, 06/24/2025 09:40:00 AM, [address] [place], [address], Provider Name:Roberto Bell, 11/16/2025 10:50:00 AM, [address] [place] [address] [address] [place], [place], [address], Insurance Providers Payer Name Payer Address Payer Phone Subscriber Number Group Number Insured Name Patient Relationship to Insured Coverage Start Date Coverage End Date [facility] [employer] Replacement [address] [place] [address] [id number] TRUMAN PHAM Self - patient is the insured [place] Medicaid [address] [place] [address] [id number] TRUMAN PHAM Self - patient is the insured Medical (General) History Medical History History ICD Code Abdominal pain Bowel spasm Candidiasis of the esophagus Cerebrovascular accident Chronic abdominal pain :Chronic obstructive lung disease Constipation Coronary artery spasm Problem:Depressive disorder Problem:Esophagitis Gastroesophageal reflux disease Hypertensive disorder, systemic arterial Hyperthyroidism Maxillary sinusitis Migraine without aura Myocardial infarction Obstructive sleep apnea syndrome Pulmonary emphysema thyroid hormone tests abnormal Measles chicken pox small pox pneumonia arthritis stroke Surgical History Surgery Date(Month/Year) Adenoidectomy Appendectomy section Cholecystectomy Heart surgery Oophorectomy Thyroidectomy Tonsillectomy Hospitalization History Reason Date(Month/Year) See Surgical HX
--- OUTSIDE RECORDS SUMMARY | 2025-06-20 15:51 | XMS_ITS | Encounter Summary ---
Author Organization [facility] Address [address] [place] [address] Care Team Providers Care Animal Husbandry Professor Name Role Phone [facility], External Provider Primary Care Provider [phone]- [phone] Encounter Details Date Type Department Care Team (Latest Contact Info) Description 03/15/2006 Outpatient Historical [facility]- [place] [address] [address] [place] [phone] Geo Peck MD NO ADDRESS ON FILE Esophageal Reflux (Primary Dx) Social History Tobacco Use Types Packs/Day Years Used Date Smoking Tobacco: Never Assessed Comments Unknown Sex and Gender Information Value Date Recorded Sex Assigned at Not on file 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
--- OUTSIDE RECORDS SUMMARY | 2025-06-20 15:51 | XMS_ITS | Encounter Summary ---
Author Organization [facility] Address [address] [place] [address] Care Team Providers Care Lump Room Supervisor Name Role Phone [facility], External Provider Primary Care Provider [phone]- [phone] Encounter Details Date Type Department Care Team (Latest Contact Info) Description 01/28/2007 Outpatient Historical [facility] 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
--- OUTSIDE RECORDS SUMMARY | 2025-06-20 15:51 | XMS_ITS | Encounter Summary ---
Author Organization [facility] Address [address] Attn: [place] [address] Care Team Providers Care Customer Operations Specialist Name Role Phone [facility], External Provider Primary Care Provider [phone]- [phone] Encounter Details Date Type Department Care Team (Late st Contact Info) Description 07/05/2001 Outpatient Historical Carlee Amaya MD [address] [id number] Social History Tobacco Use Types Packs/Day Years Used Date Smoking Tobacco: Never Assessed Comments Unknown Sex and Gender Information Value Date Recorded Sex Assigned at Not on file Legal Sex Female 4:14 AM GANG KNIFE FISH CHOPPER Gender Identity Not on file Sexual Orientation Not on file documented as of this encounter Plan of Treatment Not on file documented as of this encounter Visit Diagnoses Not on filedocumented in this encounter Care Teams Customer Operations Specialist Relationship Specialty Start Date End Date [facility], External Provider [address] [place] [address] PCP - General Family Practice 06/01/11 documented as of this encounter
--- OUTSIDE RECORDS SUMMARY | 2025-06-20 15:51 | XMS_ITS | Clinical Summary ---
Author Organization [employer] Address [address] Vieran: Epic Prelude ADT [place] [address] Care Team Providers Care Cost Consultant Name Role Phone [facility], External Provider Primary Care Provider +1- [phone] Allergies Active Allergy Reactions Criticality Noted Date Comments Nut Flavor Anaphylaxis High 07/05/2011 Propoxyphene Confusion Low 06/14/2011 Active Problems Problem Noted Date Diagnosed Date PFO (patent foramen ovale) 05/24/2011 CVA, old, speech/language deficit 05/24/2011 Immunizations Immunization Administration Dates Next Due (TDVAX)(7 YRS UP) TETANUS AN D DIPHTHERIA TOXOIDS, ADSORBED (2 LF OF TETANUS TOXOID AND 2 LF OF DIPHTHERIA TOXOID), 0.5ML (PF), IM 09/09/2003 Family History Medical History Relation Name Comments Arthritis-rheumatoid Daughter Heart Disease Father Hypertension Mother Relation Name Status Comments Daughter Father Mother Alive Sister Alive Social History Tobacco Use Types Packs/Day Years Used Date Smoking Tobacco: Every Day Cigarettes Smokeless Tobacco: Never Alcohol Use Standard Drinks/Week Comments No 0 (1 standard drink = 0.6 oz pur e alcohol) Comments Unknown Sex and Gender Information Value Date Recorded Sex Assigned at Not on file Legal Sex Female 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 Gender Identity Not on file Sexual Orientation Not on file Plan of Treatment Health Maintenance Due Date Last Done Comments PNEUMOCOCCAL VACCINE 50+ YEARS (1 of 2 - PCV) 05/02/19 69 COLORECTAL SCREENING 1995 Colorectal Cancer Screening 1995 FIT-DNA Q 3 years 1995 FIT/FOBT Q 1 year 1995 Flex Sig/CT Colonography Q 5 years 1995 ZOSTER VACCINE (1 of 2) 2000 DTAP/TDAP/TD VACCINES (1 - Tdap) 09/10/2003 09/09/20 03 OSTEOPOROSIS SCREENING 2015 RSV VACCINE (60+ or ) (1 - 1-dose 75+ series) 2025 INFLUENZA VACCINE (#1) 2025 Insurance [id number] [place] [address] MEDICAID [place] MEDICARE Care Teams Cost Consultant Relationship Specialty Start Date End Date [facility], External Provider [facility] [place] [address] PCP - General Family Practice 06/01/11
--- OUTSIDE RECORDS SUMMARY | 2025-06-20 15:51 | XMS_ITS | Encounter Summary ---
Author Organization [facility] Address [address] [place] [address] Care Team Providers Care Tip Mender Name Role Phone [facility], External Provider Primary Care Provider +1- [phone] Encounter Details Date Type Department Care Team (Latest Contact Info) Description 01/28/2007 Outpatient Historical [facility] Ear, Nose and Th[facility]at [address] [place] [phone] Joanna Eason AU.D NO ADDRESS ON FILE Dizziness and Giddiness (Primary Dx) Social History Tobacco Use Types Packs/Day Years Used Date Smoking Tobacco: Never Assessed Comments Unknown Sex and Gender Information Value Date Recorded Sex Assigned at Not on file Legal Sex Female 4:14 AM BOUNTY TRAPPER Gender Identity Not on file Sexual Orientation Not on file documented as of this encounter Plan of Treatment Not on file documented as of this encounter Visit Diagnoses Diagnosis Dizziness and giddiness- Primary documented in this encounter Care Teams Tip Mender Relationship Specialty Start Date End Date [facility], External Provider [address] [place] [place] [address] PCP - General Family Practice 06/01/11 documented as of this encounter
--- OUTSIDE RECORDS SUMMARY | 2025-06-20 15:51 | XMS_ITS | Clinical Summary ---
Author Organization [facility] Address [address] [place] [address] Phone Care Team Providers Care Steel Wheel Engraver Name Role Phone [facility], External Provider Primary Care Provider +1- [phone] Allergies Active Allergy Reactions Criticality Noted Date Comments Nut Flavor Anaphylaxis High 07/05/2011 Propoxyphene Confusion Low 06/14/2011 Medications nitroglycerin SR (NITRO-TIME) 2.5 mg Oral capsule Take 2.5 mg by mouth 3 times daily. Active aspirin (TERRY) 325 mg Oral tablet Take 325 mg by mouth daily. Active FLUTICASONE/CHRISSIE METEROL (ADVAIR DISKUS INHALATION) Take by inhalation 2 times daily. Active simvastatin (ZOCOR) 40 mg Oral tablet Take 40 mg by mouth Daily LATE. Active ranitidine HCl (ZANTAC) 150 mg Oral Cap Take 150 mg by mouth daily. Active docusate sodium (COLACE) 100 mg Oral capsule Take 100 mg by mouth daily. Active ALPRAZolam (XANAX) 0.5 mg Oral tablet Take 0.5 mg by mouth 2 times daily. Active montelukast (SINGULAIR) 10 mg Oral tablet Take 10 mg by mouth daily at bedtime. Active naproxen (NAPROSYN) 500 mg Oral tablet Take 500 mg by mouth 2 times daily as needed. Active LEVALBUTEROL TARTRATE (XOPENEX HFA INHALATION) Take 2 Puffs by inhalation 4 times daily. Active ibuprofen (MOTRIN) 800 mg Oral tablet Take 800 mg by mouth every 6 hours as needed. Active lamoTRIgine (LAMICTAL) 100 mg Oral tablet Take 100 mg by mouth daily. Active trimethoprim-peña lfamethoxazole (SMZ-TMP DS) 800-160 mg Oral tablet Take 1 Tab by mouth daily. Active guaiFENesin SR (MUCINEX) 600 mg Oral tablet Take 600 mg by mouth 1 time daily as needed. Active verapamil (CALAN) 120 mg Oral tablet Take 120 mg by mouth daily. 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 Gender Identity Not on file Sexual Orientation Not on file Last Filed Vital Signs Vital Sign Reading Time Taken Comments Blood Pressure 102/68 01/15/2012 2:09 PM FARM MANAGEMENT TEACHER Pulse 80 01/15/2012 2:09 PM FARM MANAGEMENT TEACHER Temperature 37 C (98.6 F) 07/06/2011 4:11 AM CDT Respiratory Rate 18 07/06/2011 7:45 AM CDT Oxygen Saturation 97% 07/06/2011 4:11 AM CDT Inhaled Oxygen Concentration - - Weight 48.1 kg (106 lb) 01/15/2012 2:09 PM FARM MANAGEMENT TEACHER Height 154.9 cm (5' 1 ) 01/15/2012 2:09 PM FARM MANAGEMENT TEACHER Body Mass Index 20.03 01/15/2012 2:09 PM FARM MANAGEMENT TEACHER Plan of Treatment Health Maintenance Due Date Last Done Comments PNEUMOCOCCAL VACCINE 50+ YEARS (1 of 2 - PCV) 05/02/19 69 COLORECTAL SCREENING 1995 Colorectal Cancer Screening 1995 FIT-DNA Q 3 years 1995 FIT/FOBT Q 1 year 1995 Flex Sig/CT Colonography Q 5 years 1995 ZOSTER VACCINE (1 of 2) 2000 DTAP/TDAP/TD VACCINES (1 - Tdap) 09/10/2003 09/09/20 OSTEOPOROSIS SCREENING 2015 RSV VACCINE (60+ or ) (1 - 1-dose 75+ series) 2025 INFLUENZA VACCINE (#1) 2025 Insurance [id number] [place] [address] MEDICAID [place] Advance Directives For more information, please contact: [phone] * Full Code (Latest Code Status on File) Date Activated Date Inactivated Comments 07/05/2011 1:43 PM 07/06/2011 2:13 PM * Full Code Date Activated Date Inactivated Comments 07/05/2011 8:28 AM 07/05/2011 1:43 PM Care Teams Steel Wheel Engraver Relationship Specialty Start Date End Date [facility], External Provider [address] [place] [address] PCP - General Family Practice 06/01/11
--- OUTSIDE RECORDS SUMMARY | 2025-06-20 15:51 | XMS_ITS | Encounter Summary ---
Author Organization [facility] Address [address] [place] [address] Care Team Providers Care Slicing Machine Feeder Name Role Phone [facility], External Provider Primary Care Provider [phone]- [phone] Encounter Details Date Type Department Care Team (Latest Contact Info) Description 08/31/2005 Outpatient Historical [facility] Gastroenterology- [place] [address] [place] [id number] Geo Peck MD NO ADDRESS ON FILE ABDOMINAL PAIN EPIGASTRIC (Primary Dx) Social History Tobacco Use Types Packs/Day Years Used Date Smoking Tobacco: Never Assessed Comments Unknown Sex and Gender Information Value Date Recorded Sex Assigned at Not on file 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
--- OUTSIDE RECORDS SUMMARY | 2025-06-20 15:51 | XMS_ITS | Encounter Summary ---
Author Organization [facility] Address [address] [place] [address] Care Team Providers Care Medical Administrative Technician Name Role Phone [facility], External Provider Primary Care Provider [phone]- [phone] Encounter Details Date Type Department Care Team (Late st Contact Info) Description 07/03/2011 Ancillary Orders [facility] ([facility] Cardiology- [place] [address] [place] [address] Robert Hdez MD [address] [place] [address] PFO (patent foramen ovale) (Primary Dx) Social History Tobacco Use Types Packs/Day Years Used Date Smoking Tobacco: Every Day Cigarettes 0.8 45 Smokeless Tobacco: Never Alcohol Use Standard Drinks/Week Comments No 0 (1 standard drink = 0.6 oz pur e alcohol) Comments No Sex and Gender Information Value Date Recorded Sex Assigned at Not on file 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 Right heart catheterization. 2. Left heart catheterization. 3. Intracardiac echocardiography. 4. Patent foramen ovale closure with an Amplatzer septal occluder 25 mm device. INDICATION: Recurrent stroke with known patent foramen ovale with paradoxic embolization failing antiplatelet therapy. DESCRIPTION OF PROCEDURE: After consents were signed the patient was taken to the cardiac catheterization laboratory and draped in sterile fashion with exposure of bilateral femoral groins. 9 Cymraes sheath was placed in the left femoral vein and a 6 Cymraes sheath in the right femoral vein. Intracardiac echocardiography was performed. Left-sided approach with the catheter positioned in the right atrium. Caval view, as well as atrial septal views. Aortic valve view and home view were obtained. Mitral valve was also well visualized. Findings of endocardiac echocardiography demonstrated generally normal chamber sizes throughout. The tricuspid valve was normal. Morphologically and functioned normally. The aortic valve was tricuspid and normal without regurgitation or evidence of significant calcification or stenosis. The mitral valve was well visualized and functioned normally. Left ventricular chamber size was normal. There is no pre-existing pericardial effusion. 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 There was spontaneous bidirectional flow by color Doppler and bubble study demonstrated a large instantaneous and spontaneously occurring bubble passage from right to left. At this point we proceeded with right heart hemodynamics which demonstrated an RA pressure of about 8 mmHg and minimally passed a J wire easily across the PFO through a multipurpose catheter. Subsequently we performed additional intracardiac echocardiographic views which allowed a more accurate measurement in the size of the defect, which measured almost 14 mm in cross section. At this point we prepared a 25 mm Amplatzer septal occluder device and exchanged the existing 6 Cymraes sheath over an Amplatzer J wire that had been selectively placed in the left superior pulmonary vein. The 9 Cymraes sheath was then taken across the patent foramen ovale. The wire and obturator were exchanged out for the previously prepped 25 mm device into the loading chamber. We then advanced the device under fluoroscopic, as well as intracardiac echocardiography, observation and exposed the left atrial disk within the left atrium. We then retracted the device to slightly perch against the atrial limbus and then exposed the right-sided disc. Further echocardiographic evaluation demonstrated a very good position straddling the aortic limbus, as well as the complete tunnel at the PFO. Push/pull test was negative. Color flow demonstrated minimal residual shunting. With correct positioning we then deployed the device by unscrewing the delivery cable from the device. Repeat inspection of the intracardiac echocardiography, as well as bubble study demonstrated an excellent position avoiding any impingement on the cava, aortic valve or mitral valve. There was no residual shunt by bubble study. There is no pericardial effusion at the end of the procedure and therefore we concluded with exiting in favor of a 9 Cymraes sheath in a right sided femoral position leaving me the 9 Cymraes sheath on the left as well. The patient had been previously anticoagulated with heparin to an ACT of 320 seconds. She had been treated previously with Ancef intravenously. We will continue this for two additional doses. There were no apparent complications. CONCLUSIONS: 1. Recurrent stroke on antiplatelet therapy with known patent foramen ovale with atrial septal aneurysm and spontaneous intracardiac shunting with high likelihood of paradoxic embolization. 2. Successful closure of patent foramen ovale with Amplatzer septal occluder as described above. /[facility] - transcribed in Epic - Procedure Note Robert Hdez MD - 07/06/2011 PROCEDURE PERFORMED: 1. Right heart catheterization. 2. Left heart catheterization. 3. Intracardiac echocardiography. 4. Patent foramen ovale closure with an Amplatzer septal occluder 25 mmdevice. INDICATION: Recurrent stroke with known patent foramen ovale withparadoxic embolization failing antiplatelet therapy. DESCRIPTION OF PROCEDURE: After consents were signed the patient was takento the cardiac catheterization laboratory and draped in sterile fashionwith exposure of bilateral femoral groins. 9 Cymraes sheath was placed inthe left femoral vein and a 6 Cymraes sheath in the right femoral vein.Intracardiac echocardiography was performed. Left-sided approach with thecatheter positioned in the right atrium. Caval view, as well as atrialseptal views. Aortic valve view and home view were obtained. Mitralvalve was also well visualized. Findings of endocardiac echocardiography demonstrated generally normalchamber sizes throughout. The tricuspid valve was normal.Morphologically and functioned normally. The aortic valve was tricuspidand normal without regurgitation or evidence of significant calcificationor stenosis. The mitral valve was well visualized and functionednormally. Left ventricular chamber size was normal. There is nopre- existing pericardial effusion. The atrial septum demonstrated atunneling PFO with an atrial septal aneurysm. There was spontaneousbidirectional flow by color Doppler and bubble study demonstrated a largeinstantaneous and spontaneously occurring bubble passage from right toleft. At this point we proceeded with right heart hemodynamics whichdemonstrated an RA pressure of about 8 mmHg and minimally passed a J wireeasily across the PFO through a multipurpose catheter. Subsequently weperformed additional intracardiac echocardiographic views which allowed ángela accurate measurement in the size of the defect, which measured [id number] mm in cross section. At this point we prepared a 25 mm Amplatzer septal occluder device andexchanged the existing 6 Cymraes sheath over an Amplatzer J wire that hadbeen selectively placed in the left superior pulmonary vein. The 9 Frenchsheath was then taken across the patent foramen ovale. The wire andobturator were exchanged out for the previously prepped 25 mm device intothe loading chamber. We then advanced the device under fluoroscopic, aswell as intracardiac echocardiography, observation and exposed the leftatrial disk within the left atrium. We then retracted the device toslightly perch against the atrial limbus and then exposed the right-sideddisc. Further echocardiographic evaluation demonstrated a very goodposition straddling the aortic limbus, as well as the complete tunnel atthe PFO. Push/pull test was negative. Color flow demonstrated minimalresidual shunting. With correct positioning we then deployed the device by unscrewing thedelivery cable from the device. Repeat inspection of the intracardiacechocardiography, as well as bubble study demonstrated an excellentposition avoiding any impingement on the cava, aortic valve or mitralvalve. There was no residual shunt by bubble study. There is nopericardial effusion at the end of the procedure and therefore weconcluded with exiting in favor of a 9 Cymraes sheath in a right sidedfemoral position leaving me the 9 Cymraes sheath on the left as well. Thepatient had been previously anticoagulated with heparin to an ACT of 320seconds. She had been treated previously with Ancef intravenously. Wewill continue this for two additional doses. There were no apparentcomplications. CONCLUSIONS: 1. Recurrent stroke on antiplatelet therapy with known patent foramenovale with atrial septal aneurysm and spontaneous intracardiac shuntingwith high likelihood of paradoxic embolization. 2. Successful closure of patent foramen ovale with Amplatzer septaloccluder as described above. 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
[2025-06-20 15:56] VITALS: BP 152/82; PULSE 93; RESP 14; TEMP 36.7; O2SAT 99
--- NOTE | 2025-06-20 16:01 | XRR_ITS ---
PROCEDURE INFORMATION: Exam: XR Left Hip Exam date and time: 06/20/2025 4:19 PM Age: 75 years old Clinical indication: Hip pain; Left hip; Additional info: Lt hip/pelvis pain post fall TECHNIQUE: Imaging protocol: Radiologic exam of the left hip. Views: 2 or 3 views hip with pelvis when performed. COMPARISON: CT abdomen pelvis w con* [id number] 10/08/2018 9:37 AM FINDINGS: Bones/joints: AP view of the pelvis and AP and frogleg lateral views of the left hip were generated. The bones and joints are unremarkable. There is no indication of fracture or foreign body. Soft tissues: No soft tissue abnormalities are present. XR/XR hip LT 2-3V wo/w pel* [id number] IMPRESSION: Unremarkable left hip and pelvis series.
--- NOTE | 2025-06-20 16:01 | XRR_ITS ---
PROCEDURE INFORMATION: Exam: XR Chest Exam date and time: 06/20/2025 4:19 PM Age: 75 years old Clinical indication: Pain; Chest pressure; Additional info: SOB; Copd; Fall TECHNIQUE: Imaging protocol: Radiologic exam of the chest. Views: 1 view. COMPARISON: CT chest w con* [id number] 02/23/2025 9:35 AM; CHEST X-RAY, 02/23/2025. FINDINGS: Lungs: Increased density in the right lung apex is present, reflecting patient's chronic posttraumatic right upper lobe pleural thickening. Stable granulomatous calcifications are present again seen in the medial right lung at the level of the aortic arch, and in the posterior mid to inferior left chest, confirmed on prior CT. Pleural spaces: There is no evidence of pneumothorax or pleural effusion. Heart/Mediastinum: Unremarkable. No cardiomegaly. Vasculature: Stable aortic calcifications are present. Bones/joints: An old posterior right 3rd rib fracture is noted. No new fractures are apparent. XR/XR chest 1V portable [id number] IMPRESSION: No sequela of acute trauma.
--- NOTE | 2025-06-20 16:01 | CTR_ITS ---
PROCEDURE INFORMATION: Exam: CT Cervical Spine Without Contrast Exam date and time: 06/20/2025 4:21 PM Age: 75 years old Clinical indication: Injury or trauma; Fall; Blunt trauma; Additional info: Fall/head injury TECHNIQUE: Imaging protocol: Computed tomography of the cervical spine without contrast. Radiation optimization: All CT scans at this facility use at least one of these dose optimization techniques: automated exposure control; mA and/or kV adjustment per patient size (includes targeted exams where dose is matched to clinical indication); or iterative reconstruction. COMPARISON: CT cervical spin wo con* [id number] 10/01/2023 11:45 AM RADIATION DOSE METRICS: Total DLP (mGy-cm): 159.6 FINDINGS: Bones: The spine is imaged from planum sphenoidale through T3. AP alignment and curvature are normal. There is no indication of fracture, lytic, or blastic lesion. Increased upper thoracic kyphosis is suggested, stable from prior study. Mild facet arthropathy is identified, in the right from C2-C3 through C4-C5 and at C7-T1, and on the left from C2-C3 through C4-C5, greatest at C4-C5. There is no foraminal stenosis seen. No significant interval change is apparent. Healed remote right 3rd and 4th rib fractures are present. These are stable from prior study. Salivary glands: There is fatty involution of both parotid glands. The submandibular glands appear normal. Lungs: Lung apices show centrilobular emphysematous changes. Pleural spaces: Some stable pleural thickening in the posterior right lung apex is noted. Thyroid: The left thyroid contains a 14 mm diameter stable low-attenuation nodule, showing no significant change from prior study. Vasculature: Prevertebral soft tissues show distal common carotid artery atheromatous calcifications without visible dissection or significant stenosis. Soft tissues: No cervical soft tissue mass lesions or lymphadenopathy is present. CT/CT cervical spin wo con* [id number] IMPRESSION: 1. Stable cervical spine CT showing no sequela of recent trauma. 2. Old healed right 3rd and 4th posterior rib fractures. 3. Centrilobular pulmonary emphysematous changes. 4. Chronic pleural thickening, posterior right lung apex. 5. Stable 14 mm right thyroid nodule. No follow-up is recommended.
--- NOTE | 2025-06-20 16:01 | CTR_ITS ---
PROCEDURE INFORMATION: Exam: CT Head Without Contrast Exam date and time: 06/20/2025 4:21 PM Age: 75 years old Clinical indication: Injury or trauma; Fall; Blunt trauma (contusions or hematomas); Consciousness not specified; Additional info: Fall/head injury TECHNIQUE: Imaging protocol: Computed tomography of the head without contrast. Radiation optimization: All CT scans at this facility use at least one of these dose optimization techniques: automated exposure control; mA and/or kV adjustment per patient size (includes targeted exams where dose is matched to clinical indication); or iterative reconstruction. COMPARISON: CT head wo con* [id number] 06/03/2024 12:42 PM RADIATION DOSE METRICS: Total DLP (mGy-cm): 1151.3 FINDINGS: Brain: No abnormal extra-axial fluid collections are present. Cerebral ventricles: No ventriculomegaly. Paranasal sinuses: Visualized sinuses are unremarkable. No fluid levels. Mastoid air cells: Visualized mastoid air cells are well aerated. Orbital cavities: Prior cataract surgery is seen. Bones: Unremarkable. No acute fracture. Soft tissues: Unremarkable. Vasculature: A chronic bland left middle cerebral artery CVA is again demonstrated, unchanged in appearance. There is no evidence of intracranial hemorrhage or mass lesion. No parenchymal contusion is identified. Stable mild microangiopathic white matter changes are present. CT/CT head wo con* [id number] IMPRESSION: 1. Stable head CT without sequela of recent acute trauma. 2. Chronic bland left middle cerebral artery CVA. 3. Mild stable microangiopathic white matter changes.
--- NOTE | 2025-06-20 16:01 | XRR_ITS ---
PROCEDURE INFORMATION: Exam: XR Left Elbow Exam date and time: 06/20/2025 4:19 PM Age: 75 years old Clinical indication: Pain; Elbow; Left; Additional info: Lt elbow pain post fall; Open wound to posterior lt elbow TECHNIQUE: Imaging protocol: Radiologic exam of the left elbow. Views: 3 or more views. COMPARISON: No relevant prior studies available. FINDINGS: Bones/joints: There is no acute fracture, lytic, or blastic lesion. No joint effusion or arthropathy is evident. Soft tissues: Normal. Other findings: Radiopaque debris is identified over the extensor soft tissues of the elbow, projecting over the proximal ulna. XR/XR elbow LT min 3V* [id number] IMPRESSION: 1. Extensor surface radiopaque small foreign bodies. 2. No evidence of arthropathy or underlying bone injury.
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
[2025-06-20 16:12] VITALS: RESP 19; O2SAT 100
[2025-06-20] MEDS: fentaNYL 50 mcg/mL INJ 2mL 25 MCG IVP (16:12)
[2025-06-20] MEDS: ondansetron 2 mg/ML SDV 2 mL 4 MG IVP (16:13)
[2025-06-20 16:15] VITALS: BP 150/91; PULSE 83; O2SAT 99
[2025-06-20] MEDS: tetanus-dipt-pertussis 0.5 mL SDV IM (16:46)
[2025-06-20] MEDS: HYDROcodone-acetaminophen 5-325 mg Tablet 1 TAB PO (18:42)
--- NOTE | 2025-06-20 19:00 | PC.NURSE ---
pt up and ambulated to bedside commode, pt used commode and then up to bed. Pt able to do so without assistance, pt family member states we will probably be back later Pt was cleared for discharge. PT IV removed with catheter intact. PT had brought in an empty O2 tank personal from home, this nurse asked pt if she had someone to bring her another tank, or if pt would be able to make it home, pt voiced that she lives [place]. Pt O2 sat has been 100% on 2LNC. Pt has ride home present. Pt transferred self to w.c and then transferred self into car. Pt voiced no further concerns.
[2025-06-20 19:03] VITALS: BP 130/79; PULSE 87; O2SAT 100
== END 2025-06-20 19:04 | disposition home or self-care (01) ==
PROVIDERS: Emergency Provider Physician Assistant; PCP Internal Medicine
DX: S51.012A Laceration without foreign body of left elbow, initial encounter (principal); S50.01XA Contusion of right elbow, initial encounter; S70.02XA Contusion of left hip, initial encounter; Z87.891 Personal history of nicotine dependence; I25.10 Atherosclerotic heart disease of native coronary artery without angina pectoris; I10 Essential (primary) hypertension; Z86.73 Personal history of transient ischemic attack (TIA), and cerebral infarction without residual deficits; W17.89XA Other fall from one level to another, initial encounter
CPT/HCPCS: 12001; 70450; 71045; 72125; 73080; 73502; 90471; 90715; 96374; 96375; 99285; J2405; J3010; J9999

== ENCOUNTER → 2025-08-04 13:17 | Outpatient (BNVA) | payer OTHER, SELFPAY ==
[2024-08-12 11:23] VITALS: BP 143/61; BMI 33.8
== END ==
PROVIDERS: PCP Internal Medicine; Visit Provider Psychiatry & Neurology Psychiatry
DX: F25.1 Schizoaffective disorder, depressive type (principal); F41.1 Generalized anxiety disorder; F42.3 Hoarding disorder
CPT/HCPCS: 80061; 83036

== ENCOUNTER → 2025-08-13 12:35 | Outpatient (BNVA) | payer MEDICARE, MEDICAID, SELFPAY ==
[2025-08-05 14:17] VITALS: BP 128/61; BMI 22.5
== END ==
PROVIDERS: PCP Internal Medicine; Visit Provider Internal Medicine Cardiovascular Disease
DX: J44.9 Chronic obstructive pulmonary disease, unspecified (principal); I47.10 Supraventricular tachycardia, unspecified; I10 Essential (primary) hypertension; I25.10 Atherosclerotic heart disease of native coronary artery without angina pectoris; G89.4 Chronic pain syndrome
CPT/HCPCS: 99214

== ENCOUNTER 2025-08-25 07:58 | Outpatient (CLI) | payer MEDICARE, MEDICAID, SELFPAY ==
[2025-08-05 14:17] VITALS: BP 128/61; BMI 22.5
[2025-08-25 08:49] VITALS: BMI 22.1
--- NOTE | 2025-08-25 08:49 | ECG_ITS ---
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 Interpretive Statements LEXISCAN: Procedure: At the baseline, the blood pressure was 113/77 mmHg with a heart rate of 72 bpm. The electrocardiogram showed normal sinus rhythm, left bundle branch block with normal ST and T's. The Lexiscan was infused over a period of 20 seconds. A total of 0.4 mg of Lexiscan was infused. The stress phase was continued for a total of 5 minutes. Heart rate was at the end of stress phase was 96 bpm and a blood pressure of 136/59 mmHg. The EKG at the peak infusion revealed normal sinus rhythm with non-significant ST-T wave changes. Sestamibi was injected 20 seconds after the Lexiscan infusion. Blood pressure at the end of recovery phase was 140/59 mmHg with a heart rate of 95 bpm. Conclusion: 1. Normal EKG response to Lexiscan infusion 2. No Lexiscan induced chest pain or cardiac arrhythmia. 3. Normal blood pressure and heart rate response. 4. Sestamibi/sestamibi perfusion scan pending; see separate report. Electronically Signed On 09-13-2025 22:48:47 CDT by Brandon Pires M.D. [email or web address]
--- NOTE | 2025-08-25 08:49 | NMCV_ITS ---
NM lisa perf SPECT r/s* [id number] Kalyani Cassidy Age: 75 Gender: F : 1950 Exam Date: 08/25/2025 08:55 Ordering Phys: Nevin Roman MD ([email or web address]) Technologist: GODWIN Kirk Exam Location: [facility] Indications: cp STRESS TEST Please see separate stress test report in [facility] for full findings IMAGE PROTOCOL Rest/Stress 1 Lexiscan Day Radiopharmaceutical Dose (mCi) Administration Site Administered by Rest: Tc-99m 10.8 IV GODWIN Kirk Sestamibi Stress:Tc-99m 32.6 IV Akilah Hagen, CUSTOMER ADVISOR Sestamibi Rest: 25-Aug-2025 60 Discovery 630 Stress: 25-Aug-2025 30 Discovery 630 0.4mg Lexiscan. Supine position only as patient was unable to lay prone. SPECT RESULTS Technical Quality: Good Raw Data Analysis: Normal Image Corrections: No attenuation or motion correction applied Summed Stress Score: 4 Summed Rest Score: 8 Summed Difference Score: 0 PERFUSION FINDINGS Small area of persistently decreased tracer uptake noted in apex of the left ventricle, and absence of wall motion abnormality suggestive of apical thinning artifact FUNCTIONAL RESULTS (calculated via Gated SPECT) Stress Image LV EF (%): 75 Stress EDV (mL):55 TID: 1.22 Stress ESV (mL):14 FUNCTIONAL FINDINGS: There is normal left ventricular systolic function. IMPRESSIONS This study is negative for ischemia and low probability for obstructive coronary artery disease. Nevin Roman MD (Electronically Signed) Final Date: 25 August 2025 11:52 S
[2025-08-25] MEDS: ondansetron 2 mg/ML SDV 2 mL 4 MG IVP (09:45)
[2025-08-25 10:04] VITALS: BP 140/59; PULSE 94
== END 2025-08-25 07:59 | disposition home or self-care (01) ==
LOC: CDL 08:01
PROVIDERS: PCP Physician Assistant; Visit Provider Internal Medicine Cardiovascular Disease
DX: R07.9 Chest pain, unspecified (principal); R06.02 Shortness of breath
CPT/HCPCS: 36415; 78452; 93017; 96374; 96375; A9500; J2405; J2785

== ENCOUNTER 2025-08-27 10:30 | Outpatient (CLI) | payer MEDICARE, MEDICAID, SELFPAY ==
[2025-08-05 14:17] VITALS: BP 128/61; BMI 22.5
--- NOTE | 2025-08-27 10:45 | CTR_ITS ---
PROCEDURE INFORMATION: Exam: CT Chest With Contrast; Diagnostic Exam date and time: 08/27/2025 11:05 AM Age: 75 years old Clinical indication: Condition or disease; Lung condition and disease; Cancer of the lung; Bilateral; Unspecified; Primary cancer: Lung 5 years ago, radiation tx; Prior surgery; Surgery date: 6+ months; Surgery type: Hole in heart repaired; SOB, HX of hole in her heart, dx with lung CA 5 yrs ago, rad tx. ; Additional info: C34.90 - malignant neoplasm of unspecified part of unspec. . . , TECHNIQUE: Imaging protocol: Diagnostic computed tomography of the chest with contrast. Radiation optimization: All CT scans at this facility use at least one of these dose optimization techniques: automated exposure control; mA and/or kV adjustment per patient size (includes targeted exams where dose is matched to clinical indication); or iterative reconstruction. Contrast material: OMNI 350; Contrast volume: 100 ml; Contrast route: INTRAVENOUS (IV); COMPARISON: CT angio chest PE protcl [id number] 05/26/2024 9:[address] chest from 02/23/2025 RADIATION DOSE METRICS: Total DLP (mGy-cm): 207.39 FINDINGS: Thyroid: There is a complex left thyroid cyst or nodule measuring 15 mm. Lungs: Again seen is the moderate architectural changes of centrilobular emphysema. Postsurgical changes status post partial pneumonectomy of the dorsal aspect of the right upper lobe is stable with marginal pleural and pulmonary parenchymal scarring. There is a calcified nodule within the posterior left lower lobe. There is a small mixed density nodule within the posterosuperior aspect of the right lower lobe measuring 4 mm on image 25 of series 4. This is not definitely confirmed on previous imaging. There is a stable 3 mm nodule within the medial left lower lobe on image 32 of series 4. There is a stable 3 mm nodule within the left upper lobe peripherally on image 19 of series 4. Pleural spaces: The prominent pleural thickening is stable along the dorsal superior right hemithorax adjacent to the postsurgical thoracotomy defects. Heart: Unremarkable. No cardiomegaly. No pericardial effusion. Coronary arteries: There is no prominent coronary artery calcification appreciated. Lymph nodes: Unremarkable. No enlarged lymph nodes. Vasculature: The thoracic aorta is normal in caliber with [id number] marginal atherosclerotic calcified plaque. Liver: Again seen is the right hepatic lobe lesion unchanged in size or appearance. Gallbladder and biliary ducts: Cholecystectomy Adrenal glands: There is stable nonspecific hypertrophy or nodularity to the left adrenal gland. Bones/joints: There are surgical thoracotomy defects are present at the dorsal superior right chest wall and ribs. There is no acute osseous abnormality appreciated. Soft tissues: Unremarkable. CT/CT chest w con* [id number] IMPRESSION: 1. No acute process 2. Centrilobular emphysema 3. Multiple small pulmonary nodules as detailed. 4. Stable right hepatic lobe oval lesion. 5. Stable left adrenal gland nodularity or hypertrophy. 6. Left thyroid nodule or cyst. Consider follow-up thyroid ultrasound if not recently performed. Recommend CT Chest at 3-6 months. If stable, then consider CT Chest at 2 years and 4 years. (Reference: El) References: El Wild et al. Guidelines for Management of Incidental Pulmonary Nodules Detected on CT Images: From the Fleischner Society 2017. Radiology. 2017;284(1):228-243. COMMENTS: 1. Consistent with the [place]'s Incidental Findings Committee white paper (J Am Leon Radiol 2015): In patients aged 35 years and older with an incidental thyroid nodule equal to or greater than 1.[address], MRI or extrathyroidal US, further evaluation with dedicated thyroid US is recommended for patients with normal life expectancy and without comorbidities. For smaller nodules without suspicious features, no further evaluation or follow up is recommended. 2. The presence of pulmonary emphysema on CT is an independent risk factor for lung cancer. In the absence of a history or active diagnosis of lung cancer, it is recommended that this patient with emphysema be evaluated for enrollment in a low dose CT lung cancer screening program.
[2025-08-27 11:05] LABS: Blood Urea Nitrogen 5 mg/dL (8-23)
[2025-08-27] MEDS: iohexol 350 mg/mL 500 mL Btl (per mL) IV (11:20)
== END 2025-08-27 10:31 | disposition home or self-care (01) ==
LOC: RAD 10:32
PROVIDERS: Radiology Diagnostic Radiology; PCP Physician Assistant; Visit Provider Radiology Radiation Oncology
DX: C34.91 Malignant neoplasm of unspecified part of right bronchus or lung (principal); C34.92 Malignant neoplasm of unspecified part of left bronchus or lung; Z98.890 Other specified postprocedural states; J43.2 Centrilobular emphysema; R91.8 Other nonspecific abnormal finding of lung field; K76.9 Liver disease, unspecified; E27.8 Other specified disorders of adrenal gland; E04.1 Nontoxic single thyroid nodule; Z90.2 Acquired absence of lung [part of]; J98.4 Other disorders of lung; J92.9 Pleural plaque without asbestos; I70.0 Atherosclerosis of aorta; Z90.49 Acquired absence of other specified parts of digestive tract; G43.711 Chronic migraine without aura, intractable, with status migrainosus
CPT/HCPCS: 64615; 71260; 82565; 84520; J9999

== ENCOUNTER 2025-09-04 08:43 | Oncology outpatient (recurring) (ONCR) | payer MEDICARE, MEDICAID, SELFPAY ==
[2024-08-12 11:23] VITALS: BP 143/61; BMI 33.8
[2025-08-05 14:17] VITALS: BP 128/61; BMI 22.5
--- NOTE | 2025-09-04 09:25 | ONCRAD EPV_ITS ---
, Radiation Oncology Established Patient Visit Patient: Ange Auguste [id number] : 1950> Age: 75> Sex: Female> Dictated by: Zak Adam Date of Service: 09/04/2025 Referring Physician(s) : Shara Nguyen Diagnosis: 34.11 - Malignant neoplasm of upper lobe, right bronchus or lung, Diagnosed 11/25/2020 (Active) , NEW RLL NODULE 4MM-SUGGESTED TO GET NEW CT CHEST N 3-6 MONTHS Stage IA3, T1c, N0, M0 Lung cancer. This is a 70-year-old woman with newly diagnosed lung cancer. She has COPD and she had been referred to a cut roll machine operator about a year ago. On her follow-up visit in August [address] reported a new slightly spiculated pleural-based nodule in the right upper lobe measuring 2.2 x 1.1 cm. The appearance was suspicious for malignancy. Other small nodules in the left lung appeared stable. An 8 mm precarinal lymph node appeared stable. Calcified subcarinal lymph nodes appeared consistent with old granulomatous disease. Further evaluation with PET/CT on 10/06/2020 showed FDG avid dominant mass in the posterior right upper lobe measuring 1.6 x 2.1 cm, SUV 15.8, consistent with primary lung cancer. Other subcentimeter nodules were FDG negative. There were no other areas of abnormal uptake noted on that study. She underwent CT directed needle biopsy of the right upper lobe mass on 11/25/2020. Pathology showed scant poorly differentiated carcinoma. The reported differential included but was not limited to small cell carcinoma or basaloid squamous cell carcinoma. There was insufficient tissue available for further analysis. She is seen now for further management. She has not had good energy lately, as she unfortunately has been suffering significant depression due to her significant other having recently of cancer. Her ECOG score is 1. Her appetite has been good and her weight has been stable. She has not had fever. She does report having some hot flashes and sweating. She sometimes has sore throat or difficulty swallowing, attributable to her inhalers. She has shortness of breath, but she does not complain of cough. She sometimes has chest pain. She reports having some acid reflux. She has no other GI or complaints. She has some chronic back pain and she also has arthritis pain in her knees. She has chronic migraine, for which she has been getting Botox injections. 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 Radiotherapy to Date: Course: Lung - SABR 2020 5400cGy/3FX Treatment Site: Lung Ca, Ref. ID: [id number], Energy: 6X, Dose/Fx (cGy): 1,800, #Fx: 3 / 3, Dose Correction (cGy): 0, Total Dose Delivered (cGy): 5,400, Start Date: 02/07/2021, End Date: 02/11/2021, Elapsed Days: 4 Current History: This is a pleasant 75-year-old female with longstanding history of COPD. She sees a cut roll machine operator in [place]. CT of the chest on 08/27/2025 showed postsurgical changes partial pneumonectomy of the dorsal aspect of the RUL that is stable with scarring noted. There is a new small mixed density nodule within the posterior superior aspect RLL measuring 4 mm-suggestion to repeat CT Chest in 3 to 6 months. Current Medications: albuterol sulfate 2.5 mg inhalation Q4H PRN albuterol sulfate 90 mcg/actuation 1 inh inhalation DAILY PRN alendronate mg PO .weekly azelastine 1 spray intranasal BID PRN docusate sodium (Colace) 100 mg PO QID PRN epinephrine INJECT DIRECTED NEEDED FOR ANAPHYLAXIS escitalopram oxalate 5 mg PO .morning ttaygvoxaqh-[id number]-[id number] 100-62.5-25 mcg (Trelegy Ellipta) 1 inh inhalation DAILY guaifenesin ER (Mucinex) 600 mg PO QID PRN levothyroxine 37.5 mcg PO DAILY lisinopril 20 mg PO DAILY metoprolol succinate ER 12.5 mg (1/2 x 25 mg) PO DAILY montelukast (Singulair) 10 mg PO DAILY naloxone 4 mg/actuation (Narcan) 4 mg intranasal Q3M PRN nitroglycerin 0.4 mg sublingual Q5M PRN nitroglycerin 0.1 mg/hr 0.1 mg transdermal DAILY onabotulinumtoxinA (Botox) Inject 155 units IM-31 sites, 5 units/site per FDA protocol: in procerus, in bilateral broommaking supervisor, frontalis (2 sites bilaterally),temporalis (4 sites bilateral), occipitalis (3 sites bilateral), paraspinosus cervical bilaterally (2 injections), trapezius (3 sites bilateral) oxycodone 10 mg PO BID PRN pantoprazole 40 mg PO BID roflumilast 500 mcg PO DAILY tizanidine 2 mg PO TID PRN 30 daysAllergies: venom-honey bee Allergy (Severe, Verified 08/27/25 13:48) ALGY-Anaphylaxis amlodipine Allergy (Verified 08/27/25 13:48) ALGY-Rash peanut Allergy (Verified 08/27/25 13:48) ALGY-Anaphylaxis Current Complaints / Review of Systems: . Vital Signs: Performed on 09/04/2025 8:55 AM BMI - 21.956 kg/m2, Height - 61 in, Weight - 116.2 lbs, Temperature - 96.7 f, Pulse - 89 /min, Respiration - 18 /min, O2 Sat - 99 %, Pain - 0, Fatigue - 0 and BP - 151/ 80 mm(hg)(high/). Physical Exam: General: Alert and oriented x 3. No acute distress. HEENT: Normocephalic, atraumatic. Extraocular Movements Intact: Pupils Equal, Round, Reactive to Light and Accommodation: Sclerae anicteric. Oral cavity is clear without lesions, masses or ulcers. NECK: Supple without supraclavicular or jugular lymphadenopathy. LUNGS: Clear to auscultation bilaterally without rales, rhonchi or wheeze. No intercostal retraction noted. Patient with nasal O2. HEART: Regular rate and rhythm, normal S1 and S2 without murmur, gallop or rub. MUSCULOSKELETAL: No tenderness or percussion pain over the axial skeleton, scapulae or pelvis. ABDOMEN: Soft, nontender, nondistended without masses or organomegaly. Bowell sounds are present. EXTREMITIES: No peripheral edema is identified. Limited motor and sensory examination are grossly intact and symmetric bilaterally. NEUROLOGIC: Cranial nerves II ???XII are grossly intact. Normal sensation, strength 5/5 in all extremities, normal gait, no ataxia. Performance Status: KPS 70 Lab: None pending. Pathology: Primary, c34.11 - malignant neoplasm of upper lobe, right bronchus or lung, Diagnosed 11/25/2020 (active) stage ia3, t1c, n0, m0. Imaging: See HPI Impression: C34.11 - Malignant neoplasm of upper lobe, right bronchus or lung, Diagnosed 11/25/2020 (Active) , NEW RLL NODULE 4MM-SUGGESTED TO GET NEW CT CHEST N 3-6 MONTHS Stage IA3, T1c, N0, M0 PLAN: Continue follow-up with pulmonology Spirometry exercises CT CAP chest prior to next visit RTC in November 2025 or sooner if need be. Signed by: 09/04/2025 9:24:02 AM <<Signature on File>> Time spent with patient/review of records/production of document: 25 minutes CPT Code: CPT Code:
== END 2025-09-18 23:59 | disposition home or self-care (01) ==
LOC: ONCMED 08:44
PROVIDERS: PCP Physician Assistant; Visit Provider Radiology Radiation Oncology
DX: R91.1 Solitary pulmonary nodule (principal); M54.9 Dorsalgia, unspecified; G89.29 Other chronic pain; M17.0 Bilateral primary osteoarthritis of knee; G43.909 Migraine, unspecified, not intractable, without status migrainosus; I69.851 Hemiplegia and hemiparesis following other cerebrovascular disease affecting right dominant side; Z92.3 Personal history of irradiation; J44.9 Chronic obstructive pulmonary disease, unspecified
CPT/HCPCS: 99213

== ENCOUNTER → 2025-09-15 07:52 | Outpatient (BNVA) | payer MEDICARE, MEDICAID, SELFPAY ==
[2025-08-05 14:17] VITALS: BP 128/61; BMI 22.5
== END ==
PROVIDERS: PCP Physician Assistant; Visit Provider Podiatrist Foot & Ankle Surgery
DX: E11.8 Type 2 diabetes mellitus with unspecified complications (principal); L60.3 Nail dystrophy; R09.89 Other specified symptoms and signs involving the circulatory and respiratory systems; I73.9 Peripheral vascular disease, unspecified
CPT/HCPCS: 11721